=== PATIENT | female | born 1935 | race Caucasian/White ===

== ENCOUNTER 2017-09-10 19:02 | Inpatient (IN) | payer OTHER, MEDICARE ==
[~2017-09-10] VITALS: Ht 165.1 cm; Wt 77.8 kg
--- NOTE | 2017-09-10 19:23 | ED GENERAL ADULT ---
History of Present Illness General Chief Complaint: Fall Stated Complaint: PT FELL, AMS, CONFUSION, SOB Source: patient, family Exam Limitations: no limitations Vital Signs & Intake/Output Vital Signs & Intake/Output Vital Signs Date Time Temp Pulse Resp B/P B/P Pulse O2 O2 Flow FiO2 Mean Ox Delivery Rate 09/10 2149 157 18 133/82 09/10 2148 157 18 133/82 96 Room Air 09/10 2124 178 18 101/77 97 Room Air 09/11 2055 97 Room Air 09/10 2044 159 16 110/73 97 Room Air 09/10 2013 178 18 152/67 09/10 1917 97.2 75 20 110/79 94 Room Air Triage Note: PER , PT FELL ON 09/01 DUE TO WEKANESS. NOW HAS PROGRESSIVE WEKANESS, CONFUSION , POOR PO INTAKE. STATES INR IS 11, UNSURE IF PT IS COMPLIANT WITH MEDS. EKG DONE ON ARRIVAL Triage Nurses Notes Reviewed? yes Onset: Gradual Duration: week(s):, waxing and waning Timing: recent history Injury Environment: home Severity: mild Modifying Factors: Improves With: rest. Associated Symptoms: palpitations HPI: 82 yo woman h/o afib, presents with weakness. Per family, she has had reduced oral intake for the past 1-1.5 weeks, with questionable compliance of her medications. She notes that today she felt weaker and then felt her heart rate was very rapid. She noted palpitations, but no dizziness, chest pain, headache. Past History Travel History Traveled to [place] past 21 day No Medical History Any Pertinent Medical History? see below for history Cardiovascular: AFIB, myocardial infarction Surgical History Surgical History: none Psychosocial History What is your primary language Maltese Tobacco Use: Quit >30 days ago ETOH Use: denies use Family History Hx Contributory? No Review of Systems Review of Systems Constitutional: Reports: no symptoms. EENTM: Reports: no symptoms. Respiratory: Reports: no symptoms. Cardiovascular: Reports: no symptoms. GI: Reports: no symptoms. Genitourinary: Reports: no symptoms. Musculoskeletal: Reports: no symptoms. Skin: Reports: no symptoms. Neurological/Psychological: Reports: no symptoms. Hematologic/Endocrine: Reports: no symptoms. Immunologic/Allergic: Reports: no symptoms. All Other Systems: Reviewed and Negative Physical Exam Physical Exam General Appearance: well developed/nourished, no apparent distress Head: atraumatic, normal appearance Eyes: Bilateral: normal appearance. Ears, Nose, Throat: normal pharynx, normal ENT inspection Neck: normal inspection Respiratory: normal breath sounds, chest non-tender, no respiratory distress, quiet respiration Cardiovascular: tachycardic, irregular Gastrointestinal: normal bowel sounds, soft, non-tender, no organomegaly Back: normal inspection, normal range of motion Extremities: normal inspection, normal capillary refill, normal range of motion, no edema Neurologic/Psych: no motor/sensory deficits, awake, alert, oriented x 3 Skin: intact, normal color, warm/dry Core Measures ACS in differential dx? No CVA/TIA Diagnosis: No Sepsis Present: No Sepsis Focused Exam Completed? No Progress Differential Diagnoses I considered the following diagnoses in my evaluation of the patient: Plan of Care: Orders Procedure Date/time Status Nothing by Mouth 09/11 B Active Patient Data 09/10 2245 Active Saline Lock 09/10 2237 Active Misc Message 09/10 2237 Active ED Holding Orders 09/10 2237 Active Admit to inpatient 09/10 2237 Active Vital Signs 09/10 2237 Active Code Status 09/10 2237 Active TROPONIN LEVEL 09/10 1922 Complete PARTIAL THROMBOPLASTIN TIME 09/10 1922 Complete PROTHROMBIN TIME 09/10 192 Complete LIPASE 09/10 1922 Complete HEPATIC FUNCTION PANEL 09/10 1922 Complete D-DIMER 09/10 1922 Complete CBC WITHOUT DIFFERENTIAL 09/10 1922 Complete BASIC METABOLIC PANEL 09/10 1922 Complete AMYLASE 09/10 1922 Complete EKG 09/10 1905 Active Current Medications Sig/Willy Start time Last Medication Dose Stop Time Status Admin Metoprolol Tartrate 5 MG ONCE ONE 09/10 2299 UNVr (Lopressor) 09/10 230 Sodium Chloride 1,000 ML BOLUS ONE 09/10 230 UNVr (Normal Saline 0.9%) 09/10 2359 Diltiazem HCl 125 MG Q8H 09/10 2129 UNVr 09/10 (Cardizem DRIP) 2129 Dextrose/Water 100 ML (D5W) Laboratory Tests 09/10/171955: Anion Gap 15, Estimated GFR 39 L, BUN/Creatinine Ratio 23.8, Glucose 109 H, Calcium 9.6, Total Bilirubin 1.0, Direct Bilirubin 0.7 H, AST 19, ALT 25, Alkaline Phosphatase 59, Troponin I < 0.01, Total Protein 7.1, Albumin 3.8, Amylase 56, Lipase 214, PT 100.3 *H, INR 9.00 *H, APTT 46 H, D-Dimer High Sensitivty < 200, CBC w Diff NO MAN DIFF REQ, RBC 4.78, MCV 87.5, MCH 28.9, MCHC 33.0, RDW 16.9 H, MPV 11.5 H, Gran % 71.3, Lymphocytes % 19.2 L, Monocytes % 8.7, Eosinophils % 0.3, Basophils % 0.5, Absolute Granulocytes 3.8, Absolute Lymphocytes 1.0 L, Absolute Monocytes 0.5, Absolute Eosinophils 0, Absolute Basophils 0 Diagnostic Imaging: Viewed by Me: Radiology Read, CT Scan. Discussed w/RAD: Radiology Read, CT Scan. Radiology Impression: PATIENT: JESSIE LEON PRESENT AGE: 82 PATIENT ACCOUNT NO: [id number] : 33 LOCATION: [facility] ORDERING PHYSICIAN: Asim Hancock MD SERVICE DATE: 09/10/17 EXAM TYPE: CAT - CT CERV SPINE WO IV CONTRAST; CT HEAD WO IV CONTRAST EXAMINATION: CT HEAD WITHOUT CONTRAST CT CERVICAL SPINE WITHOUT CONTRAST CLINICAL INFORMATION: Trauma. Change in mental status. Patient is 82 years old. COMPARISON: None. TECHNIQUE: Contiguous axial imaging was performed from the skull base to vertex without intravenous administration of contrast. Multidetector helical imaging was performed through the cervical spine. DLP: 931 mGy-cm. FINDINGS: HEAD: There is no evidence of acute intracranial hemorrhage or territorial infarction. No abnormal mass effect or midline shift is seen. Larios to white matter differentiation is well preserved. No extra-axial fluid collections are identified. The ventricles are enlarged consistent with the deepened sulci due to age related atrophy. Periventricular white matter hypoattenuation is due to microvascular disease. The osseous structures and soft tissues are normal. There is considerable calcification involving the cavernous portions of both internal carotid arteries. The mastoid air cells and visualized portions of the paranasal sinuses are well aerated. CERVICAL SPINE: No acute fracture or dislocation is identified in the cervical spine. Vertebral height is preserved. There is anterolisthesis of C3 on C5 and C7 and T1. Due to significant facet arthritis. There is significant disc space narrowing at the levels of C4-C7. The atlantoaxial articulation is normally maintained. The paraspinal soft tissues are normal. Groundglass opacity in the left apex be due to small airways disease. IMPRESSION: 1. No acute intracranial pathology. 2. No evidence of acute cervical spine traumatic injury. Cervical spondylosis. DICTATED BY: Suhail Mckeon MD DATE/TIME DICTATED:09/10/172100 CASE ADVOCATE:KASSANDRA DATE/TIME TRANSCRIBED:09/10/172100 CONFIDENTIAL, DO NOT COPY WITHOUT APPROPRIATE AUTHORIZATION. <Electronically signed in Other Vendor System> SIGNED BY: Suhail Mckeon MD 09/10/172117 CXR Impression: PATIENT: JESSIE LEON PRESENT AGE : 82 PATIENT ACCOUNT NO: [id number] : 33 LOCATION: [facility] ORDERING PHYSICIAN: Asim Hancock MD SERVICE DATE: 09/10/17 EXAM TYPE: RAD - XRY-PORTABLE CHEST XRAY EXAMINATION: XR PORTABLE CHEST CLINICAL INFORMATION: Chest pain COMPARISON: None TECHNIQUE: Portable frontal view of the chest was obtained. 8:06 PM FINDINGS: Heart size is enlarged. There is vascular wall calcifications of aortic arch. There is no acute abnormality. There is no pulmonary vascular congestion. The lungs are clear. No pleural effusion. No pneumothorax. IMPRESSION: No acute abnormality of the chest. DICTATED BY: Miguel Penn MD DATE/TIME DICTATED:09/10/172024 CASE ADVOCATE:KASSANDRA DATE/ TIME TRANSCRIBED:09/10/172024 CONFIDENTIAL, DO NOT COPY WITHOUT APPROPRIATE AUTHORIZATION. <Electronically signed in Other Vendor System> SIGNED BY: Miguel Penn MD 09/10/172028 Initial ED EKG: AFIB, RATE 170 Departure Departure Disposition: STILL A PATIENT Condition: Stable Clinical Impression Primary Impression: Atrial fibrillation with rapid ventricular response Secondary Impressions: Dehydration, Renal failure Referrals: Xavier LORENZO,Anthony Kumar Departure Forms: Customer Survey General Discharge Information Comments 09/10/17, 21:33... discussed with dr. palafox... pt with afib with rvr, on dilt gtt... merits admission, dilt gtt, for further evaluation. Admission Note Spoke With: Daysi Amador MD Documentation of Exam: Documentation of any treatments & extenuating circumstances including Concerns Regarding Discharge (functional status, medication knowledge or non-compliance, living conditions, etc.) that warrant an admission rather than observation: pt with afib with RVR, likely due to dehydration.... pt tolerating iv fluids... on dilt gtt as well... merits tele, monitoring, cards eval. Critical Care Note Critical Care Note Critical Care Time: 30-74 min
[2017-09-10 20:13] LABS: ABSOLUTE BASOPHIL COUNT 0 /CUMM (0.0-0.2); ABSOLUTE EOSINOPHIL COUNT 0 /CUMM (0.0-0.7); ABSOLUTE GRANULOCYTE CT 3.8 /CUMM (1.4-6.5); ABSOLUTE MONOCYTE COUNT 0.5 /CUMM (0.10-0.60); BASOPHIL % 0.5 % (0.0-2.0); EOSINOPHIL % 0.3 % (0-5); GRANULOCYTE % 71.3 % (42.2-75.2); HEMATOCRIT 41.8 % (37-47); MEAN CORPUSCULAR HGB 28.9 PG (27.0-31.0); MEAN CORPUSCULAR VOLUME 87.5 FL (81.0-99.0); MEAN PLATELET VOLUME 11.5 FL (7.4-10.4); PLATELET COUNT 101 /CUMM (130-400); RBC DISTRIBUTION WIDTH 16.9 % (11.5-14.5); RED BLOOD CELL CT 4.78 /CUMM (4.20-5.40); WHITE BLOOD CELL COUNT 5.4 /CUMM (4.8-10.8)
[2017-09-10 20:19] LABS: PTT 46 SEC (25-37)
--- NOTE | 2017-09-10 20:29 | RADIOLOGY REPORT ---
EXAMINATION: XR PORTABLE CHEST CLINICAL INFORMATION: Chest pain COMPARISON: None TECHNIQUE: Portable frontal view of the chest was obtained. 8:06 PM FINDINGS: Heart size is enlarged. There is vascular wall calcifications of aortic arch. There is no acute abnormality. There is no pulmonary vascular congestion. The lungs are clear. No pleural effusion. No pneumothorax. IMPRESSION: No acute abnormality of the chest.
[2017-09-10 20:52] LABS: PT 100.3 SEC (9.4-12.5)
--- NOTE | 2017-09-10 21:18 | CT SCAN REPORT ---
EXAMINATION: CT HEAD WITHOUT CONTRAST CT CERVICAL SPINE WITHOUT CONTRAST CLINICAL INFORMATION: Trauma. Change in mental status. Patient is 82 years old. COMPARISON: None. TECHNIQUE: Contiguous axial imaging was performed from the skull base to vertex without intravenous administration of contrast. Multidetector helical imaging was performed through the cervical spine. DLP: 931 mGy-cm. FINDINGS: HEAD: There is no evidence of acute intracranial hemorrhage or territorial infarction. No abnormal mass effect or midline shift is seen. Larios to white matter differentiation is well preserved. No extra-axial fluid collections are identified. The ventricles are enlarged consistent with the deepened sulci due to age related atrophy. Periventricular white matter hypoattenuation is due to microvascular disease. The osseous structures and soft tissues are normal. There is considerable calcification involving the cavernous portions of both internal carotid arteries. The mastoid air cells and visualized portions of the paranasal sinuses are well aerated. CERVICAL SPINE: No acute fracture or dislocation is identified in the cervical spine. Vertebral height is preserved. There is anterolisthesis of C3 on C5 and C7 and T1. Due to significant facet arthritis. There is significant disc space narrowing at the levels of C4-C7. The atlantoaxial articulation is normally maintained. The paraspinal soft tissues are normal. Groundglass opacity in the left apex be due to small airways disease. IMPRESSION: 1. No acute intracranial pathology. 2. No evidence of acute cervical spine traumatic injury. Cervical spondylosis.
--- NOTE | 2017-09-10 22:52 | History & Physical ---
Crystal LORENZO,[facility] 09/10/17 9837: General Information and HPI MD Statement: I have seen and personally examined JESSIE LEON and documented this H&P. The patient is a 82 year old F who presented with a patient stated chief complaint of [rapid heart rate]. Source of Information: patient, family Exam Limitations: no limitations History of Present Illness: 82 yo F with PMH of Atrial Fibrilliation and remote history of ND 20 years ago was brought in to the ED by her family members for evaluation of weakness and poor appetite. Most of the history has been obtained from the [facility]. The daughter states that for the past two weeks the patient has not been eating and drinking properly. She also has been requiring the use of a walker while previously she was independent. She has been inconsistent with her doctors appointments. Last week she went to the Coumadin clinic for her INR. She got a call from the clinic that her INR is high and she should come back to the clinic. However, the patient never went and had been avoiding to go back there. She follows quartz mounter Dr. Park at [place] for A. fib who according to the daughter sees him twice a year. The patient's family members were concerned about her as they noticed her to be confused as well and after a family meeting tonjasmina, they decided to bring her to the ED as they felt something was wrong with her. Allergies/Medications Home Med list Diltiazem HCl (Cartia Xt) 240 MG CAP.ER.24H 240 MG PO Q24 HEART HEALTH ( Reported) Metoprolol Succinate 200 MG TAB.ER.24H 1 TAB PO DAILY HEART HEALTH (Reported) Rosuvastatin Calcium (Crestor) 10 MG TABLET 1 TAB PO DAILY HYPERLIPIDEMIA ( Reported) Past History Travel History Traveled to [place] past 21 day No Medical History Cardiovascular: AFIB, myocardial infarction Surgical History Surgical History: none Past Family/Social History Psychosocial History ETOH Use: denies use Review of Systems Review of Systems Constitutional: Denies: chills, fever. EENTM: Reports: no symptoms. Cardiovascular: Reports: peripheral edema. Denies: chest pain. Respiratory: Denies: short of breath. GI: Reports: no symptoms. Musculoskeletal: Denies: joint pain. Skin: Reports: no symptoms. Neurological/Psychological: Reports: no symptoms. Hematologic/Endocrine: Reports: no symptoms. Exam & Diagnostic Data Last 24 Hrs of Vital Signs/I&O Vital Signs Date Time Temp Pulse Resp B/P B/P Pulse O2 O2 Flow FiO2 Mean Ox Delivery Rate 09/11 0136 158 09/109 142 16 115/54 97 Room Air 09/10 2303 162 16 103/72 09/100 157 18 133/82 09/10 2148 157 18 133/82 96 Room Air 09/10 2124 178 18 101/77 97 Room Air 09/11 2055 97 Room Air 09/10 2044 159 16 110/73 97 Room Air 09/10 2013 178 18 152/67 09/10 1917 97.2 75 20 110/79 94 Room Air Intake & Output 09/11 0800 09/11 0000 09/10 1600 Intake Total 2500 2000 Output Total 200 100 Balance 2300 1900 Intake, IV 2500 2000 Output, Urine 200 100 Patient 140 lb Weight Weight Reported by Patient Measurement Method Physical Exam General Appearance Alert, Oriented X3, Cooperative, No Acute Distress Skin No Rashes, No Breakdown Skin Temp/Moisture Exam: Warm/Dry Sepsis Skin Exam (color): Normal for Ethnicity HEENT Atraumatic Cardiovascular Normal S1, Normal S2, No Murmurs, tachycardia Lungs Clear to Auscultation, Normal Air Movement Abdomen Soft, No Tenderness Neurological Normal Speech Extremities b/l non pitting lower extremity edema Diagnostic Data CXR Results Heart size is enlarged. There is vascular wall calcifications of aortic arch. There is no acute abnormality. There is no pulmonary vascular congestion. The lungs are clear. No pleural effusion. No pneumothorax. Assessment/Plan Assessment: 82 yo F with PMH of Atrial Fibrilliation and remote history of ND 20 years ago was brought in to the ED by her family members for evaluation of weakness and poor appetite. Assessment: 1. Atrial Fibrilliation with RVR 2. Supratherapeutic INR 3. UTI 4. Thrombocytopenia 5. MILI Plan: * Admit patient to telemetry floor * Start Cardizem drip @15ml/hr. * Will transition her to oral Cardizem 240mg CD and wean her off Cardizem drip. * Close blood pressure monitoring * Rule out ACS with serial trops and EKG. * Will hold Warfarin for now as her INR is supratherapeutic * Start Ceftriaxone 1g IV for UTI. She does not have a white count or fever, but did have confusion as stated by family members. * Follow urine culture * Monitor platelet count * Fluid hydration with NS. Maintenance at 75ml/hr. * IV Metoprolol pushes as needed. * Cardiology consult with Dr Olvera. * Diet: Heart Healthy * DVT Prophylaxis: On Coumadin * Code: DNR/DNI * Daughter didn't know her mother medications the only medication that was confirmed is the metoprolol succinate 200 mg daily, she will bring medication list tomorrow please confirm her medications As Ranked By This Provider Problem List: 1. Atrial fibrillation with rapid ventricular response Core Measures/Misc (02/16) Acute Coronary Syndrome ACS Diagnosis: No Congestive Heart Failure Congestive Heart Failure Diagnosis No Cerebrovascular Accident CVA/TIA Diagnosis: No VTE (View Protocol) VTE Risk Factors Age>40 No Mechanical VTE Prophylaxis d/t N/A MechProphylax Ordered No VTE Pharm Prophylaxis d/t NA PharmProphylax ordered Sepsis (View protocol) Sepsis Present: No Kari Alexander 09/11/17 0225: Resident Review Statement Resident Statement: examined this patient, discussed with materials intern, agreed with materials intern, discussed with family, reviewed EMR data (avail), discussed with nursing , discussed with case mgmt, reviewed images Other Findings: Mrs. Leon is an 82 yo lady with PMHx. of A. fib on Coumadin presented to emergency department with a chief complaint of AMS, confusion, agitation, and decreased oral intake. Most of the history was obtained from the daughter who was at bedside as patient was angry and wanted to sleep. Per daughter, patient's has been noticing that the patient has decrease oral intake over the last week, she also started to feel weak and she was using her walker for ambulation even though she has been walking without it prior to that, they noticed that she's been unsteady on her feet with a recent fall described as pure mechanical fall with no prior symptoms to the fall such as chest pain, palpitation, dizziness, and also there was no loss of consciousness. Patient is only following with her quartz mounter Dr. Park at [place] for A. fib and to adjust her Coumadin dose last time she saw him was last week when he checked her Coumadin and advised her to go to the hospital as her INR was elevated, per the daughter patient was in denial and she thought she is fine so she refused to go to the emergency department however after the family noticed that she has been confused and they were concern about the patient not eating and more weak they had a family meeting today and they decided to bring the patient to the hospital for more evaluation. At our emergency department she started to be tachycardic up to 160, she was given IV Lopressor, Cardizem, and then she was started on Cardizem drip Her labs is pertinent to elevated INR of 9, her urine analysis is positive nitrates, positive esterase, packed WBC, and positive for hemoglobin Assessment: #A. fib with RVR #Supratherapeutic INR #UTI #MILI Plan: * Patient will be admitted to telemetry floor for A. fib with RVR * We'll continue Cardizem drip for now, case discussed with attending, as there is a national shortage of Cardizem, and also the patient didn't take her medication today will resume her home dose of Cardizem and Metoprolol succinate and try to taper her Cardizem drip. If this attempt was failed then we will consider amiodarone * Well hold Coumadin * We'll start the patient on Ceftriaxone for UTI * Urine culture * We'll hydrate the patient with IV normal saline at 75 per hour * Daughter didn't know her mother medications the only medication that was confirmed is the metoprolol succinate 200 mg daily, she will bring medication list tomorrow please confirm her medications DVT prophylaxis with Coumadin which is currently on hold given supratherapeutic INR DNR/DNI Update: Patient's heart rate remains elevated up to 150 beat/min despite the followin IV cardizem, 30mg PO cardizem, then Cardizem drip initiated at ED, with home dose of oral cardizem started afterward in aim to taper the drip, she also received a total of 20 mg Lopressor (As 5 mg IV pushes), also a total of 3.5 L of IV NS was given, Cardizem drip was discontinued as the patient became hypotensive her BP in 80's systolic with persistant heart rate in 150's. I spoke with who agreed with Digoxin 0.5 IV once, patient will be seen by Dr. Laguerre today Daysi Amador 09/11/17 0435: General Information and HPI Allergies/Medications Allergies: Coded Allergies: No Known Allergies (09/11/17) Attending MD Review Statement Attending Statement Attending MD Statement: examined this patient, discuss w/resident/PA/LEAD SYSTEMS ANALYST, agreed w/resident/PA/LEAD SYSTEMS ANALYST, reviewed EMR data (avail), reviewed images, amended to note Attending Assessment/Plan: CC: confusion, poor oral intake PMH: A. fib History is mostly provided by patient's daughter. According to her patient saw her quartz mounter approximately one week back, labs were done at that time and she was told that her INR was high and she should go to ER. Patient did not go to ER at that time. Later during the same week patient appeared more lethargic, confused, tired, decreased oral intake so family decided to bring her to ER. At this moment patient does not provide any complaints, denies chest pain, chest tightness, palpitations, urinary burning or frequency, abdominal pain, nausea vomiting or diarrhea. But patient's history and ROS is not reliable. Vitals: T max 97.2, pulse 178, RR 20, blood pressure 110 or 79, saturating 94% on room air On exam: A O 2, not cooperative, appears irritated, refuses to answer questions , no acute distress, neck supple, JVD normal, no lymphadenopathy, mucosa dry, no focal neurological deficit, no dependent edema, no obvious skin rashes or inflammation CVS: S1-S2, irregular, tachycardia. RS: Clear to auscultate bilaterally. Abdomen: Soft, NT, ND, bowel sounds present. Peripheral pulses perfusion normal CXR: No acute abnormality CT head and cervical spine without contrast: 1. No acute intracranial pathology. 2. No evidence of acute cervical spine traumatic injury. Cervical spondylosis. Assessment and plan 82-year-old female, completely independent before this sickness according to daughter, past medical history significant for A. fib presented in ER for a one- week history of tiredness, confusion, decreased appetite, lethargy. Patient appears irritated and she does not provide any symptoms. History mostly obtained from patient's daughters. They refilled her prescription yesterday for metoprolol, according to PMC history she appears to be on diltiazem extended- release and warfarin. It is possible that patient was not compliant with his medications at home. Her INR was supratherapeutic a week ago, did not follow-up with the doctor or at ER. Currently no acute bleeding. Patient is found in A. fib with RVR, no acute respiratory distress, no JVD, lungs clear to auscultate, no obvious edema. Patient has UTI and which may have precipitated confusion, sepsis and A. fib with RVR. + A. fib with RVR + UTI : Cystitis, no evidence of sepsis + Acute kidney injury + Thrombocytopenia + Supratherapeutic INR - Admit to ICU - Continue aggressive hydration - Continue diltiazem drip - Start by mouth diltiazem at home doses - When necessary metoprolol pushes - Urine cultures - IV ceftriaxone - Renal ultrasound - Hold warfarin - By mouth vitamin K if any evidence of bleeding - Cardiology consult 39 mins
[2017-09-11] MEDS ORDERED: CARTIA XT240 M1 PO (01:50)
[2017-09-11] MEDS ORDERED: METOPROLOL SUC200 M2 PO (01:51)
[2017-09-11] MEDS ORDERED: CRESTOR10 M1 PO (01:52)
--- NOTE | 2017-09-11 04:37 | Admission Certification ---
Admission Certification Certification Statement - As attending physician, I certify that at the time of - admission, based on clinical presentation, severity of - symptoms, need for further diagnostic testing and - therapeutic interventions, and risk of adverse outcomes - without in-hospital treatment, in my clinical assessment, - this patient requires an acute hospital stay for a minimum - of two nights or longer. I have also considered psychsocial - factors such as support system, advanced age, financial - issues, cognitive issues, and failed out-patient treatments, - past re-admission history, safety of patient, and lack of - compliance as applicable. Specific rationale supporting this admission is: A. fib with RVR
[2017-09-11 05:27] VITALS: BP 80/00
--- NOTE | 2017-09-11 07:32 | Cons- CRCU ---
Fredis LORENZO,Angelica 09/11/17 0731: General Information and HPI Consulting Request Date of Consult: 09/11/17 Requested By: Primary Team Reason for Consult: Atrial Fibrillation with RVR Supratherapeutic INR UTI Source of Information: patient, family Exam Limitations: no limitations History of Present Illness: Mr. Ness is an sure year-old lady with past medical history significant for atrial fibrillation on Coumadin and MO 20 years ago was brought in by her family because of the concerns of decreased by mouth intake, feeling weak and has been using walker for ambulation even know she was walking independently before that. Patient only follows up with her manager recruitment, Dr. Park, twice a year. She also follows up with the Coumadin clinic, last visit was a week ago whn she was found to have a high INR and was advised to come to the ER but the patient did not follow-up. Yesterday the family found the patient to be confused and brought her to the ER for further evaluation. In the ER patient was found to have a heart rate in 160s, INR of 9, creatinine 1.3 and platelet count of 101. Patient was given 1 dose of IV Cardizem 10 mg and 30 mg of by mouth Cardizem and was started on IV Cardizem drip. Allergies/Medications Allergies: Coded Allergies: No Known Allergies (09/11/17) Home Med List: Diltiazem HCl (Cartia Xt) 240 MG CAP.ER.24H 240 MG PO Q24 HEART HEALTH ( Reported) Metoprolol Succinate 200 MG TAB.ER.24H 1 TAB PO DAILY HEART HEALTH (Reported) Rosuvastatin Calcium (Crestor) 10 MG TABLET 1 TAB PO DAILY HYPERLIPIDEMIA ( Reported) Current Medications: Current Medications Sig/Willy Start time Last Medication Dose Route Stop Time Status Admin Atorvastatin Calcium 40 MG 1700 09/11 1700 AC PO Calcium Gluconate 0 .STK-MED ONE 09/10 2116 DC IV Ceftriaxone Sodium 1,000 MG DAILY 09/11 1000 AC IV Dextrose 0 .STK-MED ONE 09/10 2117 DC IV Digoxin 0.5 MG ONCE ONE 09/11 0630 DC 09/11 IV 09/11 0631 0632 Diltiazem HCl 0 .STK-MED ONE 09/12 431 DC .ROUTE Diltiazem HCl 0 .STK-MED ONE 09/11 430 DC .ROUTE Diltiazem HCl 240 MG Q24 09/11 0230 AC 09/11 PO 0224 Diltiazem HCl 125 MG Q8H 09/10 2130 DC 09/10 Dextrose/Water 100 ML IV 2130 Diltiazem HCl 30 MG STAT STA 09/100 DC 09/10 PO 09/10 Diltiazem HCl 0 .STK-MED ONE 09/10 2016 DC .ROUTE Diltiazem HCl 10 MG ONCE ONE 09/10 1929 DC 09/10 IV 09/10 Diltiazem HCl 125 MG Q12H 09/10 193 DC 09/10 Sodium Chloride 100 ML IV 204 Metoprolol Succinate 200 MG DAILY 09/11 0430 AC 09/11 PO 043 Metoprolol Succinate 200 MG DAILY 09/11 0400 DC PO Metoprolol Tartrate 0 .STK-MED ONE 09/11 0359 DC IV Metoprolol Tartrate 5 MG ONCE ONE 09/11 0330 DC 09/11 IV 09/11 0331 0358 Metoprolol Tartrate 5 MG ONCE ONE 09/11 0315 CAN IV 09/11 0316 Metoprolol Tartrate 0 .STK-MED ONE 09/11 0141 DC IV Metoprolol Tartrate 5 MG ONCE ONE 09/11 0115 DC 09/11 IV 09/11 0116 0136 Metoprolol Tartrate 5 MG ONCE ONE 09/10 2300 DC 09/10 IV 09/10 2301 2303 Metoprolol Tartrate 0 .STK-MED ONE 09/10 2257 DC IV Metoprolol Tartrate 0 .STK-MED ONE 09/10 213 DC IV Metoprolol Tartrate 5 MG ONCE ONE 09/10 2130 DC 09/10 IV 09/10 213 2134 Sodium Chloride 1,000 ML BOLUS ONE 09/11 0530 DC 09/11 IV 09/11 0729 0540 Sodium Chloride 1,000 ML BOLUS ONE 09/11 0315 DC 09/11 IV 09/11 0414 0315 Sodium Chloride 1,000 ML Q13H 09/11 0130 AC 09/11 IV 0812 Sodium Chloride 500 ML .Q1H 09/11 0115 DC IV Sodium Chloride 1,000 ML BOLUS ONE 09/10 2300 DC 09/10 IV 09/10 2359 2303 Sodium Chloride 1,000 ML BOLUS ONE [id number] DC 09/10 IV 09/10 Sodium Polystyrene 0 .STK-MED ONE 09/10 2116 DC Sulfonate .ROUTE Review of Systems Review of Systems Constitutional: Reports: no symptoms. EENTM: Reports: no symptoms. Cardiovascular: Reports: no symptoms. Respiratory: Reports: no symptoms. GI: Reports: no symptoms. Genitourinary: Reports: no symptoms. Musculoskeletal: Reports: no symptoms. Skin: Reports: no symptoms. Neurological/Psychological: Reports: no symptoms. Hematologic/Endocrine: Reports: no symptoms. Immunologic/Allergic: Reports: no symptoms. 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 Home Services at Home: None Smoking Status: Former Smoker ETOH Use: denies use Illicit Drug Use: denies illicit drug use Functional Ability ADLs Independent: dressing, eating, toileting, bathing. Ambulation: independent Exam & Diagnostic Data Last 24 Hrs of Vital Signs/I&O Vital Signs Date Time Temp Pulse Resp B/P B/P Pulse O2 O2 Flow FiO2 Mean Ox Delivery Rate 09/11 0800 97.0 128 22 92/60 98 Nasal 2.0L Cannula 09/11 0632 142 80/68 09/11 0527 98.1 151 22 80/00 93 Room Air Room Air 09/11 0436 152 09/11 0420 152 16 112/69 94 Room Air 09/11 0358 154 09/11 0224 142 103/57 09/11 0136 158 09/10 230 142 16 115/54 97 Room Air 09/10 2302 162 16 103/72 09/10 2149 157 18 133/82 09/10 2148 157 18 133/82 96 Room Air 09/10 2124 178 18 101/77 97 Room Air 09/11 2055 97 Room Air 09/10 2044 159 16 110/73 97 Room Air 09/10 2013 178 18 152/67 09/10 1918 97.2 75 20 110/79 94 Room Air Intake & Output 09/11 1600 09/11 0800 09/11 0000 Intake Total 3075 2000 Output Total 400 100 Balance 2675 1900 Intake, IV 3075 2000 Intake, Oral 0 Number 0 Bowel Movements Output, Urine 400 100 Patient 141 lb 140 lb Weight Weight Bed scale Reported by Patient Measurement Method Physical Exam General Appearance: no apparent distress, alert, awake, comfortable Head: atraumatic, normal appearance Eyes: Bilateral: normal appearance, PERRL, EOMI. Neck: normal inspection, supple, no JVD Respiratory: normal breath sounds, chest non-tender, no respiratory distress, lungs clear Cardiovascular: irregularly irregular Gastrointestinal: normal bowel sounds, soft, non-tender Extremities: normal inspection, normal range of motion, no edema Last 48 Hrs of Labs/Simone: Laboratory Tests 09/11/17 0800: PT 100.9 *H, INR 9.05 *H 09/11/17 0645: Anion Gap 12, Estimated GFR 53 L, Glucose 108 H, Lactic Acid 1.5, Calcium 7.7 L, Phosphorus 3.4, Magnesium 1.5 L, Total Bilirubin 0.6, AST 15, ALT 29, Troponin I < 0.01, Albumin 2.7 L, Free T4 1.94 H, Total T3 0.85 L, CBC w Diff NO MAN DIFF REQ, RBC 4.23, MCV 87.9, MCH 29.0, MCHC 33.0, RDW 16.6 H, MPV 11.8 H, Gran % 77.7 H, Lymphocytes % 16.4 L, Monocytes % 5.4, Eosinophils % 0.2, Basophils % 0.3, Absolute Granulocytes 3.5, Absolute Lymphocytes 0.7 L, Absolute Monocytes 0.2, Absolute Eosinophils 0, Absolute Basophils 0 09/11/17 0120: Troponin I < 0.01 09/10/17 2332: TSH Cancelled 09/10/17 2258: Urine Color YEL, Urine Clarity CLDY H, Urine pH 6.0, Ur Specific [place] >= 1.030, Urine Protein 100 H, Urine Ketones TRACE H, Urine Nitrite POS H, Urine Bilirubin NEG, Urine Urobilinogen 1.0, Ur Leukocyte Esterase MOD H, Ur Microscopic SEDIMENT EXAMINED, Urine RBC 15-25 H, Urine WBC PACKD H, Ur Epithelial Cells MOD H, Urine Bacteria PACKD H, Urine Hemoglobin LARGE H, Urine Glucose NEG 09/10/176: Anion Gap 15, Estimated GFR 39 L, BUN/Creatinine Ratio 23.8, Glucose 109 H, Calcium 9.6, Total Bilirubin 1.0, Direct Bilirubin 0.7 H, AST 19, ALT 25, Alkaline Phosphatase 59, Troponin I < 0.01, Total Protein 7.1, Albumin 3.8, Amylase 56, Lipase 214, TSH 2.010, PT 100.3 *H, INR 9.00 *H, APTT 46 H, D-Dimer High Sensitivty < 200, CBC w Diff NO MAN DIFF REQ, RBC 4.78, MCV 87.5, MCH 28.9, MCHC 33.0, RDW 16.9 H, MPV 11.5 H, Gran % 71.3, Lymphocytes % 19.2 L, Monocytes % 8.7, Eosinophils % 0.3, Basophils % 0.5, Absolute Granulocytes 3.8, Absolute Lymphocytes 1.0 L, Absolute Monocytes 0.5, Absolute Eosinophils 0, Absolute Basophils 0 Diagnostic Data CXR Results Heart size is enlarged. There is vascular wall calcifications of aortic arch. There is no acute abnormality. There is no pulmonary vascular congestion. The lungs are clear. No pleural effusion. No pneumothorax. Assessment/Plan CRCU Impression/Plan: Mr. Ness is an sure year-old lady with past medical history significant for atrial fibrillation on Coumadin and MO 20 years ago was brought in by her family because of the concerns of decreased by mouth intake, feeling weak and confusion and was found to be in atrial fibrillation with RVR on presentation. In the ER patient was found to have a heart rate in 160s, INR of 9, creatinine 1.3 and platelet count of 101. UA dirty with positive nitrates, esterase and packed WBCs. Problem list 1. Atrial fibrillation with RVR 2. Supratherapeutic INR 3. Urinary tract infection 4. MILI 5. Thrombocytopenia - Continue monitoring in ICU - Patient was given 1 dose of IV Cardizem 10 mg and 30 mg of by mouth Cardizem and was started on IV Cardizem drip. She also received IV Lopressor pushes, total of 20 mg after which she was hypotensive and the Cardizem drip was stopped. She was given 3.5 L of IV fluids with some improvement in her blood pressure. Cardiology was consulted who recommended giving 1 dose of IV digoxin and later starting the patient on amiodarone drip. Blood pressure improved with systolic blood pressure in 90s and heart rate in 140's. Will await cardiology recommendations regarding starting amiodarone drip - Repeat INR this morning remains the same at 9. We'll continue to hold Coumadin and repeat INR in a.m. - Creatinine improved with the IV fluids will continue to monitor. - Continue ceftriaxone for presumed UTI(positive UA in elderly patient with new onset confusion) - Continue to monitor platelet count. - Continue home medications(?? Change Cardizem and metoprolol to immediate release because of the borderline low blood pressure) DVT prophylaxis; Patient is DNR/DNI Problem List: 1. Atrial fibrillation with rapid ventricular response 2. Renal failure Consult Acknowledgment - Thank you for your consult request. Kristen LORENZO,[facility] 09/11/17 1353: Assessment/Plan CRCU Other Findings/Comments: Seen and examined independently Full note as above Problem list 1. Atrial fibrillation with RVR 2. Supratherapeutic INR 3. Urinary tract infection 4. MILI 5. Thrombocytopenia 6. Altered Thyroid function tests will repeat Plan Cont dilt drip Dig iv cont betablocker Rpt free t4 in am Cont iv abx for now Will follow closely Pt needs icu monitoring TTS 38 mins Consult Acknowledgment - Thank you for your consult request.
[2017-09-11 08:00] VITALS: BP 92/60
[2017-09-11 08:02] LABS: ABSOLUTE BASOPHIL COUNT 0 /CUMM (0.0-0.2); ABSOLUTE EOSINOPHIL COUNT 0 /CUMM (0.0-0.7); ABSOLUTE GRANULOCYTE CT 3.5 /CUMM (1.4-6.5); ABSOLUTE LYMPH COUNT 0.7 /CUMM (1.2-3.4); ABSOLUTE MONOCYTE COUNT 0.2 /CUMM (0.10-0.60); BASOPHIL % 0.3 % (0.0-2.0); EOSINOPHIL % 0.2 % (0-5); GRANULOCYTE % 77.7 % (42.2-75.2); HEMATOCRIT 37.2 % (37-47); MEAN CORPUSCULAR VOLUME 87.9 FL (81.0-99.0); MEAN PLATELET VOLUME 11.8 FL (7.4-10.4); RBC DISTRIBUTION WIDTH 16.6 % (11.5-14.5); RED BLOOD CELL CT 4.23 /CUMM (4.20-5.40); WHITE BLOOD CELL COUNT 4.4 /CUMM (4.8-10.8)
[2017-09-11 08:30] LABS: PLATELET COUNT 85 /CUMM (130-400)
[2017-09-11 08:54] LABS: PT 100.9 SEC (9.4-12.5)
[2017-09-11 16:00] VITALS: BP 92/40
--- NOTE | 2017-09-11 16:06 | ULTRASOUND REPORT ---
EXAMINATION: US RETROPERITONEAL COMPLETE (RENAL) CLINICAL INFORMATION: Acute kidney insufficiency. Rule out obstruction or stone. COMPARISON: None TECHNIQUE: Real-time imaging of the kidneys and bladder. FINDINGS: RIGHT KIDNEY: 9.5 x 3.7 x 3.8 cm (SAG x AP x TRV). The kidney is normal in size, contour, and echogenicity. Renal cortical thickness is normal. No calculi or focal parenchymal lesions. No hydronephrosis. There is a trace amount of free fluid around the upper pole of the right kidney. LEFT KIDNEY: 9.9 x 4.8 x 4.1 cm (SAG x AP x TRV). The kidney is normal in size, contour, and echogenicity. Renal cortical thickness is normal. No calculi or suspicious focal parenchymal lesions. Benign-appearing 1.7 x 1.9 x 1.5 cm simple avascular cyst is seen in the medial mid left kidney. No hydronephrosis. BLADDER: Bladder is suboptimally assessed since the patient voided just prior to the exam. Bladder volume is 39.5 mL. Bilateral ureteral jets are not demonstrated. OTHER: Incidentally seen is diffuse thickening of the gallbladder wall and small amount of gallbladder wall edema or pericholecystic fluid. This is incompletely assessed on this renal ultrasound. IMPRESSION: 1. Kidneys bilaterally show no evidence of obstruction or calculi. 2. Trace amount of fluid is seen around the upper pole of the right kidney, a nonspecific finding. 3. There appears to be abnormal gallbladder wall thickening and either gallbladder wall edema or pericholecystic fluid. This is incompletely assessed on this renal ultrasound but does raise the suspicion of cholecystitis in the appropriate clinical setting. Close clinical correlation is requested. Consider dedicated assessment of the gallbladder, liver and biliary tree with an abdominal ultrasound. 4. Urinary bladder is suboptimally assessed due to decompression.
--- NOTE | 2017-09-11 16:42 | Cons- Cardiology ---
General Information and HPI Consulting Request Date of Consult: 09/11/17 Requested By: Daysi Amador MD Reason for Consult: Atrial fibrillation with poorly controlled rate; hypotension Source of Information: patient, family Exam Limitations: no limitations History of Present Illness: The patient is an 82-year-old female. Her regular ultrasonographer is Dr. Park in [place]. Her past history is remarkable for atrial fibrillation , coronary disease with a remote myocardial infarction, etc. The patient was brought to the emergency room by her family for evaluation of weakness and anorexia. Her initial history was obtained from the family. According to the family, the patient has been following with regular ultrasonographer twice a. More recently, she has been somewhat inconsistent with her medications and physician visits. On the day of admission, the patient was noted to be somewhat confused. She was brought to the emergency room for further evaluation. From a cardiac standpoint, the patient's blood pressure was borderline in the emergency room and she was noted to be in atrial fibrillation with an elevated ventricular rate. Initially, she was treated with multiple doses of Cardizem, etc. and started on a high-dose Cardizem drip IV. Subsequent, due to poorly controlled rate and low blood pressure the patient was transferred to the ICU for better monitoring and consideration for IV amiodarone. Apparently, the IV amiodarone was never started and the patient was given one dose of 0.5 mg of IV digoxin early today. At the present time, her rate is slightly better controlled but remains elevated. The patient however is alert and denies any symptoms whatsoever. Allergies/Medications Allergies: Coded Allergies: No Known Allergies (09/11/17) Home Med List: Atorvastatin Calcium 40 MG TABLET 40 MG PO DAILY CHOLESTEROL Digoxin (Lanoxin) 125 MCG TABLET 0.125 MG PO DAILY cardiac Diltiazem HCl (Cartia Xt) 240 MG CAP.ER.24H 240 MG PO Q24 HEART HEALTH ( Reported) Diltiazem HCl (Cardizem Cd) 240 MG CAP.ER.24H 480 MG PO DAILY heart rate Metoprolol Succinate 200 MG TAB.ER.24H 1 TAB PO DAILY HEART HEALTH (Reported) Rosuvastatin Calcium (Crestor) 10 MG TABLET 1 TAB PO DAILY HYPERLIPIDEMIA ( Reported) Warfarin Sodium (Coumadin) 5 MG TABLET 1 TAB PO DAILY afib (Reported) Current Medications: Current Medications Sig/Willy Start time Last Medication Dose Route Stop Time Status Admin Atorvastatin Calcium 40 MG 1700 09/11 1700 AC PO Calcium Gluconate 0 .STK-MED ONE 09/10 2117 DC IV Ceftriaxone Sodium 1,000 MG DAILY 09/11 1151 AC 09/11 IV 1231 Ceftriaxone Sodium 1,000 MG DAILY 09/11 1000 DC IV Dextrose 0 .STK-MED ONE 09/10 2118 DC IV Digoxin 0.25 MG ONCE ONE 09/11 1230 DC 09/11 IV 09/11 1231 1231 Digoxin 0.5 MG ONCE ONE 09/11 0630 DC 09/11 IV 09/11 0631 0632 Diltiazem HCl 0 .STK-MED ONE 09/11 043 DC .ROUTE Diltiazem HCl 0 .STK-MED ONE 09/11 430 DC .ROUTE Diltiazem HCl 240 MG Q24 09/11 0230 AC 09/11 PO 0224 Diltiazem HCl 125 MG Q8H 09/10 2130 DC 09/10 Dextrose/Water 100 ML IV 2130 Diltiazem HCl 30 MG STAT STA 09/100 DC 09/10 PO 09/10 2120 2150 Diltiazem HCl 0 .STK-MED ONE 09/10 2016 DC .ROUTE Diltiazem HCl 10 MG ONCE ONE 09/10 193 DC 09/10 IV 09/10 Diltiazem HCl 125 MG Q12H 09/10 1930 DC 09/10 Sodium Chloride 100 ML IV 2046 Magnesium Sulfate 1 GM Q2H 09/11 1230 DC 09/11 Dextrose/Water 100 ML IV 09/11 1629 1340 Magnesium Sulfate 1 GM Q2H 09/11 1145 DC Dextrose/Water 100 ML IV Metoprolol Succinate 200 MG DAILY 09/11 0430 AC 09/11 PO 0436 Metoprolol Succinate 200 MG DAILY 09/11 0400 DC PO Metoprolol Tartrate 0 .STK-MED ONE 09/11 0359 DC IV Metoprolol Tartrate 5 MG ONCE ONE 09/11 0330 DC 09/11 IV 09/11 0331 0358 Metoprolol Tartrate 5 MG ONCE ONE 09/11 0315 CAN IV 09/11 0316 Metoprolol Tartrate 0 .STK-MED ONE 09/11 0141 DC IV Metoprolol Tartrate 5 MG ONCE ONE 09/11 0115 DC 04/12 IV 09/11 0116 0136 Metoprolol Tartrate 5 MG ONCE ONE 09/10 2300 DC 09/10 IV 09/10 2301 2303 Metoprolol Tartrate 0 .STK-MED ONE 09/10 2257 DC IV Metoprolol Tartrate 0 .STK-MED ONE 09/10 2135 DC IV Metoprolol Tartrate 5 MG ONCE ONE 09/10 2130 DC / IV 09/10 2131 2134 Phytonadione 2.5 MG ONCE ONE 09/11 1230 DC 04/ PO 09/11 1231 1504 Sodium Chloride 1,000 ML BOLUS ONE 09/11 0530 DC 09/11 IV 09/11 0729 0540 Sodium Chloride 1,000 ML BOLUS ONE 09/11 0315 DC 09/11 IV 09/11 0414 0315 Sodium Chloride 1,000 ML Q13H 09/11 0130 AC 09/11 IV 0812 Sodium Chloride 500 ML .Q1H 09/11 0115 DC IV Sodium Chloride 1,000 ML BOLUS ONE 09/10 2300 DC 09/10 IV 09/10 2359 2303 Sodium Chloride 1,000 ML BOLUS ONE 09/10 2130 DC 09/10 IV 09/10 2229 2127 Sodium Polystyrene 0 .STK-MED ONE 09/10 2117 DC Sulfonate .ROUTE Past History Travel History Traveled to [place] past 21 day No Medical History Blood Transfusion Hx: No Neurological: NONE EENT: NONE Cardiovascular: AFIB, myocardial infarction Respiratory: NONE Gastrointestinal: NONE Hepatic: NONE Renal: NONE Musculoskeletal: NONE Psychiatric: NONE Endocrine: NONE Blood Disorders: NONE Cancer(s): NONE 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 Home Services at Home: None Smoking Status: Former Smoker ETOH Use: denies use Illicit Drug Use: denies illicit drug use Functional Ability ADLs Independent: dressing, eating, toileting, bathing. Ambulation: independent Exam & Diagnostic Data Vital Signs and I&O Vital Signs Date Time Temp Pulse Resp B/P B/P Pulse O2 O2 Flow FiO2 Mean Ox Delivery Rate 09/11 1231 134 95/69 09/11 1200 97 Nasal 2.0L Cannula 09/11 1022 Nasal 2.0L Cannula 09/11 0800 97.0 128 22 92/60 98 Nasal 2.0L Cannula 09/11 0800 98 Nasal 2.0L Cannula 09/11 0632 142 80/68 09/11 0527 98.1 151 22 80/00 93 Room Air Room Air 09/11 0436 152 09/11 0420 152 16 112/69 94 Room Air 09/11 0358 154 09/11 0224 142 103/57 09/11 0136 158 09/10 2309 142 16 115/54 97 Room Air 09/10 2303 162 16 103/72 09/10 2150 157 18 133/82 09/10 2148 157 18 133/82 96 Room Air 09/10 2124 178 18 101/77 97 Room Air 09/11 2055 97 Room Air 09/10 2044 159 16 110/73 97 Room Air 09/10 2013 178 18 152/67 09/10 1918 97.2 75 20 110/79 94 Room Air Intake & Output 09/11 1600 09/11 0800 09/11 0000 09/10 1600 09/10 0800 09/10 0000 Intake Total 980 3075 2000 Output Total 400 400 100 Balance 580 2675 1900 Intake, IV 740 3075 2000 Intake, Oral 240 0 Number 1 0 Bowel Movements Output, Urine 400 400 100 Patient 146 lb 141 lb 140 lb Weight Weight Bed scale Bed scale Reported by Patient Measurement Method Physical Exam: General Appearance elderly female, Alert, Oriented X3, Cooperative, No Acute Distress Skin normal HEENT Atraumatic Cardiovascular irregular S1, S2, tachycardic, 2/6 systolic murmur left sternal border Lungs Clear to Auscultation and percussion bilaterally Abdomen Soft, No Tenderness Neurological Normal/nonfocal Extremities b/l non pitting lower extremity edema Labs/Simone Results: Laboratory Tests 09/11 09/11 09/11 UNK 0800 0645 Chemistry Sodium (137 - 145 mmol/L) Cancelled 137 Potassium (3.5 - 5.1 mmol/L) Cancelled 4.0 Chloride (98 - 107 mmol/L) Cancelled 107 Carbon Dioxide (22 - 30 mmol/L) Cancelled 19 L Anion Gap (5 - 16) Cancelled 12 BUN (7 - 17 mg/dL) Cancelled 25 H Creatinine (0.5 - 1.0 mg/dL) Cancelled 1.0 Estimated GFR (>60 ml/min) 53 L Glucose (65 - 99 mg/dL) Cancelled 108 H Lactic Acid (0.7 - 2.1 mmol/L) 1.5 Calcium (8.4 - 10.2 mg/dL) Cancelled 7.7 L Phosphorus (2.5 - 4.5 mg/dL) Cancelled 3.4 Magnesium (1.6 - 2.3 mg/dL) Cancelled 1.5 L Total Bilirubin (0.2 - 1.3 mg/dL) Cancelled 0.6 AST (14 - 36 U/L) Cancelled 15 ALT (9 - 52 U/L) Cancelled 29 Troponin I (< 0.11 ng/ml) < 0.01 Albumin (3.5 - 5.0 g/dL) Cancelled 2.7 L Free T4 (0.85 - 1.93 ng/dL) 1.94 H Total T3 (0.97 - 1.69 ng/mL) 0.85 L Coagulation PT (9.4 - 12.5 SEC) 100.9 *H INR (0.90 - 1.19) 9.05 *H Hematology CBC w Diff NO MAN DIFF REQ WBC (4.8 - 10.8 /CUMM) 4.4 L RBC (4.20 - 5.40 /CUMM) 4.23 Hgb (12.0 - 16.0 G/DL) 12.3 Hct (37 - 47 %) 37.2 MCV (81.0 - 99.0 FL) 87.9 MCH (27.0 - 31.0 PG) 29.0 MCHC (33.0 - 37.0 G/DL) 33.0 RDW (11.5 - 14.5 %) 16.6 H Plt Count (130 - 400 /CUMM) 85 L MPV (7.4 - 10.4 FL) 11.8 H Gran % (42.2 - 75.2 %) 77.7 H Lymphocytes % (20.5 - 51.1 %) 16.4 L Monocytes % (1.7 - 9.3 %) 5.4 Eosinophils % (0 - 5 %) 0.2 Basophils % (0.0 - 2.0 %) 0.3 Absolute Granulocytes (1.4 - 6.5 /CUMM) 3.5 Absolute Lymphocytes (1.2 - 3.4 /CUMM) 0.7 L Absolute Monocytes (0.10 - 0.60 /CUMM) 0.2 Absolute Eosinophils (0.0 - 0.7 /CUMM) 0 Absolute Basophils (0.0 - 0.2 /CUMM) 0 09/11 09/10 09/10 0120 0202 1368 Chemistry Troponin I (< 0.11 ng/ml) < 0.01 TSH Cancelled Urines Urine Color (YEL,AMB,STR) YEL Urine Clarity (CLEAR) CLDY H Urine pH (5.0 - 8.0) 6.0 Ur Specific [place] (1.001 - 1.035) >= 1.030 Urine Protein (NEG,<30 MG/DL) 100 H Urine Ketones (NEG) TRACE H Urine Nitrite (NEG) POS H Urine Bilirubin (NEG) NEG Urine Urobilinogen (0.1 - 1.0 EU/dl) 1.0 Ur Leukocyte Esterase (NEG) MOD H Ur Microscopic SEDIMENT EXAMINED Urine RBC (0 - 5 /HPF) 15-25 H Urine WBC (0 - 2 /HPF) PACKD H Ur Epithelial Cells (NONE,FEW) MOD H Urine Bacteria (NEG/NONE) PACKD H Urine Hemoglobin (NEG) LARGE H Urine Glucose (N MG/DL) NEG 09/11 1955 Chemistry Sodium (137 - 145 mmol/L) 135 L Potassium (3.5 - 5.1 mmol/L) 4.1 Chloride (98 - 107 mmol/L) 98 Carbon Dioxide (22 - 30 mmol/L) 21 L Anion Gap (5 - 16) 15 BUN (7 - 17 mg/dL) 31 H Creatinine (0.5 - 1.0 mg/dL) 1.3 H Estimated GFR (>60 ml/min) 39 L BUN/Creatinine Ratio (7 - 25 %) 23.8 Glucose (65 - 99 mg/dL) 109 H Calcium (8.4 - 10.2 mg/dL) 9.6 Total Bilirubin (0.2 - 1.3 mg/dL) 1.0 Direct Bilirubin (< 0.4 mg/dL) 0.7 H AST (14 - 36 U/L) 19 ALT (9 - 52 U/L) 25 Alkaline Phosphatase (<127 U/L) 59 Troponin I (< 0.11 ng/ml) < 0.01 Total Protein (6.3 - 8.2 g/dL) 7.1 Albumin (3.5 - 5.0 g/dL) 3.8 Amylase (30 - 110 U/L) 56 Lipase (23 - 300 U/L) 214 TSH (0.270 - 4.200 uIU/mL) 2.010 Coagulation PT (9.4 - 12.5 SEC) 100.3 *H INR (0.90 - 1.19) 9.00 *H APTT (25 - 37 SEC) 46 H D-Dimer High Sensitivty (0 - 243 ng/ml) < 200 Hematology CBC w Diff NO MAN DIFF REQ WBC (4.8 - 10.8 /CUMM) 5.4 RBC (4.20 - 5.40 /CUMM) 4.78 Hgb (12.0 - 16.0 G/DL) 13.8 Hct (37 - 47 %) 41.8 MCV (81.0 - 99.0 FL) 87.5 MCH (27.0 - 31.0 PG) 28.9 MCHC (33.0 - 37.0 G/DL) 33.0 RDW (11.5 - 14.5 %) 16.9 H Plt Count (130 - 400 /CUMM) 101 L MPV (7.4 - 10.4 FL) 11.5 H Gran % (42.2 - 75.2 %) 71.3 Lymphocytes % (20.5 - 51.1 %) 19.2 L Monocytes % (1.7 - 9.3 %) 8.7 Eosinophils % (0 - 5 %) 0.3 Basophils % (0.0 - 2.0 %) 0.5 Absolute Granulocytes (1.4 - 6.5 /CUMM) 3.8 Absolute Lymphocytes (1.2 - 3.4 /CUMM) 1.0 L Absolute Monocytes (0.10 - 0.60 /CUMM) 0.5 Absolute Eosinophils (0.0 - 0.7 /CUMM) 0 Absolute Basophils (0.0 - 0.2 /CUMM) 0 Assessment/Plan Assessment/Plan Assessment: 1. Atrial fibrillation with elevated ventricular rate 2. Urinary tract infection 3. Acute renal insufficiency 4. From cytopenia 5. Supratherapeutic INR 6. Borderline hypotension 7. Hypocalcemia 8. Hypomagnesemia Recommendations: -Continue current treatment as per the ICU/medical team. -This morning, the patient was given her metoprolol 200 mg and Cardizem CD in spite of her borderline blood pressure. At this time, her heart rate, in atrial fibrillation, remains elevated at 120-1 25/m. -Give digoxin 0.25 mg IV now. If heart rate remains elevated, another 0.125 mg of IV digoxin can be given x 2, by 4-6 hours subsequently to complete loading dose and reassess in AM. -Monitor blood pressure closely -Replete magnesium as necessary -Warfarin on hold pending therapeutic INR -Echo cardiac exam pending -Further plans after the echocardiogram is reviewed. Consult Acknowledgment - Thank you for your consult request.
--- NOTE | 2017-09-11 20:22 | ECHOCARDIOGRAM REPORT ---
JESSIE LEON Age: 82 : 1935 Gender: F Exam Date: 09/11/2017 15:15 Exam Location: [facility] Ht (in): 64 Wt (lb): 140 BSA: 1.70 BP: 92 / 60 Ordering Physician: Kari Mcduffie MD Referring Physician: Kari Mcduffie MD Technologist: Salomon Branham [facility] Room Number: 109-1 Indications: Atrial fibrillation Rhythm: Atrial fibrillation Technical Quality: fair, Technically difficult study FINDINGS Left Ventricle Normal size left ventricle. Left ventricular wall thickness increased. Normal left ventricular ejection fraction estimated at 55-60%. Right Ventricle Right ventricle at upper limits of normal. Right Atrium Moderate to severe right atrial dilatation. Left Atrium Severe left atrial dilatation. Mitral Valve Mitral valve thickened. Mitral annular calcification. Moderate-to- severe mitral regurgitation. Aortic Valve Trileaflet aortic valve. Diffuse thickening (sclerosis) of the aortic valve cusps without reduced excursion. No aortic stenosis. No aortic regurgitation. Tricuspid Valve Tricuspid valve not well visualized, grossly normal. Moderate tricuspid regurgitation. Right ventricular systolic pressure estimated to be elevated at 45 mmHg. Pulmonic Valve Pulmonic valve not well visualized, grossly normal. Pericardium No pericardial effusion. Great Vessels Aortic root and proximal ascending aorta not well visualized, grossly normal. CONCLUSIONS 1. Moderate aortic sclerosis is present with no valvular stenosis or insufficiency. 2. Mitral leaflet thickening is present with anular calcification and moderate to severe mitral insufficiency with severe left atrial enlargement. 3. THere is no pericardial fluid present. 4. The left ventricular chamber size is normal with mild LVH and an ejection fraction of at least 55%. 5. Moderate tricuspid insufficiency is present with moderate to severe right atrial enlargment and an estimated RV systolic pressure of at least 44 mmHg. 6. A followup study would be useful when the patient's heart rate is better controlled. Mohinder Laguerre M.D. (Electronically Signed) Final Date: 11 September 2017 20:21 MEASUREMENTS (Male / Female) Normal Values 2D ECHO LV Diastolic Diameter PLAX 4.0 cm 4.2 - 5.9 / 3.9 - 5.3 cm LV Systolic Diameter PLAX 3.5 cm 2.1 - 4.0 cm LV Fractional Shortening PLAX 12.5 % 25 - 46 % LV Ejection Fraction 2D Teich 27.3 % IVS Diastolic Thickness 1.3 cm LVPW Diastolic Thickness 1.2 cm LV Relative Wall Thickness 0.6 LVOT Diameter 2.1 cm Aortic Root Diameter 3.0 cm LA Systolic Diameter LX 4.5 cm 3.0 - 4.0 / 2.7 - 3.8 cm LV Ejection Fraction MOD BP 58.1 % >= 55 % LV Cardiac Index MOD BP 2749.7 cm/minm LV Diastolic Length 4C 5.8 cm 6.9 - 10.3 cm LV Diastolic Area 4C 21.5 cm LV Diastolic Volume MOD 4C 65.0 cm LV Ejection Fraction MOD 4C 52.3 % LV Stroke Volume MOD 4C 34.0 cm LV Cardiac Index MOD 4C 2596.9 cm/minm LV Systolic Length 4C 5.8 cm LV Systolic Area 4C 14.6 cm LV Systolic Volume MOD 4C 31.0 cm LV Ejection Fraction MOD 2C 61.4 % LV Cardiac Index MOD 2C 2673.3 cm/minm LV Diastolic Volume 4C AL 67.7 cm 85 - 139 / 69 - 109 cm LV Systolic Volume 4C AL 31.4 cm LV Ejection Fraction 4C AL 53.6 % LV Stroke Volume 4C AL 36.3 cm LV Cardiac Index 4C AL 2775.8 cm/minm LV Ejection Fraction 2C AL 62.6 % LV Cardiac Index 2C AL 2744.6 cm/minm LA Volume 149.0 cm 18 - 58 / 22 - 52 cm DOPPLER AV Peak Velocity 137.0 cm/s AV Peak Gradient 7.5 mmHg LVOT Peak Velocity 82.4 cm/s LVOT Peak Gradient 2.7 mmHg AV Area Cont Eq pk 2.1 cm TR Peak Velocity 259.0 cm/s TR Peak Gradient 26.8 mmHg
[2017-09-12] VITALS: BP 110/70
[2017-09-12 04:59] LABS: ABSOLUTE BASOPHIL COUNT 0 /CUMM (0.0-0.2); ABSOLUTE EOSINOPHIL COUNT 0.1 /CUMM (0.0-0.7); ABSOLUTE GRANULOCYTE CT 4.2 /CUMM (1.4-6.5); ABSOLUTE LYMPH COUNT 0.7 /CUMM (1.2-3.4); ABSOLUTE MONOCYTE COUNT 0.4 /CUMM (0.10-0.60); BASOPHIL % 0.4 % (0.0-2.0); EOSINOPHIL % 1.3 % (0-5); GRANULOCYTE % 77.8 % (42.2-75.2); MEAN CORPUSCULAR HGB 29.2 PG (27.0-31.0); MEAN CORPUSCULAR HGB CONC 32.7 G/DL (33.0-37.0); MEAN CORPUSCULAR VOLUME 89.3 FL (81.0-99.0); MEAN PLATELET VOLUME 11.4 FL (7.4-10.4); PLATELET COUNT 81 /CUMM (130-400); RBC DISTRIBUTION WIDTH 16.6 % (11.5-14.5); RED BLOOD CELL CT 4.25 /CUMM (4.20-5.40); WHITE BLOOD CELL COUNT 5.4 /CUMM (4.8-10.8)
--- NOTE | 2017-09-12 07:11 | PN- Resident CRCU ---
Subjective HPI/CRCU Issues: Atrial Fibrillation with RVR Supratherapeutic INR UTI Thrombocytopenia 24 Hour Events: Patient is alert and oriented 2(she knows she is in the hospital but does not know which hospital), states there were some strange people in her room last night who were talking to her. Denies any chest pain, palpitations, shortness of breath or any overnight events. Objective Vital Signs & I&O Last 8 Hrs of Vitals and I&O: Intake & Output 09/12 1600 Intake Total Output Total Balance Patient 145 lb Weight Exam General Appearance: no apparent distress, alert, awake, comfortable Head: atraumatic, normal appearance Respiratory: normal breath sounds, chest non-tender, lungs clear Cardiovascular: irregularly irregular Gastrointestinal: normal bowel sounds, soft, non-tender Extremities: normal inspection, no edema Cranial Nerves: normal hearing, normal speech, PERRL Current Medications: Current Medications Sig/Willy Start time Last Medication Dose Route Stop Time Status Admin Amiodarone HCl/ 360 MG Q12H 09/12 1030 AC Dextrose IV N/A 1 UNIT Atorvastatin Calcium 40 MG 1700 09/11 1700 AC 09/11 PO 1732 Ceftriaxone Sodium 1,000 MG DAILY 09/11 1151 AC 09/12 IV 09/13 1200 0935 Digoxin 0.25 MG 1700 09/12 1700 CAN PO Digoxin 0.125 MG ONCE ONE 09/12 0015 DC 09/12 IV 09/12 0016 0047 Digoxin 0.125 MG ONCE ONE 09/11 1915 DC 09/11 IV 09/11 1916 1919 Digoxin 0.25 MG ONCE ONE 09/11 1230 DC 09/11 IV 09/11 1231 1231 Diltiazem HCl 30 MG Q6 09/12 1200 AC PO Diltiazem HCl 125 MG Q24H 09/12 0815 DC Sodium Chloride 100 ML IV Diltiazem HCl 240 MG Q24 09/11 0230 DC 09/11 PO 0224 Magnesium Sulfate 1 GM Q2H 09/11 1230 DC 09/11 Dextrose/Water 100 ML IV 09/11 1629 1340 Magnesium Sulfate 1 GM Q2H 09/11 1145 DC Dextrose/Water 100 ML IV Metoprolol Succinate 200 MG DAILY 09/11 0430 DC 09/11 PO 0436 Metoprolol Tartrate 100 MG BID 09/12 0900 AC 09/12 PO 0937 Phytonadione 2.5 MG ONCE ONE 09/11 1230 DC 09/11 PO 09/11 1231 1504 Sodium Chloride 1,000 ML Q13H 09/11 0130 AC 09/12 IV 0552 Impression/Plan Impression/Problem List Impression: Mr. Ness is an sure year-old lady with past medical history significant for atrial fibrillation on Coumadin and [place] 20 years ago was brought in by her family because of the concerns of decreased by mouth intake, feeling weak and confusion and was found to be in atrial fibrillation with RVR on presentation. In the ER patient was found to have a heart rate in 160s, INR of 9, creatinine 1.3 and platelet count of 101. UA dirty with positive nitrates, esterase and packed WBCs. Problem list 1. Atrial fibrillation with RVR 2. Supratherapeutic INR 3. Urinary tract infection 4. MILI 5. Thrombocytopenia * Continue monitoring in ICU * At the time of admission patient was given 1 dose of IV Cardizem 10 mg and 30 mg of by mouth Cardizem and was started on IV Cardizem drip. She also received IV Lopressor pushes, total of 20 mg after which she was hypotensive and the Cardizem drip was stopped. She was given 3.5 L of IV fluids with some improvement in her blood pressure. Cardiology was consulted who recommended giving IV digoxin, recieved digoxin x 2 testerday with heart rate still ranging between 130-150. Cardiology recommended starting the patient on cardizem drip which is unavailable because of national shortage, patient was started on amiodarone drip instead. * We will continue by mouth digoxin 0.25 but will hold today given digoxin level of 2.5. We'll repeat digoxin level tomorrow. * We'll change metoprolol to 100 mg twice a day(short acting) and Cardizem 30 mg every 6. * Repeat INR this morning is 3.78. We'll continue to hold Coumadin and repeat INR in a.m. * Creatinine improved with IV fluids will continue to monitor. * Continue ceftriaxone for presumed UTI(positive UA in elderly patient with new onset confusion), Day 2. Will stopped tomorrow(total 3 days). * Platelets dropped from 101--> 85--> 81, will continue to monitor. DVT prophylaxis; Patient is DNR/DNI Problem List: 1. Atrial fibrillation with rapid ventricular response Pain Ratin Pain Location: NA Pain Goal: Remain pain free Pain Plan: Pain pathway Tomorrow's Labs & Rationales: CBC(thrombocytopenia) ICU bundle Digoxin level INR Plan DVT/Prophylaxis: mechanical
[2017-09-12 08:00] VITALS: BP 120/70
[2017-09-12 09:21] LABS: PT 41.8 SEC (9.4-12.5)
--- NOTE | 2017-09-12 09:55 | PN- Pulmonary ---
Subjective HPI/Critical Care Issues: Stable Still has sig tachy May have had some delirium last night Anxious Objective Current Medications: Current Medications Sig/Willy Start time Last Medication Dose Route Stop Time Status Admin Atorvastatin Calcium 40 MG 1700 09/11 1700 AC 09/11 PO 1732 Ceftriaxone Sodium 1,000 MG DAILY / 1151 AC 09/12 IV 0935 Ceftriaxone Sodium 1,000 MG DAILY 09/11 1000 DC IV Digoxin 0.25 MG 1700 09/12 1700 AC PO Digoxin 0.125 MG ONCE ONE 09/12 0015 DC 09/12 IV 09/12 0016 0047 Digoxin 0.125 MG ONCE ONE 09/11 1915 DC 09/11 IV 09/11 1916 1919 Digoxin 0.25 MG ONCE ONE 09/11 1230 DC 09/11 IV 09/11 1231 1231 Diltiazem HCl 125 MG Q24H 09/12 0815 UNVr Sodium Chloride 100 ML IV Diltiazem HCl 240 MG Q24 09/11 0230 DC 09/11 PO 0224 Magnesium Sulfate 1 GM Q2H 09/11 1230 DC 09/11 Dextrose/Water 100 ML IV 09/11 1629 1340 Magnesium Sulfate 1 GM Q2H 09/11 1145 DC Dextrose/Water 100 ML IV Metoprolol Succinate 200 MG DAILY 09/11 0430 DC 09/11 PO 0436 Metoprolol Tartrate 100 MG BID 09/12 0900 AC 09/12 PO 0937 Phytonadione 2.5 MG ONCE ONE 09/11 1230 DC 04/ PO 09/11 1231 1504 Sodium Chloride 1,000 ML Q13H 09/11 0130 AC 09/12 IV 0552 Vital Signs & I&O Last 24 Hrs of Vitals and I&O: Vital Signs Date Time Temp Pulse Resp B/P B/P Pulse O2 O2 Flow FiO2 Mean Ox Delivery Rate 09/12 0937 158 106/65 09/12 0800 97.8 145 20 120/70 98 Nasal 2.0L Cannula 09/12 0800 98 Nasal 2.0L Cannula 09/12 0400 97 Nasal 2.0L Cannula 09/12 0047 137 20 117/76 09/12 0000 95 Nasal 2.0L Cannula 09/12 0000 97.2 133 18 110/70 95 Nasal 2.0L Cannula 09/12 1999 94 Nasal 2.0L Cannula 09/11 1919 131 98/52 09/11 1600 97.6 114 20 92/40 97 Nasal 2.0L Cannula 09/11 1600 97 Nasal 2.0L Cannula 09/11 1231 134 95/69 09/11 1200 97 Nasal 2.0L Cannula 09/11 1022 Nasal 2.0L Cannula Intake & Output 09/12 1600 09/12 0800 09/12 0000 Intake Total 900 1040 Output Total 700 550 Balance 200 490 Intake, IV 800 800 Intake, Oral 100 240 Output, Urine 700 550 Patient 145 lb Weight Impression/Plan Impression/Plan Impression/Plan: VINOD eomi TAchy in afib chest mild crackles abd soft no edema Problem list 1. Atrial fibrillation with RVR 2. Supratherapeutic INR better 3. Urinary tract infection 4. MILI 5. Thrombocytopenia 6. Altered Thyroid function tests will repeat Plan Cont dilt drip if available and rate control per cardio Hold further DIG - level high cont betablocker Cont iv abx for now and dc after three doses Will follow closely Pt needs icu monitoring
--- NOTE | 2017-09-12 11:48 | PN- Cardiology ---
Subjective Subjective: The patient remains in atrial fibrillation with rapid ventricular rate. Blood pressure is borderline. IV diltiazem is unfortunately unavailable, and the patient was changed to long-acting oral diltiazem. No chest pain. No palpitations. No shortness of breath. The patient had mild confusion overnight. Objective Vital Signs and I&Os Vital Signs Date Time Temp Pulse Resp B/P B/P Pulse O2 O2 Flow FiO2 Mean Ox Delivery Rate 09/12 1059 156 97/90 09/12 0937 158 106/65 09/12 0800 97.8 145 20 120/70 98 Nasal 2.0L Cannula 09/12 0800 98 Nasal 2.0L Cannula 09/12 0400 97 Nasal 2.0L Cannula 09/12 0047 137 20 117/76 09/12 0000 95 Nasal 2.0L Cannula 09/12 0000 97.2 133 18 110/70 95 Nasal 2.0L Cannula 09/11 2000 94 Nasal 2.0L Cannula 09/11 1919 131 98/52 09/11 1600 97.6 114 20 92/40 97 Nasal 2.0L Cannula 09/11 1600 97 Nasal 2.0L Cannula 09/11 1231 134 95/69 09/11 1200 97 Nasal 2.0L Cannula Intake & Output 09/12 1600 09/12 0800 09/12 0000 09/11 1600 09/11 0800 09/11 0000 Intake Total 900 2801 716 0029 2000 Output Total 700 550 400 400 100 Balance 200 216 534 1693 1900 Intake, IV 800 057 713 1495 2000 Intake, Oral 100 240 240 0 Number 1 0 Bowel Movements Output, Urine 700 550 400 400 100 Patient 145 lb 146 lb 141 lb 140 lb Weight Weight Bed scale Bed scale Reported by Patient Measurement Method Physical Exam: Gen: NAD HEENT: normal Lungs: clear to auscultation, normal resp. effort Heart: Irregularly irregular, S1, S2, no murmurs Abdomen: Soft, nontender, no masses Extremities: No clubbing, cyanosis, or edema. Neuro: Alert and oriented x 3, cranial nerves intact Current Medications: Current Medications Sig/Willy Start time Last Medication Dose Route Stop Time Status Admin Amiodarone HCl/ 360 MG Q12H 09/12 1030 AC 09/12 Dextrose IV 1059 N/A 1 UNIT Atorvastatin Calcium 40 MG 1700 09/11 1700 AC 09/11 PO 1732 Ceftriaxone Sodium 1,000 MG DAILY 09/11 1151 AC 09/12 IV 09/13 1200 0935 Digoxin 0.25 MG 1700 09/12 1700 CAN PO Digoxin 0.125 MG ONCE ONE 09/12 0015 DC 09/12 IV 09/12 0016 0047 Digoxin 0.125 MG ONCE ONE 09/11 1915 DC 09/11 IV 09/11 1916 1919 Digoxin 0.25 MG ONCE ONE 09/11 1230 DC 09/11 IV 09/11 1231 1231 Diltiazem HCl 30 MG Q6 09/12 1200 AC PO Diltiazem HCl 125 MG Q24H 09/12 0815 DC Sodium Chloride 100 ML IV Diltiazem HCl 240 MG Q24 09/11 0230 DC 09/11 PO 0224 Magnesium Sulfate 1 GM Q2H 09/11 1230 DC 09/11 Dextrose/Water 100 ML IV 09/11 1629 1340 Magnesium Sulfate 1 GM Q2H 09/11 1145 DC Dextrose/Water 100 ML IV Metoprolol Succinate 200 MG DAILY 09/11 0430 DC 09/11 PO 0436 Metoprolol Tartrate 100 MG BID 09/12 0900 AC 09/12 PO 0937 Phytonadione 2.5 MG ONCE ONE 09/11 1230 DC 09/11 PO 09/11 1231 1504 Sodium Chloride 1,000 ML Q13H 09/11 0130 AC 09/12 IV 0552 Results Last 48 Hrs of Labs/Mics: Laboratory Tests 09/12/17 0830: PT 41.8 H, INR 3.78 H, Digoxin 2.5 H 09/12/17 0415: Anion Gap 9, Estimated GFR > 60, Glucose 79, Calcium 8.4, Phosphorus 2.8, Magnesium 1.9, Total Bilirubin 0.9, AST 16, ALT 22, Albumin 2.6 L, Free T4 1.55 , CBC w Diff NO MAN DIFF REQ, RBC 4.25, MCV 89.3, MCH 29.2, MCHC 32.7 L, RDW 16.6 H, MPV 11.4 H, Gran % 77.8 H, Lymphocytes % 12.2 L, Monocytes % 8.3, Eosinophils % 1.3, Basophils % 0.4, Absolute Granulocytes 4.2, Absolute Lymphocytes 0.7 L, Absolute Monocytes 0.4, Absolute Eosinophils 0.1, Absolute Basophils 0 09/11/17 1000: Sodium Cancelled, Potassium Cancelled, Chloride Cancelled, Carbon Dioxide Cancelled, Anion Gap Cancelled, BUN Cancelled, Creatinine Cancelled, Glucose Cancelled, Calcium Cancelled, Phosphorus Cancelled, Magnesium Cancelled, Total Bilirubin Cancelled, AST Cancelled, ALT Cancelled, Albumin Cancelled 09/11/17 0800: PT 100.9 *H, INR 9.05 *H 09/11/17 0645: Anion Gap 12, Estimated GFR 53 L, Glucose 108 H, Lactic Acid 1.5, Calcium 7.7 L, Phosphorus 3.4, Magnesium 1.5 L, Total Bilirubin 0.6, AST 15, ALT 29, Troponin I < 0.01, Albumin 2.7 L, Free T4 1.94 H, Total T3 0.85 L, CBC w Diff NO MAN DIFF REQ, RBC 4.23, MCV 87.9, MCH 29.0, MCHC 33.0, RDW 16.6 H, MPV 11.8 H, Gran % 77.7 H, Lymphocytes % 16.4 L, Monocytes % 5.4, Eosinophils % 0.2, Basophils % 0.3, Absolute Granulocytes 3.5, Absolute Lymphocytes 0.7 L, Absolute Monocytes 0.2, Absolute Eosinophils 0, Absolute Basophils 0 09/11/17 0120: Troponin I < 0.01 09/10/17 2332: TSH Cancelled 09/10/17 2258: Urine Color YEL, Urine Clarity CLDY H, Urine pH 6.0, Ur Specific [place] >= 1.030, Urine Protein 100 H, Urine Ketones TRACE H, Urine Nitrite POS H, Urine Bilirubin NEG, Urine Urobilinogen 1.0, Ur Leukocyte Esterase MOD H, Ur Microscopic SEDIMENT EXAMINED, Urine RBC 15-25 H, Urine WBC PACKD H, Ur Epithelial Cells MOD H, Urine Bacteria PACKD H, Urine Hemoglobin LARGE H, Urine Glucose NEG 09/10/17 1956: Anion Gap 15, Estimated GFR 39 L, BUN/Creatinine Ratio 23.8, Glucose 109 H, Calcium 9.6, Total Bilirubin 1.0, Direct Bilirubin 0.7 H, AST 19, ALT 25, Alkaline Phosphatase 59, Troponin I < 0.01, Total Protein 7.1, Albumin 3.8, Amylase 56, Lipase 214, TSH 2.010, PT 100.3 *H, INR 9.00 *H, APTT 46 H, D-Dimer High Sensitivty < 200, CBC w Diff NO MAN DIFF REQ, RBC 4.78, MCV 87.5, MCH 28.9, MCHC 33.0, RDW 16.9 H, MPV 11.5 H, Gran % 71.3, Lymphocytes % 19.2 L, Monocytes % 8.7, Eosinophils % 0.3, Basophils % 0.5, Absolute Granulocytes 3.8, Absolute Lymphocytes 1.0 L, Absolute Monocytes 0.5, Absolute Eosinophils 0, Absolute Basophils 0 Recent Imaging Studies: Echocardiogram 09/11/17: 1. Moderate aortic sclerosis is present with no valvular stenosis or insufficiency. 2. Mitral leaflet thickening is present with anular calcification and moderate to severe mitral insufficiency with severe left atrial enlargement. 3. THere is no pericardial fluid present. 4. The left ventricular chamber size is normal with mild LVH and an ejection fraction of at least 55%. 5. Moderate tricuspid insufficiency is present with moderate to severe right atrial enlargment and an estimated RV systolic pressure of at least 44 mmHg. 6. A followup study would be useful when the patient's heart rate is better controlled. Assessment/Plan Assessment/Plan Assessment: 1. Atrial fibrillation with elevated ventricular rate 2. Urinary tract infection 3. Acute renal insufficiency 4. Thrombocytopenia 5. Supratherapeutic INR 6. Borderline hypotension 7. Hypocalcemia 8. Hypomagnesemia Plan: * IV diltiazem is unavailable. Verapamil was not able to be mixed as a continuous infusion secondary to lack of a protocol. * Change diltiazem to short-acting oral diltiazem 30 mg p.o. every 6 hours. This should be increased as needed to achieve ventricular rate less than 110 maintaining adequate blood pressure * Start amiodarone drip for rate control given the unavailability of any other rate control medications which are on formulary to be given as a continuous infusion * Continue oral metoprolol. * Digoxin level is mildly elevated at 2.5. Would hold digoxin today and recheck level tomorrow * Hold warfarin today, and consider restarting at reduced dose tomorrow. * Start IV heparin once INR is less than 2.0 Continue telemetry? Yes
[2017-09-12] MEDS ORDERED: COUMADIN5 M2 PO (15:45)
[2017-09-12 16:00] VITALS: BP 124/86
[2017-09-13] VITALS: BP 108/74
[2017-09-13 05:52] LABS: ABSOLUTE BASOPHIL COUNT 0 /CUMM (0.0-0.2); ABSOLUTE EOSINOPHIL COUNT 0.1 /CUMM (0.0-0.7); ABSOLUTE GRANULOCYTE CT 3.8 /CUMM (1.4-6.5); ABSOLUTE LYMPH COUNT 0.8 /CUMM (1.2-3.4); ABSOLUTE MONOCYTE COUNT 0.3 /CUMM (0.10-0.60); BASOPHIL % 0.3 % (0.0-2.0); EOSINOPHIL % 1.4 % (0-5); GRANULOCYTE % 75.8 % (42.2-75.2); HEMATOCRIT 40.3 % (37-47); MEAN CORPUSCULAR HGB 28.4 PG (27.0-31.0); MEAN CORPUSCULAR HGB CONC 31.9 G/DL (33.0-37.0); MEAN PLATELET VOLUME 10.6 FL (7.4-10.4); PLATELET COUNT 94 /CUMM (130-400); RBC DISTRIBUTION WIDTH 16.8 % (11.5-14.5); RED BLOOD CELL CT 4.53 /CUMM (4.20-5.40); WHITE BLOOD CELL COUNT 5.1 /CUMM (4.8-10.8)
[2017-09-13 06:00] LABS: PT 25.5 SEC (9.4-12.5)
--- NOTE | 2017-09-13 08:34 | PN- Resident CRCU ---
Subjective HPI/CRCU Issues: Atrial Fibrillation with RVR Supratherapeutic INR UTI Thrombocytopenia 24 Hour Events: Patient remains tachycardic between 130-150. Denies any chest pain, palpitations , lightheadedness/dizziness or SOB. Reports decreased appetite. Objective Vital Signs & I&O Last 8 Hrs of Vitals and I&O: Intake & Output 09/13 1600 Intake Total 1274 Output Total 300 Balance 974 Intake, IV 974 Intake, Oral 300 Number 0 Bowel Movements Output, Urine 300 Exam General Appearance: no apparent distress, alert, awake, comfortable Head: atraumatic, normal appearance Respiratory: normal breath sounds, chest non-tender, lungs clear Cardiovascular: irregularly irregular Gastrointestinal: normal bowel sounds, soft, non-tender Extremities: normal inspection, no edema Cranial Nerves: normal hearing, normal speech, PERRL Current Medications: Current Medications Sig/Willy Start time Last Medication Dose Route Stop Time Status Admin Amiodarone HCl/ 360 MG Q12H 09/12 1030 AC 09/13 Dextrose IV 0151 N/A 1 UNIT Atorvastatin Calcium 40 MG 1700 09/11 1700 AC 09/12 PO 1708 Ceftriaxone Sodium 1,000 MG DAILY 09/11 1151 DC 09/13 IV 09/13 1200 0920 Diltiazem HCl 60 MG Q6 09/12 1800 AC 09/13 PO 1248 Diltiazem HCl 30 MG Q6 09/12 1200 DC 09/12 PO 1207 Metoprolol Tartrate 100 MG BID 09/12 0900 AC 09/13 PO 0920 Sodium Chloride 1,000 ML Q13H 09/11 0130 DC 09/13 IV 0146 Impression/Plan Impression/Problem List Impression: Mr. Ness is an sure year-old lady with past medical history significant for atrial fibrillation on Coumadin and [place] 20 years ago was brought in by her family because of the concerns of decreased by mouth intake, feeling weak and confusion and was found to be in atrial fibrillation with RVR on presentation. In the ER patient was found to have a heart rate in 160s, INR of 9, creatinine 1.3 and platelet count of 101. UA dirty with positive nitrates, esterase and packed WBCs. Problem list 1. Atrial fibrillation with RVR 2. Supratherapeutic INR 3. Urinary tract infection - received ceftriaxone x 3 days. 4. MILI 5. Thrombocytopenia * Continue monitoring in ICU * At the time of admission patient was given 1 dose of IV Cardizem 10 mg and 30 mg of by mouth Cardizem and was started on IV Cardizem drip. She also received IV Lopressor pushes, total of 20 mg after which she was hypotensive and the Cardizem drip was stopped. She was given 3.5 L of IV fluids with some improvement in her blood pressure. Cardiology was consulted who recommended giving IV digoxin, recieved digoxin x 2 testerday with heart rate still ranging between 130-150. Further recommendations were to start the patient on cardizem drip which as unavailable because of national shortage and patient was started on amiodarone drip instead. Will continue amiodarone drip. * Digoxin level trended up from 2.5-2.9, We will continue to hold digoxin. Repeat levels in the morning. * Continue metoprolol to 100 mg twice a day(short acting). Will increase cardizem from 60 mg to 90mg every 6 hours. * Repeat INR this morning is 2.32. We'll continue to hold Coumadin and repeat INR in a.m. start IV heparin drip once INR less than 2. * Creatinine improved with IV fluids will continue to monitor. * Patient received ceftriaxone x 3 days for UTI(positive UA in elderly patient with new onset confusion). Will monitor off antibiotics. * Platelets count improved from 81 to 94, will continue to monitor. DVT prophylaxis; Patient is DNR/DNI Problem List: 1. Atrial fibrillation with rapid ventricular response Pain Ratin Pain Location: NA Pain Goal: Remain pain free Pain Plan: NA Tomorrow's Labs & Rationales: cbc icu bundle TSH, Free T4 INR Plan DVT/Prophylaxis: mechanical
--- NOTE | 2017-09-13 10:47 | PN- CRCU ---
Subjective HPI/Critical Care Issues: Doing better Still in afib ON amiodrip now better Review of symptoms otherwise unremarkable SIGNIFICANT DATA blood work reviewed BUN/creatinine stable platelets improving INR 2.3 to cultures grew Escherichia coli in the urine which was a sensitive organism Objective Current Medications: Current Medications Sig/Willy Start time Last Medication Dose Route Stop Time Status Admin Amiodarone HCl/ 360 MG Q12H 09/12 1030 AC 09/13 Dextrose IV 0151 N/A 1 UNIT Atorvastatin Calcium 40 MG 1700 09/11 1700 AC 09/12 PO 1708 Ceftriaxone Sodium 1,000 MG DAILY 09/11 1151 AC 09/13 IV 09/13 1200 0920 Diltiazem HCl 60 MG Q6 09/12 1800 AC 09/13 PO 0603 Diltiazem HCl 30 MG Q6 09/12 1200 DC 09/12 PO 1207 Metoprolol Tartrate 100 MG BID 09/12 0900 AC 09/13 PO 0920 Sodium Chloride 1,000 ML Q13H 09/11 0130 AC 09/13 IV 0146 Vital Signs & I&O Last 24 Hrs of Vitals and I&O: Vital Signs Date Time Temp Pulse Resp B/P B/P Pulse O2 O2 Flow FiO2 Mean Ox Delivery Rate 09/13 0603 134 122/74 09/13 0151 124 90/48 09/13 0000 98.0 122 18 108/74 93 Room Air 09/12 2337 133 108/74 09/12 2105 122 132/99 09/12 1708 121 108/64 09/12 1708 121 108/64 09/12 1600 98.0 111 24 124/86 92 Room Air 09/12 1600 92 Room Air 09/12 1207 121 94/60 09/12 1200 94 Room Air 09/12 1059 156 97/90 Intake & Output 09/13 1600 09/13 0800 09/13 0000 Intake Total 982 973 Output Total 200 250 Balance 782 723 Intake, IV 922 913 Intake, Oral 60 60 Output, Urine 200 250 Laboratory Tests 09/13 09/12 0540 0830 Chemistry Sodium (137 - 145 mmol/L) 139 Potassium (3.5 - 5.1 mmol/L) 3.7 Chloride (98 - 107 mmol/L) 108 H Carbon Dioxide (22 - 30 mmol/L) 22 Anion Gap (5 - 16) 10 BUN (7 - 17 mg/dL) 11 Creatinine (0.5 - 1.0 mg/dL) 0.8 Estimated GFR (>60 ml/min) > 60 Glucose (65 - 99 mg/dL) 81 Calcium (8.4 - 10.2 mg/dL) 8.2 L Phosphorus (2.5 - 4.5 mg/dL) 2.9 Magnesium (1.6 - 2.3 mg/dL) 1.6 Total Bilirubin (0.2 - 1.3 mg/dL) 0.9 AST (14 - 36 U/L) 16 ALT (9 - 52 U/L) 23 Albumin (3.5 - 5.0 g/dL) 2.6 L Coagulation PT (9.4 - 12.5 SEC) 25.5 H 41.8 H INR (0.90 - 1.19) 2.32 H 3.78 H Hematology CBC w Diff NO MAN DIFF REQ WBC (4.8 - 10.8 /CUMM) 5.1 RBC (4.20 - 5.40 /CUMM) 4.53 Hgb (12.0 - 16.0 G/DL) 12.9 Hct (37 - 47 %) 40.3 MCV (81.0 - 99.0 FL) 89.0 MCH (27.0 - 31.0 PG) 28.4 MCHC (33.0 - 37.0 G/DL) 31.9 L RDW (11.5 - 14.5 %) 16.8 H Plt Count (130 - 400 /CUMM) 94 L MPV (7.4 - 10.4 FL) 10.6 H Gran % (42.2 - 75.2 %) 75.8 H Lymphocytes % (20.5 - 51.1 %) 16.2 L Monocytes % (1.7 - 9.3 %) 6.3 Eosinophils % (0 - 5 %) 1.4 Basophils % (0.0 - 2.0 %) 0.3 Absolute Granulocytes (1.4 - 6.5 /CUMM) 3.8 Absolute Lymphocytes (1.2 - 3.4 /CUMM) 0.8 L Absolute Monocytes (0.10 - 0.60 /CUMM) 0.3 Absolute Eosinophils (0.0 - 0.7 /CUMM) 0.1 Absolute Basophils (0.0 - 0.2 /CUMM) 0 Toxicology Digoxin (0.8 - 2.0 ng/mL) 2.9 *H 2.5 H 09/12 0415 Chemistry Sodium (137 - 145 mmol/L) 140 Potassium (3.5 - 5.1 mmol/L) 3.9 Chloride (98 - 107 mmol/L) 108 H Carbon Dioxide (22 - 30 mmol/L) 23 Anion Gap (5 - 16) 9 BUN (7 - 17 mg/dL) 17 Creatinine (0.5 - 1.0 mg/dL) 0.8 Estimated GFR (>60 ml/min) > 60 Glucose (65 - 99 mg/dL) 79 Calcium (8.4 - 10.2 mg/dL) 8.4 Phosphorus (2.5 - 4.5 mg/dL) 2.8 Magnesium (1.6 - 2.3 mg/dL) 1.9 Total Bilirubin (0.2 - 1.3 mg/dL) 0.9 AST (14 - 36 U/L) 16 ALT (9 - 52 U/L) 22 Albumin (3.5 - 5.0 g/dL) 2.6 L Free T4 (0.85 - 1.93 ng/dL) 1.55 Hematology CBC w Diff NO MAN DIFF REQ WBC (4.8 - 10.8 /CUMM) 5.4 RBC (4.20 - 5.40 /CUMM) 4.25 Hgb (12.0 - 16.0 G/DL) 12.4 Hct (37 - 47 %) 38.0 MCV (81.0 - 99.0 FL) 89.3 MCH (27.0 - 31.0 PG) 29.2 MCHC (33.0 - 37.0 G/DL) 32.7 L RDW (11.5 - 14.5 %) 16.6 H Plt Count (130 - 400 /CUMM) 81 L MPV (7.4 - 10.4 FL) 11.4 H Gran % (42.2 - 75.2 %) 77.8 H Lymphocytes % (20.5 - 51.1 %) 12.2 L Monocytes % (1.7 - 9.3 %) 8.3 Eosinophils % (0 - 5 %) 1.3 Basophils % (0.0 - 2.0 %) 0.4 Absolute Granulocytes (1.4 - 6.5 /CUMM) 4.2 Absolute Lymphocytes (1.2 - 3.4 /CUMM) 0.7 L Absolute Monocytes (0.10 - 0.60 /CUMM) 0.4 Absolute Eosinophils (0.0 - 0.7 /CUMM) 0.1 Absolute Basophils (0.0 - 0.2 /CUMM) 0 Microbiology Date/Time Procedure - Status Source Growth 09/11 1225 Blood Culture - RES BLOOD 09/11 1220 Blood Culture - RES BLOOD 09/11 0515 Surveillance Culture - COMP UPPER RESP 09/11 514 Surveillance Culture - COMP GI 09/10 2258 Urine Culture - COMP URINE ROUT ESCHERICHIA COLI Impression/Plan Impression/Plan Impression/Plan: VINOD eomi TAchy in afib chest mild crackles abd soft no edema Problem list 1. Atrial fibrillation with RVR 2. Supratherapeutic INR better 3. Urinary tract infection 4. MILI resolved 5. Thrombocytopenia improving 6. Altered Thyroid function tests will repeat Plan Cont rate control meds DC ivf DC ceftriaxone cont betablocker Will follow closely Pt needs icu monitoring continues to be ill tts 40 mins
[2017-09-13 16:00] VITALS: BP 109/90
--- NOTE | 2017-09-13 19:47 | PN- Cardiology ---
Subjective Subjective: No complaints. Remains in atrial fibrillation with a rapid ventricular response. despite the regimen of IV amiodarone, diltiazem (60 mg every 6 hours), beta-yulissa ( metoprolol 100 mg twice daily) with digoxin on hold secondary to elevated level.. Objective Vital Signs and I&Os Vital Signs Date Time Temp Pulse Resp B/P B/P Pulse O2 O2 Flow FiO2 Mean Ox Delivery Rate 09/13 1600 97.6 104 21 109/90 92 Room Air 09/13 0603 134 122/74 09/13 0151 124 90/48 09/13 0000 98.0 122 18 108/74 93 Room Air 09/12 2337 133 108/74 09/12 2105 122 132/99 Intake & Output 09/13 1600 09/13 0800 09/13 0000 09/12 1600 09/12 0000 Intake Total 1274 719 321 8457 900 1040 Output Total 300 200 250 500 700 550 Balance 974 782 723 760 200 490 Intake, IV 974 840 051 1541 800 800 Intake, Oral 300 60 60 240 100 240 Number 0 Bowel Movements Output, Urine 300 200 250 500 700 550 Patient 145 lb Weight Physical Exam: Well-developed, well-nourished elderly female in no acute distress. Vital signs: See above. Neck: No JVD, no bruits. Lungs: Clear to auscultation bilaterally. Abdomen: Soft, nontender, positive bowel sounds. Extremities: No edema. Assessment/Plan Assessment/Plan New onset atrial fibrillation with a rapid ventricular response despite a regimen of IV amiodarone, diltiazem (60 mg every 6 hours), beta-yulissa ( metoprolol 100 mg twice daily) with digoxin on hold secondary to elevated level. Recommendations: * Increase diltiazem from 60 mg every 6 hours to 90 mg every 6 hours for a daily total of 360 mg. * Continue IV amiodarone and beta-yulissa. * Replete magnesium and potassium. * Follow-up digoxin level in a.m. * INR therapeutic at 2.32. * DVT prophylaxis being addressed. Continue telemetry? Not applicable (In ICU.)
[2017-09-14] VITALS: BP 110/84
[2017-09-14 06:21] LABS: ABSOLUTE BASOPHIL COUNT 0 /CUMM (0.0-0.2); ABSOLUTE EOSINOPHIL COUNT 0.1 /CUMM (0.0-0.7); ABSOLUTE GRANULOCYTE CT 3.9 /CUMM (1.4-6.5); ABSOLUTE LYMPH COUNT 0.8 /CUMM (1.2-3.4); ABSOLUTE MONOCYTE COUNT 0.3 /CUMM (0.10-0.60); BASOPHIL % 0.5 % (0.0-2.0); EOSINOPHIL % 1.1 % (0-5); GRANULOCYTE % 76.9 % (42.2-75.2); HEMATOCRIT 43.3 % (37-47); MEAN CORPUSCULAR HGB 28.4 PG (27.0-31.0); MEAN CORPUSCULAR VOLUME 88.6 FL (81.0-99.0); MEAN PLATELET VOLUME 11.1 FL (7.4-10.4); PLATELET COUNT 97 /CUMM (130-400); RED BLOOD CELL CT 4.89 /CUMM (4.20-5.40); WHITE BLOOD CELL COUNT 5.1 /CUMM (4.8-10.8)
[2017-09-14 06:27] LABS: PT 20.6 SEC (9.4-12.5)
[2017-09-14 08:00] VITALS: BP 118/70
--- NOTE | 2017-09-14 11:04 | PN- Resident CRCU ---
Subjective HPI/CRCU Issues: -Atrial Fibrillation with RVR -Supratherapeutic INR-resolved -UTI -Thrombocytopenia-improving 24 Hour Events: The patient was seen and examined. She denies having any palpitation, chest pain, shortness of breath. Continues to be in atrial fibrillation with rapid ventricular rate-now improving to 120s, digoxin on hold given supratherapeutic level. At this point she is on amiodarone, diltiazem 90 mg every 6, Lopressor 100 mg twice a day. Blood pressure remain stable. INR: 1.88 Objective Vital Signs & I&O Last 8 Hrs of Vitals and I&O: Vital Signs Date Time Temp Pulse Resp B/P B/P Pulse O2 O2 Flow FiO2 Mean Ox Delivery Rate 09/14 0800 97.6 122 22 118/70 92 Room Air 09/14 0541 130 90/71 09/14 0000 97.5 122 20 110/84 94 Room Air 09/13 2108 140 95/78 09/13 1600 97.6 104 21 109/90 92 Room Air Intake & Output 09/14 1600 09/14 0800 09/14 0000 Intake Total 1134 1084 Output Total 100 Balance 1134 984 Intake, IV 934 934 Intake, Oral 200 150 Output, Urine 100 Exam General Appearance: well developed/nourished, no apparent distress, alert Other Physical Findings: Head: atraumatic, normal appearance Respiratory: normal breath sounds, chest non-tender, lungs clear Cardiovascular: irregularly irregular, tachycardic Gastrointestinal: normal bowel sounds, soft, non-tender Extremities: normal inspection, no edema Cranial Nerves: normal hearing, normal speech, PERRL Current Medications: Current Medications Sig/Willy Start time Last Medication Dose Route Stop Time Status Admin Amiodarone HCl 900 MG Q24H 09/14 2230 AC Dextrose/Water 500 ML IV Amiodarone HCl/ 360 MG Q12H 09/12 1030 AC 09/14 Dextrose IV 09/14 2229 1115 N/A 1 UNIT Atorvastatin Calcium 40 MG 1700 09/11 1700 AC / PO 1717 Diltiazem HCl 90 MG Q6 09/13 2359 AC 09/14 PO 1226 Diltiazem HCl 60 MG Q6 09/12 1800 DC 09/13 PO 1717 Magnesium Sulfate 1 GM Q2H 09/14 0615 DC 09/14 Dextrose/Water 100 ML IV 09/14 1014 0800 Metoprolol Tartrate 100 MG BID 09/12 0900 AC 09/14 PO 1114 Potassium Chloride 40 MEQ ONCE ONE 09/14 0800 DC 09/14 PO 09/14 0801 0800 Potassium Chloride 40 MEQ ONCE ONE 09/14 0615 CAN PO 09/14 0616 Impression/Plan Impression/Problem List Impression: The patient is an 82-year-old lady with past medical history significant for atrial fibrillation on warfarin, [place] 20 years prior to admission who was brought in by her family because of the concerns of decreased by mouth intake, feeling weak and confusion and was found to be in atrial fibrillation with RVR on presentation. Problem list: -Atrial fibrillation with RVR -Supratherapeutic INR -Thrombocytopeniaimproving -Electrolyte abnormalities -Abnormal thyroid function test -AK Iresolved -UTIresolved Plan: -Continue to monitor in the ICU -Continue amiodarone, beta blockers -Monitor electrolytes and replete accordingly -INR 1.88, will dose warfarin today -Will need a repeat thyroid function testing at some point -Per cardiology, digoxin level is close to therapeutic no need to resume digoxin at this point -Recheck digoxin level -Bowel regimen to avoid constipation -Possible change to by mouth amiodarone from tomorrow -DC Conklin catheter -Out of bed to chair -PT evaluation -DVT prophylaxis at all times -Patient is DNI/DNR Problem List: 1. Renal failure 2. Atrial fibrillation with rapid ventricular response Pain Ratin Tomorrow's Labs & Rationales: CBC to monitor H&H ICU bundles monitor electrolytes INRon warfarin Plan DVT/Prophylaxis: mechanical
--- NOTE | 2017-09-14 11:41 | PN- CRCU ---
Subjective HPI/Critical Care Issues: Remains in atrial fibrillation with a rapid ventricular response. despite the regimen of IV amiodarone, diltiazem (60 mg every 6 hours), beta-yulissa ( metoprolol 100 mg twice daily) with digoxin on hold secondary to elevated level.. More awake Less anxious Objective Current Medications: Current Medications Sig/Willy Start time Last Medication Dose Route Stop Time Status Admin Amiodarone HCl/ 360 MG Q12H 09/12 1030 AC 09/14 Dextrose IV 1115 N/A 1 UNIT Atorvastatin Calcium 40 MG 1700 09/11 1700 AC 09/13 PO 1717 Ceftriaxone Sodium 1,000 MG DAILY 09/11 1151 DC 09/13 IV 09/13 1200 0920 Diltiazem HCl 90 MG Q6 09/13 2359 AC 09/14 PO 0541 Diltiazem HCl 60 MG Q6 09/12 1800 DC 09/13 PO 1717 Magnesium Sulfate 1 GM Q2H 09/14 0615 DC 09/14 Dextrose/Water 100 ML IV 09/14 1014 0800 Metoprolol Tartrate 100 MG BID 09/12 0900 AC 09/14 PO 1114 Potassium Chloride 40 MEQ ONCE ONE 09/14 0800 DC 09/14 PO 09/14 0801 0800 Potassium Chloride 40 MEQ ONCE ONE 09/14 0615 CAN PO 09/14 0616 Sodium Chloride 1,000 ML Q13H 09/11 0130 DC 09/13 IV 0146 Vital Signs & I&O Last 24 Hrs of Vitals and I&O: Vital Signs Date Time Temp Pulse Resp B/P B/P Pulse O2 O2 Flow FiO2 Mean Ox Delivery Rate 09/14 0541 130 90/71 09/14 0000 97.5 122 20 110/84 94 Room Air 09/13 2108 140 95/78 09/13 1600 97.6 104 21 109/90 92 Room Air Intake & Output 09/14 1600 09/14 0800 09/14 0000 Intake Total 1134 1084 Output Total 100 Balance 1134 984 Intake, IV 934 934 Intake, Oral 200 150 Output, Urine 100 Laboratory Tests 09/14 09/13 0550 0540 Chemistry Sodium (137 - 145 mmol/L) 138 139 Potassium (3.5 - 5.1 mmol/L) 3.3 L 3.7 Chloride (98 - 107 mmol/L) 108 H 108 H Carbon Dioxide (22 - 30 mmol/L) 17 L 22 Anion Gap (5 - 16) 13 10 BUN (7 - 17 mg/dL) 11 11 Creatinine (0.5 - 1.0 mg/dL) 0.7 0.8 Estimated GFR (>60 ml/min) > 60 > 60 Glucose (65 - 99 mg/dL) 84 81 Calcium (8.4 - 10.2 mg/dL) 8.2 L 8.2 L Phosphorus (2.5 - 4.5 mg/dL) 2.9 2.9 Magnesium (1.6 - 2.3 mg/dL) 1.5 L 1.6 Total Bilirubin (0.2 - 1.3 mg/dL) 0.8 0.9 AST (14 - 36 U/L) 15 16 ALT (9 - 52 U/L) 28 23 Albumin (3.5 - 5.0 g/dL) 2.6 L 2.6 L TSH (0.270 - 4.200 uIU/mL) 2.510 Free T4 (0.85 - 1.93 ng/dL) 1.67 Coagulation PT (9.4 - 12.5 SEC) 20.6 H 25.5 H INR (0.90 - 1.19) 1.88 H 2.32 H Hematology CBC w Diff NO MAN DIFF REQ NO MAN DIFF REQ WBC (4.8 - 10.8 /CUMM) 5.1 5.1 RBC (4.20 - 5.40 /CUMM) 4.89 4.53 Hgb (12.0 - 16.0 G/DL) 13.9 12.9 Hct (37 - 47 %) 43.3 40.3 MCV (81.0 - 99.0 FL) 88.6 89.0 MCH (27.0 - 31.0 PG) 28.4 28.4 MCHC (33.0 - 37.0 G/DL) 32.0 L 31.9 L RDW (11.5 - 14.5 %) 17.0 H 16.8 H Plt Count (130 - 400 /CUMM) 97 L 94 L MPV (7.4 - 10.4 FL) 11.1 H 10.6 H Gran % (42.2 - 75.2 %) 76.9 H 75.8 H Lymphocytes % (20.5 - 51.1 %) 16.2 L 16.2 L Monocytes % (1.7 - 9.3 %) 5.3 6.3 Eosinophils % (0 - 5 %) 1.1 1.4 Basophils % (0.0 - 2.0 %) 0.5 0.3 Absolute Granulocytes (1.4 - 6.5 /CUMM) 3.9 3.8 Absolute Lymphocytes (1.2 - 3.4 /CUMM) 0.8 L 0.8 L Absolute Monocytes (0.10 - 0.60 /CUMM) 0.3 0.3 Absolute Eosinophils (0.0 - 0.7 /CUMM) 0.1 0.1 Absolute Basophils (0.0 - 0.2 /CUMM) 0 0 Toxicology Digoxin (0.8 - 2.0 ng/mL) 1.6 2.9 *H Microbiology Date/Time Procedure - Status Source Growth 09/11 1225 Blood Culture - RES BLOOD 09/11 1220 Blood Culture - RES BLOOD Impression/Plan Impression/Plan Impression/Plan: VINOD eomi TAchy in afib chest mild crackles abd soft no edema Problem list 1. Atrial fibrillation with RVR 2. Resolved Supratherapeutic INR better 3. Urinary tract infection resolved 4. MILI resolved 5. Thrombocytopenia improving 6. Altered Thyroid function tests will repeat 7. Electrolyte abnormality Plan Cont rate control meds KCl 40 mEq 3 doses Magnesium 400 daily 1 g intravenous magnesium Recheck digoxin level Resume warfarin. 5 mg today Out of bed to chair MiraLAX Senokot and docusate, if no BM patient would require Dulcolax Related to dig level is low might be able to give dig today Out of bed to chair must today PT eval DIAN Conklin cont betablocker, calcium channel yulissa Consider changing to by mouth amiodarone Pt needs icu monitoring continues to be ill tts 40 mins
--- NOTE | 2017-09-14 13:37 | PN- Cardiology ---
Subjective Subjective: No complaints. Remains in atrial fibrillation with ventricular response at present of improved (94 bpm). Objective Vital Signs and I&Os Vital Signs Date Time Temp Pulse Resp B/P B/P Pulse O2 O2 Flow FiO2 Mean Ox Delivery Rate 09/14 0800 97.6 122 22 118/70 92 Room Air 09/14 0541 130 90/71 09/14 0000 97.5 122 20 110/84 94 Room Air 09/13 2108 140 95/78 09/13 1600 97.6 104 21 109/90 92 Room Air Intake & Output 09/14 1600 09/14 0800 09/14 0000 09/13 1600 09/13 0809/13 0000 Intake Total 1134 1084 1274 982 973 Output Total 100 300 200 250 Balance 1134 984 974 782 723 Intake, IV 934 934 974 922 913 Intake, Oral 200 150 300 60 60 Number 0 Bowel Movements Output, Urine 100 300 200 250 Physical Exam: Well-developed, well-nourished elderly female in no acute distress with nasal oxygen in place who is visiting with family members. Vital signs: See above. Neck: No JVD, no bruits. Lungs: Clear to auscultation. Heart: S1, S2 (irregularly, irregular), murmur, gallop, or rub. Abdomen: Soft, nontender, positive bowel sounds. Extremities: No edema. Assessment/Plan Assessment/Plan New onset atrial fibrillation with an improving ventricular response on a regimen of IV amiodarone, diltiazem (90 mg every 6 hours), beta-yulissa ( metoprolol 100 mg twice daily) with digoxin on hold secondary to elevated level. Recommendations: * Continue IV amiodarone, beta-yulissa, and calcium channel antagonist. * Replete magnesium (1.5 mg/ml) and potassium (3.3 mEq/l). * Digoxin level acceptable (1.6 ng/ml). * INR subtherapeutic at 1.88. * DVT prophylaxis. Continue telemetry? Not applicable (In ICU.)
[2017-09-15 05:10] LABS: ABSOLUTE BASOPHIL COUNT 0 /CUMM (0.0-0.2); ABSOLUTE EOSINOPHIL COUNT 0 /CUMM (0.0-0.7); ABSOLUTE LYMPH COUNT 1.1 /CUMM (1.2-3.4); ABSOLUTE MONOCYTE COUNT 0.5 /CUMM (0.10-0.60); BASOPHIL % 0.5 % (0.0-2.0); EOSINOPHIL % 0.7 % (0-5); GRANULOCYTE % 74.3 % (42.2-75.2); HEMATOCRIT 42.6 % (37-47); MEAN CORPUSCULAR HGB 28.8 PG (27.0-31.0); MEAN CORPUSCULAR HGB CONC 33.1 G/DL (33.0-37.0); MEAN CORPUSCULAR VOLUME 87.2 FL (81.0-99.0); MEAN PLATELET VOLUME 11.2 FL (7.4-10.4); PLATELET COUNT 99 /CUMM (130-400); RBC DISTRIBUTION WIDTH 17.7 % (11.5-14.5); RED BLOOD CELL CT 4.88 /CUMM (4.20-5.40); WHITE BLOOD CELL COUNT 6.7 /CUMM (4.8-10.8)
[2017-09-15 05:16] LABS: PT 20.7 SEC (9.4-12.5)
[2017-09-15 08:00] VITALS: BP 92/56
--- NOTE | 2017-09-15 08:07 | PN- Resident CRCU ---
Fredis LORENZO,[facility] 09/15/17 0807: Subjective HPI/CRCU Issues: - Atrial Fibrillation with RVR - Supratherapeutic INR-resolved - UTI, tretaed with Ceftriaxone x 3 days - Thrombocytopenia-improving 24 Hour Events: Patient remains asymptomatic with no chest pain, palpitations or SOB with her heart rate remaining in 130s-140s despite being on multiple heart rate controlling agents. . at bedside, states she has started eating since yesterday, ate a banana for breakfast and had some orange juice. No Overnight events noted. Objective Vital Signs & I&O Last 8 Hrs of Vitals and I&O: Intake & Output 09/15 1600 Intake Total 843.5 Output Total 100 Balance 743.5 Intake, IV 243.5 Intake, Oral 600 Number 2 Bowel Movements Output, Urine 100 Patient 155 lb Weight Weight Bed scale Measurement Method Exam General Appearance: no apparent distress, alert, awake, comfortable Head: atraumatic, normal appearance Respiratory: normal breath sounds, chest non-tender, lungs clear Cardiovascular: irregularly irregular Gastrointestinal: normal bowel sounds, soft, non-tender Extremities: normal inspection, no edema Cranial Nerves: normal hearing, normal speech, PERRL Current Medications: Current Medications Sig/Willy Start time Last Medication Dose Route Stop Time Status Admin Amiodarone HCl 900 MG Q24H 09/14 2230 AC 09/14 Dextrose/Water 500 ML IV 2326 Amiodarone HCl/ 360 MG Q12H 09/12 1030 DC 09/14 Dextrose IV 09/14 2229 1414 N/A 1 UNIT Atorvastatin Calcium 40 MG 1700 09/11 1700 AC 09/14 PO 1531 Diltiazem HCl 90 MG Q6 09/13 2359 AC 09/15 PO 0649 Glycerin 2 SPRAY Q2P PRN 09/14 1915 AC 09/14 PO 2021 Magnesium Oxide 400 MG DAILY 09/14 1356 AC 09/15 PO 0826 Magnesium Sulfate 1 GM ONCE ONE 09/15 0615 09/15 Dextrose/Water 100 ML IV 09/15 1014 0753 Magnesium Sulfate 1 GM Q2H 09/14 0615 DC 09/14 Dextrose/Water 100 ML IV 09/14 1014 0800 Metoprolol Tartrate 100 MG BID 09/12 0900 AC 09/15 PO 0825 Polyethylene Glycol 17 GM DAILY 09/14 1357 AC 09/14 PO 1532 Potassium Chloride 40 MEQ Q2H 09/14 1500 DC 09/14 PO 09/14 1701 1639 Senna/Docusate Sodium 1 TAB BID PRN 09/14 1400 AC 09/14 PO 1531 Warfarin Sodium 5 MG COUMADIN 1700 ONE 09/14 1700 DC 09/14 PO 09/14 1701 1531 Impression/Plan Impression/Problem List Impression: Ms. Banks is an 82 year-old lady with past medical history significant for atrial fibrillation on Coumadin and [place] 20 years ago was brought in by her family because of the concerns of decreased by mouth intake, feeling weak and confusion and was found to be in atrial fibrillation with RVR on presentation. In the ER patient was found to have a heart rate in 160s, INR of 9, creatinine 1.3 and platelet count of 101. UA dirty with positive nitrates, esterase and packed WBCs. Problem list 1. Atrial fibrillation with RVR 2. Supratherapeutic INR - resolved 3. Urinary tract infection - received ceftriaxone x 3 days. 4. MILI - resolved 5. Thrombocytopenia - improving 6. Hypomagnesemia * Continue monitoring in ICU * At the time of admission patient was given 1 dose of IV Cardizem 10 mg and 30 mg of by mouth Cardizem and was started on IV Cardizem drip. She also received IV Lopressor pushes, total of 20 mg after which she was hypotensive and the Cardizem drip was stopped. She was given 3.5 L of IV fluids with some improvement in her blood pressure. Cardiology was consulted who recommended giving IV digoxin, recieved digoxin x 2 testerday with heart rate still ranging between 130-150. Further recommendations were to start the patient on cardizem drip which as unavailable because of national shortage and patient was started on amiodarone drip instead. Will continue amiodarone drip. Heart rate still remains elevated, pt might need ablation. * Digoxin level 1.6 today, resume digoxin 0.125. Repeat levels in the morning. * Increase metoprolol to 100 mg TID and continue cardizem 90mg Q 6. * Repeat INR this morning is 1.89. Give coumadin today and repeat INR in a.m. * Creatinine improved with IV fluids, will continue to monitor. * Patient received ceftriaxone x 3 days for UTI(positive UA in elderly patient with new onset confusion). Will monitor off antibiotics. * Platelet count continue to improve, will continue to monitor. * Continue to monitor magnesium level and replete accordingly. DVT prophylaxis; Alps, patient is on Coumadin for A. fib Patient is DNR/DNI Problem List: 1. Atrial fibrillation with rapid ventricular response Pain Ratin Pain Location: None Pain Goal: Remain pain free Pain Plan: None Tomorrow's Labs & Rationales: CBC(thrombocytopenia) ICU Bundle INR Plan DVT/Prophylaxis: mechanical, pharmacological Moe Orr MD 09/15/17 1308: Attending MD Review Statement Attending Sign Off Attending Cosign Statement: I have: examined this patient, reviewed avalbl EMR data, personally reviewd images, discussd w/resident/PA/EMERGENCY MEDICAL TECHNICIAN/DRIVER, discussed mgmt plan w/mery, discussed mgmt plan w/CM, discussed mgmt plan w/pt, agreed w/resident/PA/EMERGENCY MEDICAL TECHNICIAN/DRIVER, amended to note. Other Findings: IMoe M.D. have examined this patient, reviewed available EMR data, personally reviewed images, discussed with resident/PA/EMERGENCY MEDICAL TECHNICIAN/DRIVER, discussed management plan with housestaff and nursing staff, discussed managment plan all of healthcare providers, discussed management plan with patient and/or family, agreed with resident/PA/EMERGENCY MEDICAL TECHNICIAN/DRIVER. The past history and parts of the chart have been autopopulated. Impression 82 year old woman * a.fib with RVR * uti * mili Plan -f/u cardiology -increase metoprolol -oral digoxin -po cardizem -coumadin dosage - INR goal 2-3 DVT prophylaxis at all times once off amiodarone - dg to telemetry TTS 35 min
--- NOTE | 2017-09-15 11:43 | PN- Cardiology ---
Subjective Subjective: The patient is comfortable. She reports feeling mostly well. She remains in atrial fibrillation with mildly elevated ventricular rate. Hypotension has improved. She remains on amiodarone drip. No chest pain. No syncope. No orthopnea. No nausea or vomiting per Objective Vital Signs and I&Os Vital Signs Date Time Temp Pulse Resp B/P B/P Pulse O2 O2 Flow FiO2 Mean Ox Delivery Rate 09/15 0825 124/82 09/15 0800 97.6 129 27 92/56 93 Room Air 09/15 0800 93 Room Air 09/14 2326 93/58 09/14 202 100/60 Intake & Output 09/15 1600 09/15 0800 09/15 0000 09/14 1600 09/14 0800 09/14 0000 Intake Total 234 6922 483 9091 1084 Output Total 450 450 350 100 Balance -216 595 781 3011 984 Intake, IV 134 624 254 934 934 Intake, Oral 100 810 350 200 150 Number 2 0 Bowel Movements Output, Urine 450 450 350 100 Patient 155 lb Weight Weight Bed scale Measurement Method Physical Exam: Gen: NAD HEENT: normal Lungs: clear to auscultation, normal resp. effort Heart: Irregularly irregular, S1, S2, no murmurs Abdomen: Soft, nontender, no masses Extremities: No clubbing, cyanosis, or edema. Neuro: Alert and oriented x 3, cranial nerves intact Current Medications: Current Medications Sig/Willy Start time Last Medication Dose Route Stop Time Status Admin Amiodarone HCl 900 MG Q24H 09/14 2230 AC 09/14 Dextrose/Water 500 ML IV 2326 Amiodarone HCl/ 360 MG Q12H 09/12 1030 DC 09/14 Dextrose IV 09/14 2229 1414 N/A 1 UNIT Atorvastatin Calcium 40 MG 1700 09/11 1700 AC 09/14 PO 1531 Diltiazem HCl 90 MG Q6 09/13 2359 AC 09/15 PO 0649 Glycerin 2 SPRAY Q2P PRN 09/14 1915 AC 09/14 PO 2021 Magnesium Oxide 400 MG DAILY 09/14 1356 AC 09/15 PO 0826 Magnesium Sulfate 1 GM ONCE ONE 09/15 0615 DC 09/15 Dextrose/Water 100 ML IV 09/15 1014 0753 Metoprolol Tartrate 100 MG BID 09/12 0900 AC 09/15 PO 0825 Polyethylene Glycol 17 GM DAILY 09/14 1357 AC 09/14 PO 1532 Potassium Chloride 40 MEQ Q2H 09/14 1500 DC 09/14 PO 09/14 1701 1639 Senna/Docusate Sodium 1 TAB BID PRN 09/14 1400 AC 09/14 PO 1531 Warfarin Sodium 5 MG COUMADIN 1700 ONE 09/14 1700 DC 09/14 PO 09/14 1701 1531 Results Last 48 Hrs of Labs/Mics: Laboratory Tests 09/15/17 0430: Anion Gap 11, Estimated GFR > 60, Glucose 96, Calcium 8.9, Phosphorus 2.6, Magnesium 1.8, Total Bilirubin 0.9, AST 17, ALT 25, Albumin 3.0 L, PT 20.7 H, INR 1.89 H, CBC w Diff NO MAN DIFF REQ, RBC 4.88, MCV 87.2, MCH 28.8, MCHC 33.1 , RDW 17.7 H, MPV 11.2 H, Gran % 74.3, Lymphocytes % 17.0 L, Monocytes % 7.5, Eosinophils % 0.7, Basophils % 0.5, Absolute Granulocytes 5.0, Absolute Lymphocytes 1.1 L, Absolute Monocytes 0.5, Absolute Eosinophils 0, Absolute Basophils 0 09/14/17 1419: Digoxin 1.6 09/14/17 0550: Anion Gap 13, Estimated GFR > 60, Glucose 84, Calcium 8.2 L, Phosphorus 2.9, Magnesium 1.5 L, Total Bilirubin 0.8, AST 15, ALT 28, Albumin 2.6 L, TSH 2.510 , Free T4 1.67, PT 20.6 H, INR 1.88 H, CBC w Diff NO MAN DIFF REQ, RBC 4.89, MCV 88.6, MCH 28.4, MCHC 32.0 L, RDW 17.0 H, MPV 11.1 H, Gran % 76.9 H, Lymphocytes % 16.2 L, Monocytes % 5.3, Eosinophils % 1.1, Basophils % 0.5, Absolute Granulocytes 3.9, Absolute Lymphocytes 0.8 L, Absolute Monocytes 0.3, Absolute Eosinophils 0.1, Absolute Basophils 0, Digoxin 1.6 Assessment/Plan Assessment/Plan Assessment: 1. Atrial fibrillation with elevated ventricular rate 2. Urinary tract infection 3. Acute renal insufficiency 4. Thrombocytopenia 5. Supratherapeutic INR 6. Borderline hypotension 7. Hypocalcemia 8. Hypomagnesemia Plan: * Increase metoprolol to 100 mg p.o. every 8 hours for rate control * Start oral digoxin 0.125 mg p.o. daily * Continue diltiazem 90 mg p.o. every 6 hours * Dose warfarin for INR 2-3 Continue telemetry? Yes
[2017-09-15 12:00] VITALS: BP 96/76
[2017-09-15 16:00] VITALS: BP 106/90
[2017-09-16] VITALS: BP 100/70
[2017-09-16 05:19] LABS: ABSOLUTE BASOPHIL COUNT 0 /CUMM (0.0-0.2); ABSOLUTE EOSINOPHIL COUNT 0.1 /CUMM (0.0-0.7); ABSOLUTE MONOCYTE COUNT 0.3 /CUMM (0.10-0.60); BASOPHIL % 0.4 % (0.0-2.0); EOSINOPHIL % 1.5 % (0-5); HEMATOCRIT 41.2 % (37-47); MEAN CORPUSCULAR HGB 28.9 PG (27.0-31.0); MEAN CORPUSCULAR HGB CONC 33.2 G/DL (33.0-37.0); MEAN PLATELET VOLUME 11.4 FL (7.4-10.4); PLATELET COUNT 105 /CUMM (130-400); RBC DISTRIBUTION WIDTH 17.7 % (11.5-14.5); RED BLOOD CELL CT 4.74 /CUMM (4.20-5.40); WHITE BLOOD CELL COUNT 5.4 /CUMM (4.8-10.8)
[2017-09-16 05:27] LABS: PT 33.5 SEC (9.4-12.5)
--- NOTE | 2017-09-16 07:47 | PN- Resident CRCU ---
See Addendum Fredis LORENZO,Angelica 09/16/17 0747: Subjective HPI/CRCU Issues: - Atrial Fibrillation with RVR - Supratherapeutic INR-resolved - UTI, tretaed with Ceftriaxone x 3 days - Thrombocytopenia-improving 24 Hour Events: Patient resting comfortably, has no complains. Heart Rate improving, Now in 110s to 120s. BP remians stable. Objective Vital Signs & I&O Last 8 Hrs of Vitals and I&O: Intake & Output 09/16 1600 Intake Total 480 Output Total 150 Balance 330 Intake, Oral 480 Number 1 Bowel Movements Output, Urine 150 Exam General Appearance: no apparent distress, alert, awake, comfortable Head: atraumatic, normal appearance Respiratory: normal breath sounds, chest non-tender, lungs clear Cardiovascular: irregularly irregular Gastrointestinal: normal bowel sounds, soft, non-tender Extremities: normal inspection, no edema Cranial Nerves: normal hearing, normal speech, PERRL Current Medications: Current Medications Sig/Willy Start time Last Medication Dose Route Stop Time Status Admin Amiodarone HCl 900 MG Q24H 09/14 2230 DC 09/15 Dextrose/Water 500 ML IV 2351 Atorvastatin Calcium 40 MG 1700 09/11 1700 AC 09/15 PO 1650 Digoxin 0.125 MG 1700 09/15 1700 AC 09/15 PO 1650 Diltiazem HCl 120 MG Q6 09/15 1800 AC 09/16 PO 0503 Diltiazem HCl 90 MG Q6 09/13 2359 DC 09/15 PO 1206 Glycerin 2 SPRAY Q2P PRN 09/14 1915 AC 09/14 PO 2021 Magnesium Oxide 400 MG DAILY 09/14 1356 AC 09/16 PO 0836 Magnesium Sulfate 1 GM ONCE ONE 09/16 0930 09/16 Dextrose/Water 100 ML IV 09/16 1329 0940 Magnesium Sulfate 1 GM ONCE ONE 09/[address] 09/16 Dextrose/Water 100 ML IV 09/16 1114 0823 Metoprolol Tartrate 200 MG Q12 09/15 2100 AC 09/16 PO 0837 Metoprolol Tartrate 100 MG Q8 09/15 1400 DC 09/15 PO 1445 Polyethylene Glycol 17 GM DAILY 09/14 1357 AC 09/16 PO 0837 Potassium Chloride 20 MEQ ONCE ONE 09/16 0800 DC 09/16 PO 09/16 0801 1005 Senna/Docusate Sodium 1 TAB BID PRN 09/14 1400 AC 09/14 PO 1531 Sodium Chloride 1,000 ML ONCE ONE 09/15 1545 DC 09/15 IV 09/15 2224 1650 Warfarin Sodium 5 MG COUMADIN 1700 ONE 09/15 1700 DC 09/15 PO 09/15 1701 1650 Impression/Plan Impression/Problem List Impression: Ms. Banks is an 82 year-old lady with past medical history significant for atrial fibrillation on Coumadin and [place] 20 years ago was brought in by her family because of the concerns of decreased by mouth intake, feeling weak and confusion and was found to be in atrial fibrillation with RVR on presentation. In the ER patient was found to have a heart rate in 160s, INR of 9, creatinine 1.3 and platelet count of 101. UA dirty with positive nitrates, esterase and packed WBCs. Problem list 1. Atrial fibrillation with RVR 2. Supratherapeutic INR - resolved 3. Urinary tract infection - received ceftriaxone x 3 days. 4. MILI - resolved 5. Thrombocytopenia - improving 6. Hypomagnesemia * At the time of admission patient was given 1 dose of IV Cardizem 10 mg and 30 mg of by mouth Cardizem and was started on IV Cardizem drip. She also received IV Lopressor pushes, total of 20 mg after which she was hypotensive and the Cardizem drip was stopped. She was given 3.5 L of IV fluids with some improvement in her blood pressure. Cardiology was consulted who recommended giving IV digoxin, recieved digoxin x 2 testerday with heart rate still ranging between 130-150. Further recommendations were to start the patient on cardizem drip which as unavailable because of national shortage and patient was started on amiodarone drip instead. Patient heart rate improved, now in low 100s, we'll discontinue amiodarone drip. * Digoxin level 1.0 today, continue digoxin 0.125. Repeat levels in the morning. * Metoprolol increased from 100 mg TID to 200 twice a day and cardizem increased from 90mg to 120 mg Q 6 last night. We'll continue. * Repeat INR this morning is 3.04. Hold coumadin today and repeat INR in a.m. * Creatinine improved with IV fluids, will continue to monitor. * Patient received ceftriaxone x 3 days for UTI(positive UA in elderly patient with new onset confusion). Will monitor off antibiotics. * Platelet count dropped at the time of admission but now continue to improve, will monitor. * Continue to monitor magnesium level and replete accordingly. DVT prophylaxis; Alps, patient is on Coumadin for A. fib Patient is DNR/DNI Patient downgraded to telemetry floor. Problem List: 1. Atrial fibrillation with rapid ventricular response Pain Ratin Pain Location: None Pain Goal: Remain pain free Pain Plan: Pain pathway Tomorrow's Labs & Rationales: CBC (thrombocytopenia) IC bundle(hypomagnesemia, hypoNa) INR Plan DVT/Prophylaxis: mechanical, pharmacological Moe Orr MD 09/16/17 1403: Attending MD Review Statement Attending Sign Off Attending Cosign Statement: I have: examined this patient, reviewed avalbl EMR data, personally reviewd images, discussd w/resident/PA/COOK ROOM SUPERVISOR, discussed mgmt plan w/mery, discussed mgmt plan w/CM, discussed mgmt plan w/pt, agreed w/resident/PA/COOK ROOM SUPERVISOR, amended to note. Other Findings: IMoe M.D. have examined this patient, reviewed available EMR data, personally reviewed images, discussed with resident/PA/COOK ROOM SUPERVISOR, discussed management plan with housestaff and nursing staff, discussed managment plan all of healthcare providers, discussed management plan with patient and/or family, agreed with resident/PA/COOK ROOM SUPERVISOR. The past history and parts of the chart have been autopopulated. Impression 82 year old woman * a.fib with RVR * uti * mili Plan -f/u cardiology -increase metoprolol -oral digoxin -po cardizem -coumadin dosage - INR goal 2-3 DVT prophylaxis at all times off amiodarone - downgrade to telemetry PT consultation will sign out to hospitalist TTS 35 min
[2017-09-16 08:00] VITALS: BP 94/70
--- NOTE | 2017-09-16 09:20 | PN- Cardiology ---
Subjective Subjective: No chest pain. No shortness of breath. No palpitations. No diaphoresis. No nausea or vomiting. The patient remains in atrial for ablation with borderline control of ventricular rate. Objective Vital Signs and I&Os Vital Signs Date Time Temp Pulse Resp B/P B/P Pulse O2 O2 Flow FiO2 Mean Ox Delivery Rate 09/16 0837 106 94/70 09/16 0800 Room Air 09/16 0503 111 111/85 09/16 0000 98.1 104 26 100/70 92 Room Air Room Air 09/15 2351 108 108/78 09/15 2351 117 108/78 09/15 2043 116 100/70 09/15 1800 Room Air 2.0L 09/15 1755 93 120/86 09/15 1650 100 09/15 1600 97.2 85 28 106/90 92 Room Air 09/15 1600 92 Room Air 09/15 1445 120 98/70 09/15 1200 92 Room Air 09/15 1200 97.6 118 24 96/76 92 Room Air Intake & Output 09/16 1600 09/16 0800 09/16 0000 09/15 1600 09/15 0800 09/15 0000 Intake Total 441 1184 843.5 234 1434 Output Total 300 250 100 450 450 Balance 141 934 743.5 -216 984 Intake, IV 361 904 243.5 134 624 Intake, Oral 80 280 600 100 810 Number 0 3 2 2 Bowel Movements Output, Urine 300 250 100 450 450 Patient 155 lb Weight Weight Bed scale Measurement Method Physical Exam: Gen: NAD HEENT: normal Lungs: clear to auscultation, normal resp. effort Heart: Irregularly irregular, S1, S2, no murmurs Abdomen: Soft, nontender, no masses Extremities: No clubbing, cyanosis, or edema. Neuro: Alert and oriented x 3, cranial nerves intact Current Medications: Current Medications Sig/Willy Start time Last Medication Dose Route Stop Time Status Admin Amiodarone HCl 900 MG Q24H 09/14 2229 AC 09/15 Dextrose/Water 500 ML IV 2351 Atorvastatin Calcium 40 MG 1700 09/11 1700 AC 09/15 PO 1650 Digoxin 0.125 MG 1700 09/15 1700 AC 09/15 PO 1650 Diltiazem HCl 120 MG Q6 09/15 1800 AC 09/16 PO 0503 Diltiazem HCl 90 MG Q6 09/13 2359 DC 09/15 PO 1206 Glycerin 2 SPRAY Q2P PRN 09/14 1915 AC 09/14 PO 2021 Magnesium Oxide 400 MG DAILY 09/14 1356 AC 09/16 PO 0836 Magnesium Sulfate 1 GM ONCE ONE 09/16 0715 AC 09/16 Dextrose/Water 100 ML IV 09/16 1114 0823 Magnesium Sulfate 1 GM ONCE ONE 09/15 0615 DC 09/15 Dextrose/Water 100 ML IV 09/15 1014 0753 Metoprolol Tartrate 200 MG Q12 09/15 2100 AC 09/16 PO 0837 Metoprolol Tartrate 100 MG Q8 09/15 1400 DC 09/15 PO 1445 Metoprolol Tartrate 100 MG BID 09/12 0900 DC 09/15 PO 0825 Polyethylene Glycol 17 GM DAILY 09/14 1357 AC 09/16 PO 0837 Potassium Chloride 20 MEQ ONCE ONE 09/16 0800 DC PO 09/16 0801 Senna/Docusate Sodium 1 TAB BID PRN 09/14 1400 AC 09/14 PO 1531 Sodium Chloride 1,000 ML ONCE ONE 09/15 1545 DC 09/15 IV 09/15 2224 1650 Warfarin Sodium 5 MG COUMADIN 1700 ONE 09/15 1700 DC 09/15 PO 09/15 1701 1650 Results Last 48 Hrs of Labs/Mics: Laboratory Tests 09/16/17 0500: Anion Gap 8, Estimated GFR > 60, Glucose 92, Calcium 8.2 L, Phosphorus 2.6, Magnesium 1.7, Total Bilirubin 1.2, AST 20, ALT 24, Albumin 2.5 L, PT 33.5 H, INR 3.04 H, CBC w Diff NO MAN DIFF REQ, RBC 4.74, MCV 87.0, MCH 28.9, MCHC 33.2 , RDW 17.7 H, MPV 11.4 H, Gran % 74.0, Lymphocytes % 17.7 L, Monocytes % 6.4, Eosinophils % 1.5, Basophils % 0.4, Absolute Granulocytes 4.0, Absolute Lymphocytes 1.0 L, Absolute Monocytes 0.3, Absolute Eosinophils 0.1, Absolute Basophils 0, Digoxin 1.0 09/15/17 0430: Anion Gap 11, Estimated GFR > 60, Glucose 96, Calcium 8.9, Phosphorus 2.6, Magnesium 1.8, Total Bilirubin 0.9, AST 17, ALT 25, Albumin 3.0 L, PT 20.7 H, INR 1.89 H, CBC w Diff NO MAN DIFF REQ, RBC 4.88, MCV 87.2, MCH 28.8, MCHC 33.1 , RDW 17.7 H, MPV 11.2 H, Gran % 74.3, Lymphocytes % 17.0 L, Monocytes % 7.5, Eosinophils % 0.7, Basophils % 0.5, Absolute Granulocytes 5.0, Absolute Lymphocytes 1.1 L, Absolute Monocytes 0.5, Absolute Eosinophils 0, Absolute Basophils 0 09/14/17 1419: Digoxin 1.6 Assessment/Plan Assessment/Plan Assessment: 1. Atrial fibrillation with borderline elevated ventricular rate 2. Urinary tract infection 3. Acute renal insufficiency 4. Thrombocytopenia 5. Supratherapeutic INR 6. Borderline hypotension 7. Hypocalcemia 8. Hypomagnesemia Plan: * Continue metoprolol 200 mg p.o. twice daily * Continue digoxin 0.125 mg p.o. daily, and recheck digoxin level * Continue diltiazem 120 mg p.o. every 6 hours, with plan to change to Cardizem CD 480 mg daily prior to discharge * Recommend supplementation of magnesium level to greater than 2.0 to assist with rate control. Would give magnesium sulfate 2 g IV followed by magnesium oxide 400 mg daily. * Discontinue amiodarone * Continue IV fluid Continue telemetry? Yes
--- NOTE | 2017-09-16 12:45 | Transfer of Care Summary ---
Hospital Course Course Hospital Course: Ms. Banks is an 82 year-old lady with past medical history significant for atrial fibrillation on Coumadin and [place] 20 years ago was brought in by her family because of the concerns of decreased by mouth intake, feeling weak and confusion and was found to be in atrial fibrillation with RVR on presentation. In the ER patient was found to have a heart rate in 160s, INR of 9, creatinine 1.3 and platelet count of 101. UA dirty with positive nitrates, esterase and packed WBCs. Problem list 1. Atrial fibrillation with RVR 2. Supratherapeutic INR - resolved 3. Urinary tract infection - received ceftriaxone x 3 days. 4. MILI - resolved 5. Thrombocytopenia - improving 6. Hypomagnesemia Atrial Fibrillation with RVR and Supratherapeutic INR; At the time of admission patient was given 1 dose of IV Cardizem 10 mg and 30 mg of by mouth Cardizem and was started on IV Cardizem drip. She also received IV Lopressor pushes, total of 20 mg after which she was hypotensive and the Cardizem drip was stopped. She was given 3.5 L of IV fluids with some improvement in her blood pressure. Cardiology was consulted who recommended giving IV digoxin, recieved digoxin x 2 with heart rate still ranging between 130-150. Further recommendations were to start the patient on cardizem drip which as unavailable because of national shortage and patient was started on amiodarone drip instead. * Patient heart rate improved, now in low 100s, amiodarone drip discontinued. * Continue Digoxin PO 0.125mg. * Continue metoprolol 200mg twice a day and cardizem 120 mg Q 6, switched to Cardizem CD 480mg yesterday. * Patient received 1 dose of vitamin K 2.5 mg by mouth at the time of admission for INR of 9.0. Currently therapeutic. Repeat INR everyday and dose Coumadin accordingly. Urinary tract infection; Patient received ceftriaxone x 3 days for UTI (positive UA in elderly patient with new onset confusion). - Currently monitoring off antibiotics. - Monitor vitals and white blood cell count. MILI; Creatinine of 1.4 likely secondary to dehydration, improved with IV fluids. - Continue to monitor. Thrombocytopenia; Platelet count dropped at the time of admission but now continue to improve. Unclear etiology - Repeat CBC in a.m. Hypomagnesemia; Continue to monitor magnesium level and replete accordingly. PT evaluation - pending for discharge recommendations. DVT prophylaxis; Alps, patient is on Coumadin for A. fib Patient is DNR/DNI Assessment/Plan: See Above.
[2017-09-16 16:00] VITALS: BP 98/52
[2017-09-17] VITALS: BP 108/70
[2017-09-17 06:51] LABS: ABSOLUTE BASOPHIL COUNT 0 /CUMM (0.0-0.2); ABSOLUTE EOSINOPHIL COUNT 0.1 /CUMM (0.0-0.7); ABSOLUTE GRANULOCYTE CT 3.7 /CUMM (1.4-6.5); ABSOLUTE MONOCYTE COUNT 0.3 /CUMM (0.10-0.60); BASOPHIL % 0.5 % (0.0-2.0); EOSINOPHIL % 1.6 % (0-5); GRANULOCYTE % 71.4 % (42.2-75.2); HEMATOCRIT 40.4 % (37-47); MEAN CORPUSCULAR HGB 28.9 PG (27.0-31.0); MEAN CORPUSCULAR HGB CONC 33.4 G/DL (33.0-37.0); MEAN CORPUSCULAR VOLUME 86.3 FL (81.0-99.0); MEAN PLATELET VOLUME 11.2 FL (7.4-10.4); PLATELET COUNT 107 /CUMM (130-400); RBC DISTRIBUTION WIDTH 17.7 % (11.5-14.5); RED BLOOD CELL CT 4.68 /CUMM (4.20-5.40); WHITE BLOOD CELL COUNT 5.2 /CUMM (4.8-10.8)
[2017-09-17 08:00] VITALS: BP 102/80
--- NOTE | 2017-09-17 08:49 | PN- Housestaff ---
Subjective Follow-up For: - Atrial Fibrillation with RVR - Supratherapeutic INR-resolved - UTI, tretaed with Ceftriaxone x 3 days - Thrombocytopenia-improving Tele-Events Since Last Visit: Atrial Fibrillation No overnight events Subjective: Patient resting comfortably, remains asymptomatic. Review of Systems Constitutional: Reports: no symptoms. EENTM: Reports: no symptoms. Cardiovascular: Reports: no symptoms. Respiratory: Reports: no symptoms. Gastrointestinal: Reports: no symptoms. Genitourinary: Reports: no symptoms. Musculoskeletal: Reports: no symptoms. Skin: Reports: no symptoms. Neurological/Psychological: Reports: no symptoms. Hematologic/Endocrine: Reports: no symptoms. Immunologic/Allergic: Reports: no symptoms. Objective Last 24 Hrs of Vital Signs/I&O Vital Signs Date Time Temp Pulse Resp B/P B/P Pulse O2 O2 Flow FiO2 Mean Ox Delivery Rate 09/17 1254 112 88/60 09/17 0902 97.6 104 18 102/80 09/17 0800 94 Room Air Room Air 09/17 0800 97.6 104 18 102/80 92 Room Air Room Air 09/17 0535 123 110/80 09/17 0000 98.4 112 18 108/70 93 Room Air Room Air 09/16 2317 98 108/70 09/16 2033 109 110/72 09/16 1814 103 09/16 1600 Room Air 09/16 1600 97.0 91 22 98/52 92 Room Air 09/16 1313 85 92/60 Intake & Output 09/17 1600 09/17 0800 09/17 0000 Intake Total 500 840 Output Total 350 300 Balance 150 540 Intake, IV 400 400 Intake, Oral 100 440 Number 1 3 Bowel Movements Output, Urine 350 300 Patient 186 lb Weight Weight Bed scale Measurement Method Physical Exam General Appearance: Alert, Cooperative, No Acute Distress Skin: No Rashes, No Breakdown Cardiovascular: Normal S1, Normal S2, Irregular Lungs: Clear to Auscultation, Normal Air Movement Abdomen: Normal Bowel Sounds, Soft, No Tenderness Extremities: No Clubbing, No Cyanosis, No Edema Current Medications: Current Medications Sig/Willy Start time Last Medication Dose Route Stop Time Status Admin Atorvastatin Calcium 40 MG 1700 09/11 1700 AC 09/16 PO 1814 Digoxin 0.125 MG 1700 09/15 1700 AC 09/16 PO 1814 Diltiazem HCl 120 MG Q6 04/16 1800 AC 09/17 PO 1254 Glycerin 2 SPRAY Q2P PRN 09/14 1915 AC 09/14 PO 2021 Magnesium Oxide 400 MG DAILY 09/14 1356 AC 09/17 PO 0902 Magnesium Sulfate 1 GM ONCE ONE 09/16 0930 DC 09/16 Dextrose/Water 100 ML IV 09/16 1329 0940 Melatonin 5 MG AT BEDTIME 09/16 2015 AC 09/16 PO 2033 Metoprolol Tartrate 200 MG Q12 09/15 2100 AC 09/17 PO 0902 Polyethylene Glycol 17 GM DAILY 09/14 1357 AC 09/17 PO 0903 Potassium Chloride 20 MEQ ONCE ONE 09/17 0815 DC 09/17 PO 09/17 0816 0902 Senna/Docusate Sodium 1 TAB BID PRN 09/14 1400 AC 09/14 PO 1531 Sodium Chloride 1,000 ML Q13H 09/17 1300 AC 09/17 IV 1303 Sodium Chloride 1,000 ML ONCE ONE 09/16 1430 DC 09/16 IV 09/17 1029 1443 Last 24 Hrs of Lab/Simone Results Last 24 Hrs of Labs/Mics: Laboratory Tests 09/17/17 0530: Anion Gap 10, Estimated GFR > 60, Glucose 87, Calcium 8.2 L, Phosphorus 2.6, Magnesium 1.9, Total Bilirubin 1.0, AST 16, ALT 29, Albumin 2.4 L, PT 44.0 *H, INR 3.98 H, CBC w Diff NO MAN DIFF REQ, RBC 4.68, MCV 86.3, MCH 28.9, MCHC 33.4 , RDW 17.7 H, MPV 11.2 H, Gran % 71.4, Lymphocytes % 19.9 L, Monocytes % 6.6, Eosinophils % 1.6, Basophils % 0.5, Absolute Granulocytes 3.7, Absolute Lymphocytes 1.0 L, Absolute Monocytes 0.3, Absolute Eosinophils 0.1, Absolute Basophils 0, Digoxin 1.0, Urine Color YEL, Urine Clarity CLDY H, Urine pH 6.0, Ur Specific Pierson >= 1.030, Urine Protein TRACE H, Urine Ketones NEG, Urine Nitrite NEG, Urine Bilirubin NEG, Urine Urobilinogen 0.2, Ur Leukocyte Esterase SMALL H, Ur Microscopic SEDIMENT EXAMINED, Urine RBC RARE, Urine WBC 25-50 H, Ur Epithelial Cells MOD H, Urine Bacteria FEW H, Micro UA Comment , Urine Hemoglobin TRACE-INTACT, Urine Glucose NEG Assessment/Plan Assessment: Ms. Banks is an 82 year-old lady with past medical history significant for atrial fibrillation on Coumadin and [place] 20 years ago was brought in by her family because of the concerns of decreased by mouth intake, feeling weak and confusion and was found to be in atrial fibrillation with RVR on presentation. In the ER patient was found to have a heart rate in 160s, INR of 9, creatinine 1.3 and platelet count of 101. UA dirty with positive nitrates, esterase and packed WBCs. Problem list 1. Atrial fibrillation with RVR 2. Supratherapeutic INR - resolved 3. Urinary tract infection - received ceftriaxone x 3 days. 4. MILI - resolved 5. Thrombocytopenia - improving 6. Hypomagnesemia * Continue to monitor on telemetry. * Digoxin level remains therapeutic, continue digoxin 0.125. Repeat levels in the morning. * Continue metoprolol 200 twice a day and cardizem 120 mg Q 6. * Repeat INR this morning is 3.98. Hold coumadin today and repeat INR in a.m. * Continue IV fluids for borderline low blood pressure. * Appreciate cardiology recommendations. * Creatinine improved with IV fluids, will continue to monitor. * Patient received ceftriaxone x 3 days for UTI(positive UA in elderly patient with new onset confusion). Will monitor off antibiotics. * Platelet count dropped at the time of admission but now continue to improve, will monitor. * Continue to monitor magnesium level and replete accordingly. DVT prophylaxis; Alps, patient is on Coumadin for A. fib Patient is DNR/DNI Problem List: 1. Atrial fibrillation with rapid ventricular response Pain Ratin Pain Location: None Pain Goal: Remain pain free Pain Plan: NA Tomorrow's Labs & Rationales: CBC(thrombocytopenia) ICU bundle
--- NOTE | 2017-09-17 12:36 | PN- Cardiology ---
Subjective Subjective: Stable with no specific complaints. No cardiac symptoms. Remains in atrial fibrillation with variable rate. Objective Vital Signs and I&Os Vital Signs Date Time Temp Pulse Resp B/P B/P Pulse O2 O2 Flow FiO2 Mean Ox Delivery Rate 09/17 0902 97.6 104 18 102/80 09/17 0800 94 Room Air Room Air 09/17 0800 97.6 104 18 102/80 92 Room Air Room Air 09/17 0535 123 110/80 09/17 0000 98.4 112 18 108/70 93 Room Air Room Air 09/16 2317 98 108/70 09/16 2033 109 110/72 09/16 1814 103 09/16 1600 Room Air 09/16 1600 97.0 91 22 98/52 92 Room Air 09/16 1313 85 92/60 Intake & Output 09/17 1600 09/17 0800 09/17 0000 09/16 1600 09/16 0800 09/16 0000 Intake Total 500 840 165 966 4115 Output Total 350 300 150 300 250 Balance 150 540 330 141 934 Intake, IV 400 400 361 904 Intake, Oral 100 440 480 80 280 Number 1 3 1 0 3 Bowel Movements Output, Urine 350 300 150 300 250 Patient 186 lb Weight Weight Bed scale Measurement Method Physical Exam: General Appearance: no apparent distress, alert, awake, comfortable Head: atraumatic, normal appearance Respiratory: normal breath sounds, chest non-tender, lungs clear Cardiovascular: irregularly irregular, S1, S2, 1/6 systolic murmur left upper sternal border Gastrointestinal: normal bowel sounds, soft, non-tender Extremities: normal inspection, no edema Cranial Nerves: normal hearing, normal speech, PERRL Current Medications: Current Medications Sig/Willy Start time Last Medication Dose Route Stop Time Status Admin Atorvastatin Calcium 40 MG 1700 09/11 1700 AC 09/16 PO 1814 Digoxin 0.125 MG 1700 09/15 1700 AC 09/16 PO 1814 Diltiazem HCl 120 MG Q6 09/15 1800 AC 09/17 PO 0535 Glycerin 2 SPRAY Q2P PRN 09/14 1914 AC 09/14 PO 202 Magnesium Oxide 400 MG DAILY 09/14 1356 AC 09/17 PO 0902 Magnesium Sulfate 1 GM ONCE ONE 09/16 0930 DC 09/16 Dextrose/Water 100 ML IV 09/16 1329 0940 Melatonin 5 MG AT BEDTIME 09/16 2014 AC 09/16 PO 2032 Metoprolol Tartrate 200 MG Q12 09/15 2100 AC 09/17 PO 0902 Polyethylene Glycol 17 GM DAILY 09/14 1357 AC 09/17 PO 0903 Potassium Chloride 20 MEQ ONCE ONE 09/17 0815 RI 09/17 PO 09/17 0816 0902 Senna/Docusate Sodium 1 TAB BID PRN 09/14 1400 AC 09/14 PO 1531 Sodium Chloride 1,000 ML ONCE ONE 09/16 1430 DC 09/16 IV 09/17 1029 1443 Results Last 48 Hrs of Labs/Mics: Laboratory Tests 09/17/17 0530: Anion Gap 10, Estimated GFR > 60, Glucose 87, Calcium 8.2 L, Phosphorus 2.6, Magnesium 1.9, Total Bilirubin 1.0, AST 16, ALT 29, Albumin 2.4 L, PT 44.0 *H, INR 3.98 H, CBC w Diff NO MAN DIFF REQ, RBC 4.68, MCV 86.3, MCH 28.9, MCHC 33.4 , RDW 17.7 H, MPV 11.2 H, Gran % 71.4, Lymphocytes % 19.9 L, Monocytes % 6.6, Eosinophils % 1.6, Basophils % 0.5, Absolute Granulocytes 3.7, Absolute Lymphocytes 1.0 L, Absolute Monocytes 0.3, Absolute Eosinophils 0.1, Absolute Basophils 0, Digoxin 1.0, Urine Color YEL, Urine Clarity CLDY H, Urine pH 6.0, Ur Specific [place] >= 1.030, Urine Protein TRACE H, Urine Ketones NEG, Urine Nitrite NEG, Urine Bilirubin NEG, Urine Urobilinogen 0.2, Ur Leukocyte Esterase SMALL H, Ur Microscopic SEDIMENT EXAMINED, Urine RBC RARE, Urine WBC 25-50 H, Ur Epithelial Cells MOD H, Urine Bacteria FEW H, Micro UA Comment , Urine Hemoglobin TRACE-INTACT, Urine Glucose NEG 09/16/17 0500: Anion Gap 8, Estimated GFR > 60, Glucose 92, Calcium 8.2 L, Phosphorus 2.6, Magnesium 1.7, Total Bilirubin 1.2, AST 20, ALT 24, Albumin 2.5 L, PT 33.5 H, INR 3.04 H, CBC w Diff NO MAN DIFF REQ, RBC 4.74, MCV 87.0, MCH 28.9, MCHC 33.2 , RDW 17.7 H, MPV 11.4 H, Gran % 74.0, Lymphocytes % 17.7 L, Monocytes % 6.4, Eosinophils % 1.5, Basophils % 0.4, Absolute Granulocytes 4.0, Absolute Lymphocytes 1.0 L, Absolute Monocytes 0.3, Absolute Eosinophils 0.1, Absolute Basophils 0, Digoxin 1.0 Assessment/Plan Assessment/Plan Assessment: 1. Atrial fibrillation with borderline elevated ventricular rate 2. Urinary tract infection 3. Acute renal insufficiency 4. Thrombocytopenia 5. Supratherapeutic INR 6. Borderline hypotension 7. Hypocalcemia 8. Hypomagnesemia Plan: * Continue metoprolol 200 mg p.o. twice daily * Continue digoxin 0.125 mg p.o. daily. Digoxin level noted * Continue diltiazem 120 mg p.o. every 6 hours, with plan to change to Cardizem CD 480 mg daily prior to discharge * Recommend supplementation of magnesium level to greater than 2.0 to assist with rate control. Would give magnesium sulfate 2 g IV followed by magnesium oxide 400 mg daily. * Rate remains fairly stable off of amiodarone. Continue to monitor for now. * Continue IV fluid Continue telemetry? Yes
[2017-09-17 16:00] VITALS: BP 90/58
[2017-09-18 01:41] VITALS: BP 96/50
[2017-09-18 04:23] LABS: ABSOLUTE BASOPHIL COUNT 0 /CUMM (0.0-0.2); ABSOLUTE EOSINOPHIL COUNT 0.1 /CUMM (0.0-0.7); ABSOLUTE GRANULOCYTE CT 3.4 /CUMM (1.4-6.5); ABSOLUTE LYMPH COUNT 1.2 /CUMM (1.2-3.4); ABSOLUTE MONOCYTE COUNT 0.3 /CUMM (0.10-0.60); BASOPHIL % 0.6 % (0.0-2.0); EOSINOPHIL % 1.1 % (0-5); GRANULOCYTE % 68.7 % (42.2-75.2); HEMATOCRIT 44.7 % (37-47); MEAN CORPUSCULAR HGB CONC 33.1 G/DL (33.0-37.0); MEAN CORPUSCULAR VOLUME 87.7 FL (81.0-99.0); MEAN PLATELET VOLUME 11.7 FL (7.4-10.4); RBC DISTRIBUTION WIDTH 18.1 % (11.5-14.5)
[2017-09-18 04:25] LABS: PT 41.8 SEC (9.4-12.5)
[2017-09-18 04:45] LABS: PLATELET COUNT 132 /CUMM (130-400)
[2017-09-18 08:00] VITALS: BP 94/76
--- NOTE | 2017-09-18 10:11 | PN- Cardiology ---
Subjective Subjective: The patient reports that she is feeling better. No chest pain. No shortness of breath. No diaphoresis. No palpitations. No lightheadedness or dizziness. No nausea or vomiting. She remains in atrial fibrillation. Ventricular rate is acceptable, with average rate less than 110. Objective Vital Signs and I&Os Vital Signs Date Time Temp Pulse Resp B/P B/P Pulse O2 O2 Flow FiO2 Mean Ox Delivery Rate 09/18 0800 97.9 120 18 94/76 94 Room Air 09/18 0546 118 24 112/68 09/18 0141 96.6 92 14 96/50 94 09/18 0017 104 20 96/50 09/17 1713 97.8 78 20 90/58 09/17 1712 97.8 91 18 90/58 09/17 1600 97.8 97 23 90/58 92 Room Air 09/17 1254 112 88/60 Intake & Output 09/18 1600 09/18 0800 09/18 0000 09/17 1600 09/17 0800 09/17 0000 Intake Total 120 930 500 840 Output Total 400 200 400 350 300 Balance -400 -80 530 150 540 Intake, IV 450 400 400 Intake, Oral 120 480 100 440 Number 2 3 1 3 Bowel Movements Output, Urine 400 200 400 350 300 Patient 186 lb Weight Weight Bed scale Measurement Method Physical Exam: Gen: NAD HEENT: normal Lungs: clear to auscultation, normal resp. effort Heart: Irregularly irregular, S1, S2, no murmurs Abdomen: Soft, nontender, no masses Extremities: No clubbing, cyanosis, or edema. Neuro: Alert and oriented x 3, cranial nerves intact Current Medications: Current Medications Sig/Willy Start time Last Medication Dose Route Stop Time Status Admin Atorvastatin Calcium 40 MG 0 09/11 1700 AC 09/17 PO 1712 Digoxin 0.125 MG 1700 09/15 1700 AC 09/17 PO 1712 Diltiazem HCl 120 MG Q6 09/15 1800 AC 09/18 PO 0546 Glycerin 2 SPRAY Q2P PRN 09/14 1914 AC 09/14 PO 202 Magnesium Oxide 400 MG DAILY 09/14 1356 AC 09/17 PO 0902 Magnesium Sulfate 1 GM Q2H 09/17 1315 DC 09/17 Dextrose/Water 100 ML IV 09/17 1713 191 Melatonin 5 MG AT BEDTIME 09/16 2014 AC 09/17 PO 2131 Metoprolol Tartrate 200 MG Q12 09/15 2100 AC 09/17 PO 0902 Polyethylene Glycol 17 GM DAILY 09/14 1357 AC 09/17 PO 0903 Senna/Docusate Sodium 1 TAB BID PRN 09/14 1400 AC 09/14 PO 1531 Sodium Chloride 1,000 ML Q13H 09/17 1300 AC 09/18 IV 0837 Sodium Chloride 1,000 ML ONCE ONE 09/16 1430 DC 09/16 IV 09/17 1029 1443 Results Last 48 Hrs of Labs/Mics: Laboratory Tests 09/18/17 0330: Anion Gap 12, Estimated GFR > 60, BUN/Creatinine Ratio 12.9, Magnesium 2.2, PT 41.8 H, INR 3.78 H, CBC w Diff NO MAN DIFF REQ, RBC 5.10, MCV 87.7, MCH 29.0, MCHC 33.1, RDW 18.1 H, MPV 11.7 H, Gran % 68.7, Lymphocytes % 23.6, Monocytes % 6.0, Eosinophils % 1.1, Basophils % 0.6, Absolute Granulocytes 3.4, Absolute Lymphocytes 1.2, Absolute Monocytes 0.3, Absolute Eosinophils 0.1, Absolute Basophils 0 09/17/17 0530: Anion Gap 10, Estimated GFR > 60, Glucose 87, Calcium 8.2 L, Phosphorus 2.6, Magnesium 1.9, Total Bilirubin 1.0, AST 16, ALT 29, Albumin 2.4 L, PT 44.0 *H, INR 3.98 H, CBC w Diff NO MAN DIFF REQ, RBC 4.68, MCV 86.3, MCH 28.9, MCHC 33.4 , RDW 17.7 H, MPV 11.2 H, Gran % 71.4, Lymphocytes % 19.9 L, Monocytes % 6.6, Eosinophils % 1.6, Basophils % 0.5, Absolute Granulocytes 3.7, Absolute Lymphocytes 1.0 L, Absolute Monocytes 0.3, Absolute Eosinophils 0.1, Absolute Basophils 0, Digoxin 1.0, Urine Color YEL, Urine Clarity CLDY H, Urine pH 6.0, Ur Specific [place] >= 1.030, Urine Protein TRACE H, Urine Ketones NEG, Urine Nitrite NEG, Urine Bilirubin NEG, Urine Urobilinogen 0.2, Ur Leukocyte Esterase SMALL H, Ur Microscopic SEDIMENT EXAMINED, Urine RBC RARE, Urine WBC 25-50 H, Ur Epithelial Cells MOD H, Urine Bacteria FEW H, Micro UA Comment , Urine Hemoglobin TRACE-INTACT, Urine Glucose NEG Recent Imaging Studies: Echocardiogram 09/11/17: 1. Moderate aortic sclerosis is present with no valvular stenosis or insufficiency. 2. Mitral leaflet thickening is present with anular calcification and moderate to severe mitral insufficiency with severe left atrial enlargement. 3. THere is no pericardial fluid present. 4. The left ventricular chamber size is normal with mild LVH and an ejection fraction of at least 55%. 5. Moderate tricuspid insufficiency is present with moderate to severe right atrial enlargment and an estimated RV systolic pressure of at least 44 mmHg. 6. A followup study would be useful when the patient's heart rate is better controlled. Assessment/Plan Assessment/Plan Assessment: 1. Atrial fibrillation with ventricular rate under acceptable control 2. Urinary tract infection 3. Thrombocytopenia, improved 4. Supratherapeutic INR, improved 5. Borderline hypotension 6. Hypomagnesemia, improved Plan: * Change short-acting diltiazem to Cardizem CD 480 mg p.o. daily * Continue metoprolol 200 mg p.o. twice daily * Continue digoxin 0.125 mg p.o. daily * Discharge plannning * Follow up with Dr. Velez 1 week after discharge. Continue telemetry? Yes
--- NOTE | 2017-09-18 11:10 | PN- Pulmonary ---
Subjective HPI/Critical Care Issues: The patient reports that she is feeling better. No chest pain. No shortness of breath. No diaphoresis. No palpitations. No lightheadedness or dizziness. No nausea or vomiting. She remains in atrial fibrillation. Ventricular rate is acceptable, with average rate less than 110. Objective Current Medications: Current Medications Sig/Willy Start time Last Medication Dose Route Stop Time Status Admin Atorvastatin Calcium 40 MG 1700 09/11 1700 AC 09/17 PO 1712 Digoxin 0.125 MG 1700 09/15 1700 AC 09/17 PO 1712 Diltiazem HCl 120 MG Q6 09/15 1800 AC 09/18 PO 0546 Glycerin 2 SPRAY Q2P PRN 09/14 1915 AC 09/14 PO 202 Magnesium Oxide 400 MG DAILY 09/14 1356 AC 09/17 PO 0902 Magnesium Sulfate 1 GM Q2H 09/17 1315 DC 09/17 Dextrose/Water 100 ML IV 09/17 1713 191 Melatonin 5 MG AT BEDTIME 09/16 2014 AC 09/17 PO 2131 Metoprolol Tartrate 200 MG Q12 09/15 2100 AC 09/18 PO 1101 Polyethylene Glycol 17 GM DAILY 09/14 1357 AC 09/17 PO 0903 Senna/Docusate Sodium 1 TAB BID PRN 09/14 1400 AC 09/14 PO 1531 Sodium Chloride 1,000 ML Q13H 09/17 1300 AC 09/18 IV 0837 Vital Signs & I&O Last 24 Hrs of Vitals and I&O: Vital Signs Date Time Temp Pulse Resp B/P B/P Pulse O2 O2 Flow FiO2 Mean Ox Delivery Rate 09/18 1101 112 94/60 09/18 0800 97.9 120 18 94/76 94 Room Air 09/18 0546 118 24 112/68 09/18 0141 96.6 92 14 96/50 94 09/18 0017 104 20 96/50 09/17 1713 97.8 78 20 90/58 09/17 1712 97.8 91 18 90/58 09/17 1600 97.8 97 23 90/58 92 Room Air 09/17 1254 112 88/60 Intake & Output 09/18 1600 09/18 0800 09/18 0000 Intake Total 120 Output Total 400 200 Balance -400 -80 Intake, Oral 120 Number 2 Bowel Movements Output, Urine 400 200 Laboratory Tests 09/18 09/17 0330 0530 Chemistry Sodium (137 - 145 mmol/L) 136 L 136 L Potassium (3.5 - 5.1 mmol/L) 4.0 3.9 Chloride (98 - 107 mmol/L) 106 106 Carbon Dioxide (22 - 30 mmol/L) 18 L 20 L Anion Gap (5 - 16) 12 10 BUN (7 - 17 mg/dL) 9 10 Creatinine (0.5 - 1.0 mg/dL) 0.7 0.7 Estimated GFR (>60 ml/min) > 60 > 60 BUN/Creatinine Ratio (7 - 25 %) 12.9 Glucose (65 - 99 mg/dL) 87 Calcium (8.4 - 10.2 mg/dL) 8.2 L Phosphorus (2.5 - 4.5 mg/dL) 2.6 Magnesium (1.6 - 2.3 mg/dL) 2.2 1.9 Total Bilirubin (0.2 - 1.3 mg/dL) 1.0 AST (14 - 36 U/L) 16 ALT (9 - 52 U/L) 29 Albumin (3.5 - 5.0 g/dL) 2.4 L Coagulation PT (9.4 - 12.5 SEC) 41.8 H 44.0 *H INR (0.90 - 1.19) 3.78 H 3.98 H Hematology CBC w Diff NO MAN DIFF REQ NO MAN DIFF REQ WBC (4.8 - 10.8 /CUMM) 5.0 5.2 RBC (4.20 - 5.40 /CUMM) 5.10 4.68 Hgb (12.0 - 16.0 G/DL) 14.8 13.5 Hct (37 - 47 %) 44.7 40.4 MCV (81.0 - 99.0 FL) 87.7 86.3 MCH (27.0 - 31.0 PG) 29.0 28.9 MCHC (33.0 - 37.0 G/DL) 33.1 33.4 RDW (11.5 - 14.5 %) 18.1 H 17.7 H Plt Count (130 - 400 /CUMM) 132 107 L MPV (7.4 - 10.4 FL) 11.7 H 11.2 H Gran % (42.2 - 75.2 %) 68.7 71.4 Lymphocytes % (20.5 - 51.1 %) 23.6 19.9 L Monocytes % (1.7 - 9.3 %) 6.0 6.6 Eosinophils % (0 - 5 %) 1.1 1.6 Basophils % (0.0 - 2.0 %) 0.6 0.5 Absolute Granulocytes (1.4 - 6.5 /CUMM) 3.4 3.7 Absolute Lymphocytes (1.2 - 3.4 /CUMM) 1.2 1.0 L Absolute Monocytes (0.10 - 0.60 /CUMM) 0.3 0.3 Absolute Eosinophils (0.0 - 0.7 /CUMM) 0.1 0.1 Absolute Basophils (0.0 - 0.2 /CUMM) 0 0 Toxicology Digoxin (0.8 - 2.0 ng/mL) 1.0 Urines Urine Color (YEL,AMB,STR) YEL Urine Clarity (CLEAR) CLDY H Urine pH (5.0 - 8.0) 6.0 Ur Specific [place] (1.001 - 1.035) >= 1.030 Urine Protein (NEG,<30 MG/DL) TRACE H Urine Ketones (NEG) NEG Urine Nitrite (NEG) NEG Urine Bilirubin (NEG) NEG Urine Urobilinogen (0.1 - 1.0 EU/dl) 0.2 Ur Leukocyte Esterase (NEG) SMALL H Ur Microscopic SEDIMENT EXAMINED Urine RBC (0 - 5 /HPF) RARE Urine WBC (0 - 2 /HPF) 25-50 H Ur Epithelial Cells (NONE,FEW) MOD H Urine Bacteria (NEG/NONE) FEW H Micro UA Comment Urine Hemoglobin (NEG) TRACE-INTACT Urine Glucose (N MG/DL) NEG Impression/Plan Impression/Plan Impression/Plan: Gen: NAD HEENT: normal Lungs: clear to auscultation, normal resp. effort Heart: Irregularly irregular, S1, S2, no murmurs Abdomen: Soft, nontender, no masses Extremities: No clubbing, cyanosis, or edema. Neuro: Alert and oriented x 3, cranial nerves intact Problem list 1. Atrial fibrillation with RVR better on po meds 2. Resolved Supratherapeutic INR better now again high needs monitoring 3. Urinary tract infection resolved 4. MILI resolved 5. Thrombocytopenia improving 6. Altered Thyroid function tests will repeat 7. Electrolyte abnormality improved Plan Cont rate control meds per cardio Stable Ok to dc
--- NOTE | 2017-09-18 11:28 | PN- Housestaff ---
Fredis LORENZO,[facility] 09/18/17 1128: Subjective Follow-up For: - Atrial Fibrillation with RVR - Supratherapeutic INR-resolved - UTI, tretaed with Ceftriaxone x 3 days - Thrombocytopenia-improving Subjective: Patient remains asymptomatic, but according to the her mental/clinical status has improved significantly since admission. Denies any active complaints Review of Systems Constitutional: Reports: no symptoms. EENTM: Reports: no symptoms. Cardiovascular: Reports: no symptoms. Respiratory: Reports: no symptoms. Gastrointestinal: Reports: no symptoms. Genitourinary: Reports: no symptoms. Musculoskeletal: Reports: no symptoms. Skin: Reports: no symptoms. Neurological/Psychological: Reports: no symptoms. Hematologic/Endocrine: Reports: no symptoms. Immunologic/Allergic: Reports: no symptoms. Objective Last 24 Hrs of Vital Signs/I&O Vital Signs Date Time Temp Pulse Resp B/P B/P Pulse O2 O2 Flow FiO2 Mean Ox Delivery Rate 09/18 1101 112 94/60 09/18 0800 97.9 120 18 94/76 94 Room Air 09/18 0546 118 24 112/68 09/18 0141 96.6 92 14 96/50 94 09/18 0017 104 20 96/50 09/17 1713 97.8 78 20 90/58 09/17 1712 97.8 91 18 90/58 09/17 1600 97.8 97 23 90/58 92 Room Air 09/17 1254 112 88/60 Intake & Output 09/18 1600 09/18 0800 09/18 0000 Intake Total 120 Output Total 400 200 Balance -400 -80 Intake, Oral 120 Number 2 Bowel Movements Output, Urine 400 200 Physical Exam General Appearance: Alert, Cooperative, No Acute Distress Skin: No Rashes, No Breakdown HEENT: Atraumatic, PERRLA, EOMI Cardiovascular: Irregular Lungs: Clear to Auscultation, Normal Air Movement Abdomen: Normal Bowel Sounds, Soft, No Tenderness Extremities: No Clubbing, No Cyanosis, No Edema Current Medications: Current Medications Sig/Willy Start time Last Medication Dose Route Stop Time Status Admin Atorvastatin Calcium 40 MG 0 09/11 1700 AC 09/17 PO 1712 Digoxin 0.125 MG 1700 09/15 1700 AC 09/17 PO 1712 Diltiazem HCl 120 MG Q6 09/15 1800 AC 09/18 PO 0546 Glycerin 2 SPRAY Q2P PRN 09/14 1914 AC 09/14 PO 2020 Magnesium Oxide 400 MG DAILY 09/14 1356 AC 09/17 PO 0902 Magnesium Sulfate 1 GM Q2H 09/17 1315 DC 09/17 Dextrose/Water 100 ML IV 09/17 1711914 Melatonin 5 MG AT BEDTIME 09/16 2014 AC 09/17 PO 2131 Metoprolol Tartrate 200 MG Q12 09/15 2100 AC 09/18 PO 1101 Polyethylene Glycol 17 GM DAILY 09/14 1357 AC 09/17 PO 0903 Senna/Docusate Sodium 1 TAB BID PRN 09/14 1400 AC 09/14 PO 1531 Sodium Chloride 1,000 ML Q13H 09/17 1300 AC 09/18 IV 0837 Last 24 Hrs of Lab/Simone Results Last 24 Hrs of Labs/Mics: Laboratory Tests 09/18/17 0330: Anion Gap 12, Estimated GFR > 60, BUN/Creatinine Ratio 12.9, Magnesium 2.2, PT 41.8 H, INR 3.78 H, CBC w Diff NO MAN DIFF REQ, RBC 5.10, MCV 87.7, MCH 29.0, MCHC 33.1, RDW 18.1 H, MPV 11.7 H, Gran % 68.7, Lymphocytes % 23.6, Monocytes % 6.0, Eosinophils % 1.1, Basophils % 0.6, Absolute Granulocytes 3.4, Absolute Lymphocytes 1.2, Absolute Monocytes 0.3, Absolute Eosinophils 0.1, Absolute Basophils 0 Assessment/Plan Assessment: Ms. Banks is an 82 year-old lady with past medical history significant for atrial fibrillation on Coumadin and IN 20 years ago was brought in by her family because of the concerns of decreased by mouth intake, feeling weak and confusion and was found to be in atrial fibrillation with RVR on presentation. In the ER patient was found to have a heart rate in 160s, INR of 9, creatinine 1.3 and platelet count of 101. UA dirty with positive nitrates, esterase and packed WBCs. Problem list 1. Atrial fibrillation with RVR 2. Supratherapeutic INR - resolved 3. Urinary tract infection - received ceftriaxone x 3 days. 4. MILI - resolved 5. Thrombocytopenia - improving 6. Hypomagnesemia * Continue to monitor on telemetry. * Continue digoxin 0.125. * Continue metoprolol 200 twice a day and change cardizem to 480mg CD. * Repeat INR this morning is 3.78. Hold coumadin today and repeat INR in a.m. * Continue IV fluids for borderline low blood pressure. * Appreciate cardiology recommendations. * Creatinine improved with IV fluids, will continue to monitor. * Patient received ceftriaxone x 3 days for UTI(positive UA in elderly patient with new onset confusion). Will monitor off antibiotics. * Platelet count dropped at the time of admission but now continue to improve, will monitor. * Continue to monitor magnesium level and replete accordingly. DVT prophylaxis; Alps, patient is on Coumadin for A. fib Patient is DNR/DNI Problem List: 1. Atrial fibrillation with rapid ventricular response Pain Ratin Pain Location: None Pain Goal: Remain pain free Pain Plan: NA Tomorrow's Labs & Rationales: CBC(thrombocytopenia) ICU bundle(hypokalemia, hypomagnesemia) Eduardo Torres MD 09/18/17 1805: Attending MD Review Statement Attending Statement Attending MD Statement: examined this patient, discuss w/resident/PA/HL7 DEVELOPER, agreed w/resident/PA/HL7 DEVELOPER, discussed with family, reviewed EMR data (avail), discussed with nursing, discussed with case mgmt, amended to note Attending Assessment/Plan: The patient was seen and discussed with house staff, nursing, case management and Cardiology (Dr. Olvera). HR continues around 110 at rest and increases with movement. Renee any chest pain. Has bed in STR. Dr. Olvera sated could be considered for ablation. IF HR remains elevated may need evaluation here.
[2017-09-18 13:10] VITALS: BP 90/60
[2017-09-18 16:00] VITALS: BP 110/80
[2017-09-18 19:02] VITALS: BP 112/80
[2017-09-18 23:00] VITALS: BP 108/00
[2017-09-19 06:37] VITALS: BP 118/00
[2017-09-19 07:41] LABS: ABSOLUTE BASOPHIL COUNT 0 /CUMM (0.0-0.2); ABSOLUTE EOSINOPHIL COUNT 0.1 /CUMM (0.0-0.7); ABSOLUTE GRANULOCYTE CT 3.6 /CUMM (1.4-6.5); ABSOLUTE LYMPH COUNT 1.2 /CUMM (1.2-3.4); ABSOLUTE MONOCYTE COUNT 0.2 /CUMM (0.10-0.60); BASOPHIL % 0.5 % (0.0-2.0); EOSINOPHIL % 1.4 % (0-5); GRANULOCYTE % 70.3 % (42.2-75.2); HEMATOCRIT 46.6 % (37-47); MEAN CORPUSCULAR HGB 29.1 PG (27.0-31.0); MEAN CORPUSCULAR HGB CONC 33.5 G/DL (33.0-37.0); MEAN CORPUSCULAR VOLUME 87.1 FL (81.0-99.0); PLATELET COUNT 133 /CUMM (130-400); RBC DISTRIBUTION WIDTH 17.7 % (11.5-14.5); RED BLOOD CELL CT 5.34 /CUMM (4.20-5.40); WHITE BLOOD CELL COUNT 5.1 /CUMM (4.8-10.8)
--- NOTE | 2017-09-19 08:37 | PN- Housestaff ---
See Addendum Brenda LORENZO,Cami 09/19/17 0837: Subjective Follow-up For: - Atrial Fibrillation with RVR - Supratherapeutic INR-resolved - UTI, tretaed with Ceftriaxone x 3 days - Thrombocytopenia-improving Complaints: no complaints Tele-Events Since Last Visit: A. fib at rates ranging from 93-118 but with an increase to the 130s and 140s at 9 PM. Subjective: Patient seen today. Overnight she had no events, denies chest pain, shortness of breath, palpitations. Patient's vitals were stable except for a low temperature 95.7 rectal. Review of Systems Constitutional: Reports: no symptoms. Objective Last 24 Hrs of Vital Signs/I&O Vital Signs Date Time Temp Pulse Resp B/P B/P Pulse O2 O2 Flow FiO2 Mean Ox Delivery Rate 09/19 1655 110 110/70 09/19 1438 96.7 80 18 102/70 96 Room Air 09/19 0857 95.7 91 118/00 09/19 0637 95.7 91 18 118/00 93 Room Air 09/18 2300 96.3 111 18 108/00 91 Room Air 09/18 2230 111 108/00 09/18 1902 96.3 89 18 112/80 93 Intake & Output 09/19 1600 09/19 0800 09/19 0000 Intake Total 1080 600 885 Output Total 400 800 350 Balance 680 -200 535 Intake, IV 600 600 525 Intake, Oral 480 360 Number 1 Bowel Movements Output, Urine 400 800 350 Patient 168 lb Weight Physical Exam General Appearance: Alert, Cooperative, No Acute Distress Skin: No Rashes, No Breakdown Skin Temp/Moisture Exam: Warm/Dry HEENT: Atraumatic, EOMI, Mucous Membr. moist/pink Cardiovascular: Normal S1, Normal S2, No Murmurs Lungs: Clear to Auscultation, Normal Air Movement Abdomen: Normal Bowel Sounds, Soft, No Tenderness Neurological: Normal Speech Current Medications: Current Medications Sig/Willy Start time Last Medication Dose Route Stop Time Status Admin Atorvastatin Calcium 40 MG 1700 12 1700 AC 09/19 PO 1654 Digoxin 0.125 MG 1700 09/15 1700 AC 09/19 PO 1655 Diltiazem HCl 480 MG DAILY 09/19 0900 AC 09/19 PO 0856 Glycerin 2 SPRAY Q2P PRN 09/14 1914 AC 09/14 PO 2020 Magnesium Oxide 400 MG DAILY 09/14 1356 AC 09/19 PO 0902 Melatonin 5 MG AT BEDTIME 09/16 2014 AC 09/18 PO 2230 Metoprolol Tartrate 200 MG Q12 09/15 2100 AC 09/19 PO 0857 Polyethylene Glycol 17 GM DAILY PRN 09/18 1212 AC PO Senna/Docusate Sodium 1 TAB BID PRN 09/14 1400 AC 09/14 PO 1531 Sodium Chloride 1,000 ML Q13H 09/17 1300 DC 09/19 IV 0215 Warfarin Sodium 5 MG COUMADIN 1700 ONE 09/19 1700 DC 09/19 PO 09/19 1701 1654 Last 24 Hrs of Lab/Simone Results Last 24 Hrs of Labs/Mics: Laboratory Tests 09/19/17 0634: Anion Gap 12, Estimated GFR > 60, Glucose 87, Calcium 8.4, Phosphorus 3.1, Magnesium 1.8, Total Bilirubin 0.9, AST 23, ALT 35, Albumin 2.6 L, PT 29.0 H, INR 2.63 H, CBC w Diff NO MAN DIFF REQ, RBC 5.34, MCV 87.1, MCH 29.1, MCHC 33.5 , RDW 17.7 H, MPV 11.0 H, Gran % 70.3, Lymphocytes % 23.1, Monocytes % 4.7, Eosinophils % 1.4, Basophils % 0.5, Absolute Granulocytes 3.6, Absolute Lymphocytes 1.2, Absolute Monocytes 0.2, Absolute Eosinophils 0.1, Absolute Basophils 0 Assessment/Plan Assessment: Ms. Banks is an 82 year-old lady with past medical history significant for atrial fibrillation on Coumadin and [place] 20 years ago was brought in by her family because of the concerns of decreased by mouth intake, feeling weak and confusion and was found to be in atrial fibrillation with RVR on presentation. In the ER patient was found to have a heart rate in 160s, INR of 9, creatinine 1.3 and platelet count of 101. UA dirty with positive nitrates, esterase and packed WBCs. Problem list 1. Atrial fibrillation with RVR 2. Supratherapeutic INR - resolved 3. Urinary tract infection - received ceftriaxone x 3 days. 4. MILI - resolved 5. Thrombocytopenia - improving 6. Hypomagnesemia Plan * Continue to monitor on telemetry. * Continue digoxin 0.125. * Continue metoprolol 200 twice a day and cardizem to 480mg CD. Rates her overall better overnight. * Repeat INR this morning is 2.63. We can dose her home Coumadin 5 mg. * Continue IV fluids for borderline low blood pressure. * Appreciate cardiology recommendations. * Creatinine improved with IV fluids, will continue to monitor. * Patient received ceftriaxone x 3 days for UTI(positive UA in elderly patient with new onset confusion). Urine culture tested positive for Escherichia coli. Will monitor off antibiotics. * Platelet count dropped at the time of admission but now continue to improve, will monitor. * Continue to monitor magnesium level and replete accordingly. * Patient had that in ST R and can be discharged tomorrow. Of note Dr. Olvera will follow-up with her and said she could be considered for ablation. DVT prophylaxis; Alps, patient is on Coumadin for A. fib Patient is DNR/DNI Problem List: 1. Renal failure 2. Dehydration 3. Atrial fibrillation with rapid ventricular response Pain Ratin Pain Location: na Pain Goal: Remain pain free Pain Plan: na Tomorrow's Labs & Rationales: inr cbc bep Smiley Chicas 09/19/17 1150: Attending MD Review Statement Attending Statement Attending MD Statement: examined this patient, discuss w/resident/PA/ROUTER MACHINE OPERATOR, agreed w/resident/PA/ROUTER MACHINE OPERATOR, discussed with family, reviewed EMR data (avail), discussed with nursing, discussed with case mgmt, reviewed images, amended to note Attending Assessment/Plan: Patient admitted to ICU and transferred to [facility] for uncontrolled afib, MILI and UTI s/p treatment. Patient HR was uncontrolled on three rate control agents. Patient is on metoprolol, cardizem and PO digoxin. Cardiology on board. Patient overnight with no new complaints. Plan for ablation as per cardiology. Patient is receiving high dose of cardizem today and we will monitor hemodynamics. Anticipate dc planning if ok with cardiology.
--- NOTE | 2017-09-19 12:06 | PN- Cardiology ---
Subjective Subjective: Clinically about the same today. No specific complaints noted. Remains in atrial fibrillation with reasonable rate control. Apparently was more tachycardic last night. Objective Vital Signs and I&Os Vital Signs Date Time Temp Pulse Resp B/P B/P Pulse O2 O2 Flow FiO2 Mean Ox Delivery Rate 09/19 0857 95.7 91 118/00 09/19 0637 95.7 91 18 118/00 93 Room Air 09/18 2300 96.3 111 18 108/00 91 Room Air 09/18 2230 111 108/00 09/18 1902 96.3 89 18 112/80 93 09/18 1648 106 09/18 1600 97.8 100 20 110/80 96 Room Air 09/18 1310 96 90/60 Intake & Output 09/19 1600 09/19 0800 09/19 0000 09/18 1600 09/18 0800 09/18 0000 Intake Total 600 885 960 120 Output Total 800 350 400 600 200 Balance -200 535 560 -600 -80 Intake, IV 600 525 600 Intake, Oral 360 360 120 Number 1 1 3 Bowel Movements Output, Urine 800 350 400 600 200 Patient 168 lb Weight Physical Exam: General Appearance: no apparent distress, alert, awake, comfortable Head: atraumatic, normal appearance Respiratory: normal breath sounds, chest non-tender, lungs clear Cardiovascular: irregularly irregular, S1, S2, 1/6 systolic murmur left upper sternal border Gastrointestinal: normal bowel sounds, soft, non-tender Extremities: normal inspection, no edema Cranial Nerves: normal hearing, normal speech, PERRL Current Medications: Current Medications Sig/Willy Start time Last Medication Dose Route Stop Time Status Admin Atorvastatin Calcium 40 MG 09/11 170 AC 09/18 PO 1648 Digoxin 0.125 MG 09/15 1700 AC 09/18 PO 1648 Diltiazem HCl 480 MG DAILY 09/19 0900 AC 09/19 PO 0856 Glycerin 2 SPRAY Q2P PRN 09/14 191 AC 09/14 PO 202 Magnesium Oxide 400 MG DAILY 09/14 1356 AC 09/19 PO 0902 Melatonin 5 MG AT BEDTIME 09/16 2014 AC 09/18 PO 2230 Metoprolol Tartrate 200 MG Q12 09/15 2100 AC 09/19 PO 0857 Polyethylene Glycol 17 GM DAILY PRN 09/18 1212 AC PO Polyethylene Glycol 17 GM DAILY 09/14 1357 DC 09/17 PO 0903 Senna/Docusate Sodium 1 TAB BID PRN 09/14 1400 AC 09/14 PO 1531 Sodium Chloride 1,000 ML Q13H 09/17 1300 AC 09/19 IV 0215 Results Last 48 Hrs of Labs/Mics: Laboratory Tests 09/19/17 0634: Anion Gap 12, Estimated GFR > 60, Glucose 87, Calcium 8.4, Phosphorus 3.1, Magnesium 1.8, Total Bilirubin 0.9, AST 23, ALT 35, Albumin 2.6 L, PT 29.0 H, INR 2.63 H, CBC w Diff NO MAN DIFF REQ, RBC 5.34, MCV 87.1, MCH 29.1, MCHC 33.5 , RDW 17.7 H, MPV 11.0 H, Gran % 70.3, Lymphocytes % 23.1, Monocytes % 4.7, Eosinophils % 1.4, Basophils % 0.5, Absolute Granulocytes 3.6, Absolute Lymphocytes 1.2, Absolute Monocytes 0.2, Absolute Eosinophils 0.1, Absolute Basophils 0 09/18/17 0330: Anion Gap 12, Estimated GFR > 60, BUN/Creatinine Ratio 12.9, Magnesium 2.2, PT 41.8 H, INR 3.78 H, CBC w Diff NO MAN DIFF REQ, RBC 5.10, MCV 87.7, MCH 29.0, MCHC 33.1, RDW 18.1 H, MPV 11.7 H, Gran % 68.7, Lymphocytes % 23.6, Monocytes % 6.0, Eosinophils % 1.1, Basophils % 0.6, Absolute Granulocytes 3.4, Absolute Lymphocytes 1.2, Absolute Monocytes 0.3, Absolute Eosinophils 0.1, Absolute Basophils 0 Assessment/Plan Assessment/Plan Assessment: 1. Atrial fibrillation with borderline elevated ventricular rate 2. Urinary tract infection 3. Acute renal insufficiency 4. Thrombocytopenia 5. Supratherapeutic INR 6. Borderline hypotension 7. Hypocalcemia 8. Hypomagnesemia Plan: - Continue long acting diltiazem - Continue metoprolol at current dose - Continue digoxin and recheck level in one week - Discharge planning for STR proceeding - Outpatient followup with regular cloth shrinking tester as noted. - PT Continue telemetry? Yes
--- NOTE | 2017-09-19 13:55 | Discharge Summary ---
Visit Information Visit Dates Admission Date: 09/10/17 Discharge Date: 09/20/17 Hospital Course Course Attending Physician: Aviva LORENZO,Smiley Primary Care Physician: Patient Has No Primary Care Dr Hospital Course: Ms. Banks is an 82 year-old lady with past medical history significant for atrial fibrillation on Coumadin and [place] 20 years ago was brought in by her family because of concerns of decreased by mouth intake, feeling weak and confusion and was found to be in atrial fibrillation with RVR on presentation. In the ER patient was found to have a heart rate in 160s, INR of 9, creatinine 1.3 and platelet count of 101. UA with positive nitrates, esterase and packed WBCs. Problem list 1. Atrial fibrillation with RVR 2. Supratherapeutic INR - resolved 3. Urinary tract infection - received ceftriaxone x 3 days. 4. MILI - resolved 5. Thrombocytopenia - improving 6. Hypomagnesemia Atrial Fibrillation with RVR and Supratherapeutic INR; At the time of admission patient was given 1 dose of IV Cardizem 10 mg and 30 mg of by mouth Cardizem and was started on IV Cardizem drip. She also received IV Lopressor pushes, total of 20 mg after which she was hypotensive and the Cardizem drip was stopped. She was given 3.5 L of IV fluids with some improvement in her blood pressure. Cardiology was consulted who recommended giving IV digoxin, recieved digoxin x 2 with heart rate still ranging between 130-150. Further recommendations were to start the patient on cardizem drip which as unavailable because of national shortage and patient was started on amiodarone drip instead. Patient heart rate improved, now in low 100s, amiodarone drip discontinued. * Continue Digoxin PO 0.125mg. * Continue metoprolol 200mg twice a day * Continue Cardizem CD 480mg yesterday. * Patient received 1 dose of vitamin K 2.5 mg by mouth at the time of admission for INR of 9.0. Currently therapeutic. Repeat INR everyday and dose Coumadin accordingly. Urinary tract infection; Patient received ceftriaxone x 3 days for UTI (positive UA in elderly patient with new onset confusion). * Currently monitoring off antibiotics. * Monitor vitals and white blood cell count. MILI: Creatinine of 1.4 likely secondary to dehydration, improved with IV fluids. On d/c Cr .7. * Continue to monitor. Hypomagnesemia:Continue to monitor magnesium level and replete accordingly. DVT prophylaxis; Alps, patient is on Coumadin for A. fib Patient is DNR/DNI Allergies: Coded Allergies: No Known Allergies (09/11/17) Pertinent Lab Results: Laboratory Tests 09/19 09/18 0634 0330 Chemistry Sodium (137 - 145 mmol/L) 137 136 L Potassium (3.5 - 5.1 mmol/L) 3.9 4.0 Chloride (98 - 107 mmol/L) 106 106 Carbon Dioxide (22 - 30 mmol/L) 20 L 18 L Anion Gap (5 - 16) 12 12 BUN (7 - 17 mg/dL) 7 9 Creatinine (0.5 - 1.0 mg/dL) 0.7 0.7 Estimated GFR (>60 ml/min) > 60 > 60 BUN/Creatinine Ratio (7 - 25 %) 12.9 Glucose (65 - 99 mg/dL) 87 Calcium (8.4 - 10.2 mg/dL) 8.4 Phosphorus (2.5 - 4.5 mg/dL) 3.1 Magnesium (1.6 - 2.3 mg/dL) 1.8 2.2 Total Bilirubin (0.2 - 1.3 mg/dL) 0.9 AST (14 - 36 U/L) 23 ALT (9 - 52 U/L) 35 Albumin (3.5 - 5.0 g/dL) 2.6 L Coagulation PT (9.4 - 12.5 SEC) 29.0 H 41.8 H INR (0.90 - 1.19) 2.63 H 3.78 H Hematology CBC w Diff NO MAN DIFF REQ NO MAN DIFF REQ WBC (4.8 - 10.8 /CUMM) 5.1 5.0 RBC (4.20 - 5.40 /CUMM) 5.34 5.10 Hgb (12.0 - 16.0 G/DL) 15.6 14.8 Hct (37 - 47 %) 46.6 44.7 MCV (81.0 - 99.0 FL) 87.1 87.7 MCH (27.0 - 31.0 PG) 29.1 29.0 MCHC (33.0 - 37.0 G/DL) 33.5 33.1 RDW (11.5 - 14.5 %) 17.7 H 18.1 H Plt Count (130 - 400 /CUMM) 133 132 MPV (7.4 - 10.4 FL) 11.0 H 11.7 H Gran % (42.2 - 75.2 %) 70.3 68.7 Lymphocytes % (20.5 - 51.1 %) 23.1 23.6 Monocytes % (1.7 - 9.3 %) 4.7 6.0 Eosinophils % (0 - 5 %) 1.4 1.1 Basophils % (0.0 - 2.0 %) 0.5 0.6 Absolute Granulocytes (1.4 - 6.5 /CUMM) 3.6 3.4 Absolute Lymphocytes (1.2 - 3.4 /CUMM) 1.2 1.2 Absolute Monocytes (0.10 - 0.60 /CUMM) 0.2 0.3 Absolute Eosinophils (0.0 - 0.7 /CUMM) 0.1 0.1 Absolute Basophils (0.0 - 0.2 /CUMM) 0 0 04/18 0530 Chemistry Sodium (137 - 145 mmol/L) 136 L Potassium (3.5 - 5.1 mmol/L) 3.9 Chloride (98 - 107 mmol/L) 106 Carbon Dioxide (22 - 30 mmol/L) 20 L Anion Gap (5 - 16) 10 BUN (7 - 17 mg/dL) 10 Creatinine (0.5 - 1.0 mg/dL) 0.7 Estimated GFR (>60 ml/min) > 60 Glucose (65 - 99 mg/dL) 87 Calcium (8.4 - 10.2 mg/dL) 8.2 L Phosphorus (2.5 - 4.5 mg/dL) 2.6 Magnesium (1.6 - 2.3 mg/dL) 1.9 Total Bilirubin (0.2 - 1.3 mg/dL) 1.0 AST (14 - 36 U/L) 16 ALT (9 - 52 U/L) 29 Albumin (3.5 - 5.0 g/dL) 2.4 L Coagulation PT (9.4 - 12.5 SEC) 44.0 *H INR (0.90 - 1.19) 3.98 H Hematology CBC w Diff NO MAN DIFF REQ WBC (4.8 - 10.8 /CUMM) 5.2 RBC (4.20 - 5.40 /CUMM) 4.68 Hgb (12.0 - 16.0 G/DL) 13.5 Hct (37 - 47 %) 40.4 MCV (81.0 - 99.0 FL) 86.3 MCH (27.0 - 31.0 PG) 28.9 MCHC (33.0 - 37.0 G/DL) 33.4 RDW (11.5 - 14.5 %) 17.7 H Plt Count (130 - 400 /CUMM) 107 L MPV (7.4 - 10.4 FL) 11.2 H Gran % (42.2 - 75.2 %) 71.4 Lymphocytes % (20.5 - 51.1 %) 19.9 L Monocytes % (1.7 - 9.3 %) 6.6 Eosinophils % (0 - 5 %) 1.6 Basophils % (0.0 - 2.0 %) 0.5 Absolute Granulocytes (1.4 - 6.5 /CUMM) 3.7 Absolute Lymphocytes (1.2 - 3.4 /CUMM) 1.0 L Absolute Monocytes (0.10 - 0.60 /CUMM) 0.3 Absolute Eosinophils (0.0 - 0.7 /CUMM) 0.1 Absolute Basophils (0.0 - 0.2 /CUMM) 0 Toxicology Digoxin (0.8 - 2.0 ng/mL) 1.0 Urines Urine Color (YEL,AMB,STR) YEL Urine Clarity (CLEAR) CLDY H Urine pH (5.0 - 8.0) 6.0 Ur Specific [place] (1.001 - 1.035) >= 1.030 Urine Protein (NEG,<30 MG/DL) TRACE H Urine Ketones (NEG) NEG Urine Nitrite (NEG) NEG Urine Bilirubin (NEG) NEG Urine Urobilinogen (0.1 - 1.0 EU/dl) 0.2 Ur Leukocyte Esterase (NEG) SMALL H Ur Microscopic SEDIMENT EXAMINED Urine RBC (0 - 5 /HPF) RARE Urine WBC (0 - 2 /HPF) 25-50 H Ur Epithelial Cells (NONE,FEW) MOD H Urine Bacteria (NEG/NONE) FEW H Micro UA Comment Urine Hemoglobin (NEG) TRACE-INTACT Urine Glucose (N MG/DL) NEG Disposition Summary Disposition Principal Diagnosis: afib with rvr Additional Diagnosis: poor po intke Discharge Disposition: SNF Discharge Instructions General Discharge Information Code Status: Do Not Resucitate/Intubat Patient's Diet: as tolerated Patient's Activity: as tolerated Follow-Up Instructions/Appts: see above Medications at Discharge Discharge Medications: Stop taking the following medications: Diltiazem HCl (Cartia Xt) 240 MG CAP.ER.24H ORAL EVERY 24 HOURS Qty = 30 Rosuvastatin Calcium (Crestor) 10 MG TABLET ORAL DAILY Qty = 30 Continue taking these medications: Metoprolol Succinate (Metoprolol Succinate) 200 MG TAB.ER.24H 1 Tablet ORAL DAILY Qty = 30 Comments: Last Taken: 09/20/17 Time: 0900 AM Warfarin Sodium (Coumadin) 5 MG TABLET 1 Tablet ORAL DAILY Start taking the following new medications: Digoxin (Lanoxin) 125 MCG TABLET 0.125 Milligram ORAL DAILY Qty = 30 No Refills Atorvastatin Calcium (Atorvastatin Calcium) 40 MG TABLET 40 Milligram ORAL DAILY Qty = 30 No Refills Diltiazem HCl (Cardizem Cd) 240 MG CAP.ER.24H 480 Milligram ORAL DAILY Qty = 30 No Refills Copies To: Smiley Chicas MD; Wade LORENZO,Leonardo Attending MD Review Statement Documenting Attending: Smiley Chicas MD Other Findings: Patient overnight no new complaints. She denies chest pain, headache, dizziness. Patient had HR controlled in past 24 hrs. Patient on high doses of metoprolol, cardizem. She also on digoxin. Contniue with coumadin. Cardiology closely follwoed patient [facility] [place] 2[place] stay. Plan for ablation or permanent pacemaker in future as per cardiology. Follow up outpatient Cardiology Dr Laguerre in 1 week of discharge and PCP.
[2017-09-19 14:38] VITALS: BP 102/70
[2017-09-19] MEDS ORDERED: ATORVASTATIN CA40 M1 PO ×2 (15:33→15:45)
[2017-09-19] MEDS ORDERED: CARDIZEM CD240 M1 PO (15:33)
[2017-09-19] MEDS ORDERED: LANOXIN125 MCG PO ×2 (15:33→15:45)
--- NOTE | 2017-09-19 15:38 | Patient Discharge Instructions ---
Discharge Instructions General Discharge Information You were seen/treated for: 1. afib with rapid rate 2. supratherapeutic INR (overly thin blood) 3. UTI Special Instructions: 1. please follow up with pcp in one week 2. please follow up with senior director of [employer] solutions in one week for potential need for ablation 3. please follow up on your INR readings and coumadin 4. please take all medications as directed Diet Continue normal diet: Yes Activity Full Activity/No Limits: Yes (as tolerated) Acute Coronary Syndrome Inclusion Criteria At DC or during hospital stay patient has or had the following: ACS DIAGNOSIS No Discharge Core Measures Meds if any: Prescribed or Continued at Discharge Meds if any: NOT Prescribed or Continued at Discharge Congestive Heart Failure Inclusion Criteria At DC or during hospital stay patient has or had the following: CHF DIAGNOSIS No Discharge Core Measures Meds if any: Prescribed or Continued at Discharge Meds if any: NOT Prescribed or Continued at Discharge Cerebrovascular accident Inclusion Criteria At DC or during hospital stay patient has or had the following: CVA/TIA Diagnosis No Discharge Core Measures Meds if any: Prescribed or Continued at Discharge Meds if any: NOT Prescribed or Continued at Discharge Venous thromboembolism Inclusion Criteria VTE Diagnosis No VTE Type NONE VTE Confirmed by (Test) NONE Discharge Core Measures - Per Current guidelines, there needs to be overlap - treatment for the first 5 days of Warfarin therapy. - If discharged on Warfarin prior to 5 days of - overlap therapy, the patient will need to be - assessed for post discharge needs including - *Post discharge parental anticoagulation - *Warfarin and/or parental anticoagulation education - *Follow up date to check INR post discharge At least 5 days overlap therapy as Inpatient No Meds if any: Prescribed or Continued at Discharge Note: Overlap Therapy is Warfarin and Anticoagulant Meds if any: NOT Prescribed or Continued at Discharge
[2017-09-19 22:45] VITALS: BP 106/62
[2017-09-20 07:18] VITALS: BP 126/76
[2017-09-20 08:24] LABS: ABSOLUTE BASOPHIL COUNT 0 /CUMM (0.0-0.2); ABSOLUTE EOSINOPHIL COUNT 0 /CUMM (0.0-0.7); ABSOLUTE GRANULOCYTE CT 3.1 /CUMM (1.4-6.5); ABSOLUTE LYMPH COUNT 0.9 /CUMM (1.2-3.4); ABSOLUTE MONOCYTE COUNT 0.3 /CUMM (0.10-0.60); BASOPHIL % 0.5 % (0.0-2.0); HEMATOCRIT 42.3 % (37-47); MEAN CORPUSCULAR HGB 29.2 PG (27.0-31.0); MEAN CORPUSCULAR HGB CONC 33.9 G/DL (33.0-37.0); MEAN CORPUSCULAR VOLUME 86.2 FL (81.0-99.0); MEAN PLATELET VOLUME 11.2 FL (7.4-10.4); PLATELET COUNT 131 /CUMM (130-400); RBC DISTRIBUTION WIDTH 17.5 % (11.5-14.5); RED BLOOD CELL CT 4.91 /CUMM (4.20-5.40); WHITE BLOOD CELL COUNT 4.3 /CUMM (4.8-10.8)
[2017-09-20 08:25] LABS: PT 24.3 SEC (9.4-12.5)
--- NOTE | 2017-09-20 08:53 | PN- Housestaff ---
Shiraz LORENZO,Carlitos 09/20/17 0853: Subjective Follow-up For: A johanna Tele-Events Since Last Visit: Michaelle spencer with HR [id number] Subjective: Patient was seen and examined at bedside. She was resting comfortably. She had no acute events overnight. She has no complaints currently. Review of Systems Constitutional: Reports: no symptoms. EENTM: Reports: no symptoms. Cardiovascular: Denies: chest pain, palpitations. Respiratory: Reports: no symptoms. Gastrointestinal: Reports: no symptoms. Genitourinary: Reports: no symptoms. Musculoskeletal: Reports: no symptoms. Objective Last 24 Hrs of Vital Signs/I&O Vital Signs Date Time Temp Pulse Resp B/P B/P Pulse O2 O2 Flow FiO2 Mean Ox Delivery Rate 09/20 0848 126/76 09/20 0718 96.7 90 20 126/76 93 09/19 2245 96.3 81 20 106/62 91 09/19 2016 85 122/78 09/19 1655 110 110/70 09/19 1438 96.7 80 18 102/70 96 Room Air 09/19 0857 95.7 91 118/00 Intake & Output 09/20 1600 09/20 0800 09/20 0000 Intake Total 50 150 Output Total 200 350 Balance -150 -200 Intake, Oral 50 150 Output, Urine 200 350 Patient 172 lb Weight Physical Exam General Appearance: Alert, Oriented X3, Cooperative, No Acute Distress Cardiovascular: Regular Rate, Normal S1, Normal S2, irregularly irregular rhythm Lungs: Clear to Auscultation, Normal Air Movement Abdomen: Normal Bowel Sounds, Soft, No Tenderness Current Medications: Current Medications Sig/Willy Start time Last Medication Dose Route Stop Time Status Admin Atorvastatin Calcium 40 MG 0 09/11 1700 AC 09/19 PO 1654 Digoxin 0.125 MG 0 09/15 1700 AC 09/19 PO 1655 Diltiazem HCl 480 MG DAILY 09/19 0900 AC 09/20 PO 0848 Glycerin 2 SPRAY Q2P PRN 09/14 191 AC 09/14 PO 2020 Magnesium Oxide 400 MG DAILY 09/14 1356 AC 09/20 PO 0848 Melatonin 5 MG AT BEDTIME 09/16 2014 AC 09/19 PO 2014 Metoprolol Tartrate 200 MG Q12 09/15 2100 AC 09/20 PO 0848 Polyethylene Glycol 17 GM DAILY PRN 09/18 1212 AC PO Senna/Docusate Sodium 1 TAB BID PRN 09/14 1400 AC 09/14 PO 1531 Sodium Chloride 1,000 ML Q13H 09/17 1300 DC 09/19 IV 0215 Warfarin Sodium 5 MG COUMADIN 1700 ONE 09/19 1700 DC 09/19 PO 09/19 1701 1654 Last 24 Hrs of Lab/Simone Results Last 24 Hrs of Labs/Mics: Laboratory Tests 09/20/17 0616: Anion Gap 7, Estimated GFR > 60, BUN/Creatinine Ratio 8.6, PT 24.3 H, INR 2.21 H, CBC w Diff NO MAN DIFF REQ, RBC 4.91, MCV 86.2, MCH 29.2, MCHC 33.9, RDW 17.5 H, MPV 11.2 H, Gran % 72.0, Lymphocytes % 20.1 L, Monocytes % 6.4, Eosinophils % 1.0, Basophils % 0.5, Absolute Granulocytes 3.1, Absolute Lymphocytes 0.9 L, Absolute Monocytes 0.3, Absolute Eosinophils 0, Absolute Basophils 0 Assessment/Plan Assessment: Ms. Banks is an 82 year-old lady with past medical history significant for atrial fibrillation on Coumadin and [place] 20 years ago was brought in by her family because of the concerns of decreased by mouth intake, feeling weak and confusion and was found to be in atrial fibrillation with RVR on presentation. In the ER patient was found to have a heart rate in 160s, INR of 9, creatinine 1.3 and platelet count of 101. UA dirty with positive nitrates, esterase and packed WBCs. Problem list 1. Atrial fibrillation currently rate controlled, on Coumadin Plan * Patient is stable for discharge today has been cleared by cardiology * Continue digoxin 0.125. * Continue metoprolol 200 twice a day and cardizem to 480mg CD. Rates her overall better overnight. * Repeat INR this morning is 2.21. She'll be discharged and Coumadin will be given at STR * Appreciate cardiology recommendations. * Creatinine has remained stable * Patient received ceftriaxone x 3 days for UTI(positive UA in elderly patient with new onset confusion). Urine culture tested positive for Escherichia coli. Will monitor off antibiotics. * Platelet count dropped at the time of admission but now continue to improve, will monitor. DVT prophylaxis; Alps, patient is on Coumadin for A. fib Patient is DNR/DNI Diet: Heart healthy Problem List: 1. A-fib Pain Ratin Pain Location: none Pain Goal: Remain pain free Pain Plan: pain pathway Tomorrow's Labs & Rationales: none Smiley Chicas 09/20/17 1314: Attending MD Review Statement Attending Statement Attending MD Statement: examined this patient, discuss w/resident/PA/TOOL SALVAGE WORKER, agreed w/resident/PA/TOOL SALVAGE WORKER, discussed with family, reviewed EMR data (avail), discussed with nursing, discussed with case mgmt, reviewed images, amended to note Attending Assessment/Plan: Patient overnight no new complaints. She denies chest pain, headache., dizziness. Patient had HR controlled in past 24 hrs. Patient on high doses of metoprolol, cardizem. She also on digoxin. Contniue with coumadin. Cardiology closely follwoed patient [facility] stay. Plan for ablation or permanent pacemaker in future as per cardiology. Follow up outpatient Cardiology Dr Laguerre in 1 week of discharge and PCP.
--- NOTE | 2017-09-20 10:19 | PN- Cardiology ---
Subjective Subjective: * No complaints * atrial fibrillation with intermittently elevated heart rate Objective Vital Signs and I&Os Vital Signs Date Time Temp Pulse Resp B/P B/P Pulse O2 O2 Flow FiO2 Mean Ox Delivery Rate 09/20 0848 126/76 09/20 0718 96.7 90 20 126/76 93 09/19 2245 96.3 81 20 106/62 91 09/19 2016 85 122/78 09/19 1655 110 110/70 09/19 1438 96.7 80 18 102/70 96 Room Air Intake & Output 09/20 1600 09/20 0800 09/20 0000 09/19 1600 09/19 0809/19 0000 Intake Total 50 150 1080 600 885 Output Total 200 350 400 800 350 Balance -150 -200 680 -200 535 Intake, IV 600 600 525 Intake, Oral 50 150 480 360 Number 1 Bowel Movements Output, Urine 200 350 400 800 350 Patient 172 lb 168 lb Weight Physical Exam: General: WD/WN female in NAD; alert and oriented x 3 Neck: no JVD Heart: irregularly irregular with 2/6 systolic murmur Lungs: clear bilaterally Extremities: no edema Assessment/Plan Assessment/Plan * This patient feels well without symptoms of myocardial ischemia or decompensated heart failure. * This patient does have occasional heart rate excursions into the 100-110 range. I would not be in favor of adding any more rate control medications at this time since she has some non-significant pauses. These are not a concern at this point in time but I would not want to create a situation where they become so. If the patient continues to have issues with rate control she would benefit from an AV stephanie ablation with permanent pacemaker placement. * Okay to discharge to a [facility] with outpatient follow up. Continue current medications. Continue telemetry? Yes
[2017-09-20 13:01] VITALS: BP 126/76
== END 2017-09-20 13:15 | DRG 309 ==
LOC: DELPENDDIS → ERH 19:02 → CRI 22:38 → ERHI 22:38 → EDBEDREQTM 09-11 03:57 → EDBEDREQ 09-11 03:57 → EDBEDREQDT 09-11 03:57 → ERHI 09-11 03:59 → ENRESERV 09-11 04:13 → CRI 09-11 05:01 → ENTRNSPT 09-18 18:12 → 1NO 09-18 18:49 → CMPTRNSPT 09-18 18:58 → ENPENDDIS 09-19 11:07 → 1NO 09-19 11:33 → ENPENDDIS 09-20 11:44 → 1NO 09-20 13:15
PROVIDERS: Hospitalist; Internal Medicine; Pediatrics; Student in an Organized Health Care Education/Training Program
DX: I48.91 Unspecified atrial fibrillation (principal); N17.9 Acute kidney failure, unspecified; D69.6 Thrombocytopenia, unspecified; I95.9 Hypotension, unspecified; N39.0 Urinary tract infection, site not specified; E83.51 Hypocalcemia; E83.42 Hypomagnesemia; I25.2 Old myocardial infarction; Z66 Do not resuscitate; B96.20 Unspecified Escherichia coli [E. coli] as the cause of diseases classified elsewhere; Z79.01 Long term (current) use of anticoagulants; Z87.891 Personal history of nicotine dependence
CPT/HCPCS: 1NP; CCU; ERO; 36415; 36592; 71045; 76775; 81001; 82436; 87040; 87086; 93005; 93010; 93306; 96374; 96375; 96376; 97110-GO; 97116-GO; 97161-GP; 97530-GO; 99291; J0282; J0610; J0696; J1160; J7060; J7508